=== PATIENT | female | born 1975 | race Caucasian/White ===

== ENCOUNTER 2018-03-24 11:03 | Inpatient (IN) | payer OTHER, MEDICAID, SELFPAY ==
[2018-03-24] VITALS (13 sets, daily range): BP systolic 124–158; BP diastolic 73–108; PULSE 60–120; RESP 12–20; TEMP 36.6–37; O2SAT 90–98; BMI 39.6
[2018-03-24] MEDS: ONDANSETRON 4 MG/2 ML INJ IV ×2 (11:46→15:00)
[2018-03-24 11:53] LABS: Add Manual Diff / Slide Review NO; Basophils Absolute Auto 100 /uL (0-100); Basophils Percent Auto 0.8 % (0-2); Eosinophils Absolute Auto 100 /uL (0-450); Eosinophils Percent Auto 0.5 % (2-4); Hematocrit 38.3 % (36-46); Hemoglobin 12.2 g/dL (12.0-16.0); Lymphocytes Absolute Auto 1300 /uL (1100-4500); Lymphocytes Percent Auto 12.1 % (25-40); Mean Corpuscular HGB Conc 31.8 % (30-36); Mean Corpuscular Hemoglobin 23.2 PG (26-34); Mean Corpuscular Volume 72.9 fL (80-100); Monocytes Absolute Auto 300 /uL (0-900); Monocytes Percent Auto 2.9 % (3-14); Neutrophils Absolute Auto 9300 /uL (1500-7000); Neutrophils Percent Auto 83.7 % (50-75); Platelet Count 306 X10^3/uL (150-400); Red Blood Cell Count 5.26 X10^6/uL (4.0-5.2); Red Cell Distribution Width 16.7 % (11.6-14.8); White Blood Cell Count 11.1 X10^3/uL (4.5-11.0)
[2018-03-24] MEDS: SODIUM CHLORIDE 0.9% 1,000 ML 1000 ML IV ×2 (12:06→14:35)
--- NOTE | 2018-03-24 12:06 | ED.ABDPAIN ---
HPI - Abdominal Pain <Denisha Ram PA-C - Last Filed: 03/24/18 20:04> General Chief Complaint: Abdominal Pain Stated Complaint: States pain in both kidneys, abd pain, vomiting Time Seen by Provider: 03/24/18 12:04 Source: patient Mode of arrival: ambulatory Limitations: no limitations History of Present Illness HPI narrative: This 43-year-old female comes to ED secondary to worsening epigastric area pain. She states that she has had left-sided flank pain for 9 or 10 days now and was actually seen at the walk-in clinic 03/14 for this. Presumed to be kidney stone. The day prior to onset of flank pain, she had some generalized abdominal pain and body aches all over.She states that she has had persistent flank pain this whole time, not resolved, but has not kept her from work. She states that she started to have right-sided flank pain as well which is less severe. She states that initially that pain felt similar to her previous kidney stone and they presumed that is what it was. She was treated with pain medicine and tamsulosin. He she states that yesterday morning, she started to have severe pain in the epigastric area. She states that her abdomen feels swollen and she feels puffy all over. She states that the pain pattern is a crescendo decrescendo pattern. It will gradually worsen over a period of 2 or 3 hr, then she will vomit, and the pain improves a little bit, then gradually starts to worsen until she vomits again. Somewhat better after vomiting. She has not been able to keep down food or fluids due to nausea associated with this. She states pain is quite severe and always persistent at some level in the epigastrium. She denies any urinary symptoms or hematuria. She denies any possibility of . She states that a couple of weeks ago her bowel movements were runny and now somewhat more constipated, had a bowel movement last night. She states that she had panendoscopy last year which was normal (she states that she has dumping syndrome). She denies any other exacerbating or alleviating features for pain aside from time and vomiting. She denies any chest pain, or dyspnea. She has not had any fever. Related Data Home Medications Medication Instructions Recorded Confirmed ipratropium bromide 17 1 puff INHALATION Q6H PRN 03/14/18 03/24/18 mcg/actuation HFA aerosol inhaler Previous Rx's Medication Instructions Recorded tamsulosin 0.4 mg capsule 0.4 mg PO DAILY #30 cap 03/14/18 tramadol 50 mg tablet 50 mg PO Q4-6H PRN #20 tab 03/14/18 Allergies Allergy/AdvReac Type Severity Reaction Status Date / Time morphine Allergy Severe Vomiting Verified 03/24/18 11:21 Review of Systems <Denisha Ram PA-C - Last Filed: 03/24/18 20:04> Review of Systems ROS Unobtainable: All systems reviewed & are unremarkable except as noted in HPI and below PFSH <Denisha Ram PA-C - Last Filed: 03/24/18 20:04> Comment: no EtOH, +THC Exam <Denisha Ram PA-C - Last Filed: 03/24/18 20:04> Narrative Exam Narrative: GENERAL APPEARANCE: Patient somewhat uncomfortable but in NAD HEENT: PERRL, EOMI, conjunctivae pink, no scleral icterus NECK: Supple LUNGS: Clear to auscultation bilaterally. HEART: Rate and rhythm regular, normal S1 and S2, no S3 or S4. ABDOMEN: Soft, obese, nondistended, bowel sounds present x 4 quadrants, no masses palpable, no palpable hepatosplenomegaly. tender through the epigastrium and left midline most just superior to the umbilicus, less tender on the right. No lower abdominal tenderness, guarding, or rebound. Exquisite left CVAT, none on the right EXTREMITIES: No edema, no cyanosis DERMATOLOGIC: No jaundice or exanthem NEUROLOGIC: Alert and oriented with normal speech and coordination Initial Vital Signs Initial Vital Signs: Vital Signs Temperature 98.6 F 03/24/18 11:17 Pulse Rate 120 H 03/24/18 11:17 Respiratory Rate 03/24/18 11:17 Blood Pressure 158/108 H 03/24/18 11:17 Pulse Oximetry 97 03/24/18 11:17 <Shay Vargas DO - Last Filed: 03/25/18 07:12> Initial Vital Signs Initial Vital Signs: Vital Signs Temperature 98.6 F 03/24/18 11:17 Pulse Rate 120 H 03/24/18 11:17 Respiratory Rate 03/24/18 11:17 Blood Pressure 158/108 H 03/24/18 11:17 Pulse Oximetry 97 03/24/18 11:17 Course <Denisha Ram PA-C - Last Filed: 03/24/18 20:04> Additional Information: Patient is not able to tolerate p.o fluids or food despite pain medications and [address] Coon who will admit patient. Orders Ordered: ED Orders 03/25/18 GI Panel (Film Array) Routine Procalcitonin Routine 03/25/18 05:53 Lipase Routine 03/25/18 17:15 Complete Blood Count AUTO DIFF DAILY Comprehensive Metabolic Panel DAILY 03/26/18 17:15 Complete Blood Count AUTO DIFF DAILY Comprehensive Metabolic Panel DAILY Enoxaparin Sodium (Lovenox) 40 mg SUBCUT DAILY [facility] Hydromorphone HCl (Dilaudid) 1 mg IV Q3HR PRN PRN Reason: Pain, Severe (7-10) Last Admin: 03/25/18 01:31 Dose: 1 mg Admin: 03/24/18 20:54 Dose: 1 mg Sodium Chloride (Normal Saline 0.9%) 1,000 mls @ 150 mls/hr IV CONT [facility] Last Admin: 03/25/18 00:31 Dose: 150 mls/hr Infusion: 03/25/18 00:31 Dose: 150 mls/hr Admin: 03/24/18 18:11 Dose: 150 mls/hr Ketorolac Tromethamine (Toradol) 30 mg IV Q6HR [facility] Stop: 03/26/18 17:04 Last Admin: 03/25/18 06:04 Dose: 30 mg Admin: 03/25/18 00:29 Dose: 30 mg Admin: 03/24/18 18:16 Dose: 30 mg Ondansetron HCl (Zofran) 4 mg IV Q8HR PRN PRN Reason: Nausea And Vomiting Last Admin: 03/25/18 01:30 Dose: 4 mg Pantoprazole Sodium (Protonix) 40 mg IV DAILY [facility] Last Admin: 03/25/18 03:27 Dose: 40 mg Discontinued Medications Dexamethasone (Decadron) 10 mg IV NOW ONE Stop: 03/24/18 13:11 Last Admin: 03/24/18 13:19 Dose: 10 mg Hydromorphone HCl (Dilaudid) 0.5 mg IV NOW ONE Stop: 03/24/18 12:22 Last Admin: 03/24/18 12:58 Dose: 0.5 mg Hydromorphone HCl (Dilaudid) 0.5 mg IV NOW ONE Stop: 03/24/18 14:31 Last Admin: 03/24/18 14:35 Dose: 0.5 mg Hydromorphone HCl (Dilaudid) 0.5 mg IV NOW ONE Stop: 03/24/18 14:33 Last Admin: 03/24/18 14:47 Dose: Not Given Hydromorphone HCl (Dilaudid) 1 mg IV NOW ONE Stop: 03/24/18 16:18 Last Admin: 03/24/18 16:31 Dose: 1 mg Sodium Chloride (Normal Saline 0.9%) 1,000 mls @ 1,000 mls/hr IV BOLUS ONE Stop: 03/24/18 13:04 Last Infusion: 03/24/18 14:46 Dose: 0 mls/hr Admin: 03/24/18 12:06 Dose: 1,000 mls/hr Sodium Chloride (Normal Saline 0.9%) 1,000 mls @ 1,000 mls/hr IV BOLUS ONE Stop: 03/24/18 15:29 Last Infusion: 03/24/18 15:55 Dose: 0 mls/hr Admin: 03/24/18 14:35 Dose: 1,000 mls/hr Sodium Chloride (Normal Saline 0.9%) 1,000 mls @ 1,000 mls/hr IV BOLUS ONE Stop: 03/24/18 15:31 Last Admin: 03/24/18 14:46 Dose: Not Given Ketorolac Tromethamine (Toradol) 30 mg IV NOW ONE Stop: 03/24/18 12:22 Last Admin: 03/24/18 12:56 Dose: 30 mg Ondansetron HCl (Zofran) 4 mg IV NOW ONE Stop: 03/24/18 11:34 Last Admin: 03/24/18 11:46 Dose: 4 mg Ondansetron HCl (Zofran) 4 mg IV NOW ONE Stop: 03/24/18 14:58 Last Admin: 03/24/18 15:00 Dose: 4 mg Pantoprazole Sodium (Protonix) 40 mg IV NOW ONE Stop: 03/24/18 12:22 Last Admin: 03/24/18 12:57 Dose: 40 mg Prochlorperazine (Compazine) 5 mg IV NOW ONE Stop: 03/24/18 16:18 Last Admin: 03/24/18 16:35 Dose: 5 mg Vital Signs - 8 hr 03/24/18 23:30 03/25/18 03:10 Temperature 97.9 F 97.6 F Pulse Rate 61 54 L Respiratory Rate 16 16 Blood Pressure 142/80 H 139/77 Pulse Oximetry 96 97 <Shay Vargas DO - Last Filed: 03/25/18 07:12> Orders Ordered: ED Orders 03/25/18 GI Panel (Film Array) Routine Procalcitonin Routine 03/25/18 05:53 Lipase Routine 03/25/18 17:15 Complete Blood Count AUTO DIFF DAILY Comprehensive Metabolic Panel DAILY 03/26/18 17:15 Complete Blood Count AUTO DIFF DAILY Comprehensive Metabolic Panel DAILY Enoxaparin Sodium (Lovenox) 40 mg SUBCUT DAILY [facility] Hydromorphone HCl (Dilaudid) 1 mg IV Q3HR PRN PRN Reason: Pain, Severe (7-10) Last Admin: 03/25/18 01:31 Dose: 1 mg Admin: 03/24/18 20:54 Dose: 1 mg Sodium Chloride (Normal Saline 0.9%) 1,000 mls @ 150 mls/hr IV CONT [facility] Last Admin: 03/25/18 00:31 Dose: 150 mls/hr Infusion: 03/25/18 00:31 Dose: 150 mls/hr Admin: 03/24/18 18:11 Dose: 150 mls/hr Ketorolac Tromethamine (Toradol) 30 mg IV Q6HR [facility] Stop: 03/26/18 17:04 Last Admin: 03/25/18 06:04 Dose: 30 mg Admin: 03/25/18 00:29 Dose: 30 mg Admin: 03/24/18 18:16 Dose: 30 mg Ondansetron HCl (Zofran) 4 mg IV Q8HR PRN PRN Reason: Nausea And Vomiting Last Admin: 03/25/18 01:30 Dose: 4 mg Pantoprazole Sodium (Protonix) 40 mg IV DAILY [facility] Last Admin: 03/25/18 03:27 Dose: 40 mg Discontinued Medications Dexamethasone (Decadron) 10 mg IV NOW ONE Stop: 03/24/18 13:11 Last Admin: 03/24/18 13:19 Dose: 10 mg Hydromorphone HCl (Dilaudid) 0.5 mg IV NOW ONE Stop: 03/24/18 12:22 Last Admin: 03/24/18 12:58 Dose: 0.5 mg Hydromorphone HCl (Dilaudid) 0.5 mg IV NOW ONE Stop: 03/24/18 14:31 Last Admin: 03/24/18 14:35 Dose: 0.5 mg Hydromorphone HCl (Dilaudid) 0.5 mg IV NOW ONE Stop: 03/24/18 14:33 Last Admin: 03/24/18 14:47 Dose: Not Given Hydromorphone HCl (Dilaudid) 1 mg IV NOW ONE Stop: 03/24/18 16:18 Last Admin: 03/24/18 16:31 Dose: 1 mg Sodium Chloride (Normal Saline 0.9%) 1,000 mls @ 1,000 mls/hr IV BOLUS ONE Stop: 03/24/18 13:04 Last Infusion: 03/24/18 14:46 Dose: 0 mls/hr Admin: 03/24/18 12:06 Dose: 1,000 mls/hr Sodium Chloride (Normal Saline 0.9%) 1,000 mls @ 1,000 mls/hr IV BOLUS ONE Stop: 03/24/18 15:29 Last Infusion: 03/24/18 15:55 Dose: 0 mls/hr Admin: 03/24/18 14:35 Dose: 1,000 mls/hr Sodium Chloride (Normal Saline 0.9%) 1,000 mls @ 1,000 mls/hr IV BOLUS ONE Stop: 03/24/18 15:31 Last Admin: 03/24/18 14:46 Dose: Not Given Ketorolac Tromethamine (Toradol) 30 mg IV NOW ONE Stop: 03/24/18 12:22 Last Admin: 03/24/18 12:56 Dose: 30 mg Ondansetron HCl (Zofran) 4 mg IV NOW ONE Stop: 03/24/18 11:34 Last Admin: 03/24/18 11:46 Dose: 4 mg Ondansetron HCl (Zofran) 4 mg IV NOW ONE Stop: 03/24/18 14:58 Last Admin: 03/24/18 15:00 Dose: 4 mg Pantoprazole Sodium (Protonix) 40 mg IV NOW ONE Stop: 03/24/18 12:22 Last Admin: 03/24/18 12:57 Dose: 40 mg Prochlorperazine (Compazine) 5 mg IV NOW ONE Stop: 03/24/18 16:18 Last Admin: 03/24/18 16:35 Dose: 5 mg Vital Signs - 8 hr 03/24/18 23:30 03/25/18 03:10 Temperature 97.9 F 97.6 F Pulse Rate 61 54 L Respiratory Rate 16 16 Blood Pressure 142/80 H 139/77 Pulse Oximetry 96 97 MDM - Abdominal Pain <Denisha Ram PA-C - Last Filed: 03/24/18 20:04> Lab Data Attestation: I reviewed the patient's lab results. Result diagrams: 03/24/18 11:42 03/24/18 11:42 Lab Results 03/24/18 03/24/18 03/24/18 Range/Units 11:42 11:42 11:42 WBC 11.1 H (4.5-11.0) X10^3/uL RBC 5.26 H (4.0-5.2) X10^6/uL Hgb 12.2 (12.0-16.0) g/dL Hct 38.3 (36-46) % MCV 72.9 L (80-100) fL MCH 23.2 L (26-34) PG MCHC 31.8 (30-36) % RDW 16.7 H (11.6-14.8) % Plt Count 306 (150-400) X10^3/uL Neut % (Auto) 83.7 H (50-75) % Lymph % (Auto) 12.1 L (25-40) % [place] % (Auto) 2.9 L (3-14) % Eos % (Auto) 0.5 L (2-4) % Baso % (Auto) 0.8 (0-2) % Neut # (Auto) 9300 H (8610-4756) /uL Lymph # (Auto) 1300 (0789-0951) /uL [place] # (Auto) 300 (0-900) /uL Eos # (Auto) 100 (0-450) /uL Baso # (Auto) 100 (0-100) /uL PT 11.8 (10.1-12.7) SECONDS INR 1.0 (0.9-1.3) APTT 28 (26.4-36.2) SECONDS Sodium 139 (137-145) mmol/L Potassium 4.1 (3.4-5.1) mmol/L Chloride 106 (98-107) mmol/L Carbon Dioxide 24 (22-32) mmol/L BUN 6 L (7-17) mg/dL Creatinine 0.70 (0.52-1.04) mg/dL Estimated GFR > 60.0 (>60) mL/min BUN/Creatinine Ratio 8.6 (6-22) Glucose 108 H (70-100) mg/dL Calcium 9.0 (8.4-10.2) mg/dL Total Bilirubin 0.4 (0.2-1.3) mg/dL AST 18 (14-36) IU/L ALT 28 (9-52) IU/L Alkaline Phosphatase 72 (38-126) U/L Total Protein 7.8 (6.3-8.2) g/dL Albumin 4.2 (3.5-5.0) g/dL Globulin 3.6 (1.7-4.1) g/dL Albumin/Globulin Ratio 1.2 (1.0-2.8) Lipase 70 (23-300) U/L Influenza A & B (PCR) (Negative) 03/24/18 03/25/18 Range/Units 12:00 05:53 WBC (4.5-11.0) X10^3/uL RBC (4.0-5.2) X10^6/uL Hgb (12.0-16.0) g/dL Hct (36-46) % MCV (80-100) fL MCH (26-34) PG MCHC (30-36) % RDW (11.6-14.8) % Plt Count (150-400) X10^3/uL Neut % (Auto) (50-75) % Lymph % (Auto) (25-40) % [place] % (Auto) (3-14) % Eos % (Auto) (2-4) % Baso % (Auto) (0-2) % Neut # (Auto) (1648-7733) /uL Lymph # (Auto) (3467-5307) /uL [place] # (Auto) (0-900) /uL Eos # (Auto) (0-450) /uL Baso # (Auto) (0-100) /uL PT (10.1-12.7) SECONDS INR (0.9-1.3) APTT (26.4-36.2) SECONDS Sodium (137-145) mmol/L Potassium (3.4-5.1) mmol/L Chloride (98-107) mmol/L Carbon Dioxide (22-32) mmol/L BUN (7-17) mg/dL Creatinine (0.52-1.04) mg/dL Estimated GFR (>60) mL/min BUN/Creatinine Ratio (6-22) Glucose (70-100) mg/dL Calcium (8.4-10.2) mg/dL Total Bilirubin (0.2-1.3) mg/dL AST (14-36) IU/L ALT (9-52) IU/L Alkaline Phosphatase (38-126) U/L Total Protein (6.3-8.2) g/dL Albumin (3.5-5.0) g/dL Globulin (1.7-4.1) g/dL Albumin/Globulin Ratio (1.0-2.8) Lipase 52 (23-300) U/L Influenza A & B (PCR) Negative (Negative) Point of care testing: Point of Care Testing Test Results Negative Urine Dip Bedside Urine Glucose Negative Bedside Urine Bilirubin - Negative Bedside Urine Ketone - Negative Urine Specific [place] 1.010 Bedside Urine Occult Blood - Negative Bedside Urine pH 6.0 Bedside Urine Protein - Negative Bedside Urine Urobilinogen - Negative Bedside Urine Nitrite - Negative Bedside Urine Leukocytes - Negative Esterase Imaging Data CT scan - abdomen: Radiologist's impression: [address] [address] [address] Scan Report Signed Patient: Tammi Rodriguez [facility]#: [id number] : 1975Acct:[id number] Age/Sex: 43 / FDate of Service: 03/24/18 Loc: ED Accession Number: [id number] Procedure: CT abdomen pelvis w con Ordering Provider: Denisha Ram P.A-C PROCEDURE: CT ABDOMEN PELVIS W CON INDICATIONS: epigastric and bilateral flank pain, vomiting TECHNIQUE: After the administration of intravenous contrast, 5 mm thick sections acquired from the diaphragm to the symphysis. 5 mm coronal and sagittal reformats were acquired. For radiation dose reduction, the following was used: automated exposure control, adjustment of mA and/or kV according to patient size. COMPARISON: None. FINDINGS: Image quality: Excellent. ABDOMEN: Lung bases: Lung bases are clear. Heart size is normal. Solid organs: Liver is normal in size and enhancement. Gallbladder is within normal limits. Biliary system is non dilated. Pancreas enhances normally. Spleen is normal in size and enhancement. No adrenal nodules. Kidneys demonstrate normal size and enhancement, without hydronephrosis. Peritoneum and bowel: A small hiatal hernia is present. The stomach is within normal limits. The proximal and mid small bowel is within normal limits. There is moderate distention and equalization of the terminal ileum. There is mild fat stranding surrounding the terminal ileum. Appendix is normal. The colon is nondistended and demonstrates no evidence of thickening. No free fluid or air. Nodes and vessels: No retroperitoneal or mesenteric adenopathy by size criteria. Mildly prominent mesenteric lymph nodes are present measuring less than 10 mm short axis. Aorta and inferior vena cava are normal in size. Miscellaneous: No ventral hernias. PELVIS: Genitourinary: Bladder wall thickness is normal. Miscellaneous: No inguinal hernias or adenopathy. Bones: No suspicious bony lesions. No vertebral body compression fractures. IMPRESSION: 1. Terminal ileitis. Differential considerations include infection, as well as inflammatory bowel disease. 2. Mildly prominent mesenteric lymph nodes, compatible with mesenteric adenitis/gastroenteritis. 3. Small hiatal hernia. Dictated by: Jasper Lomeli M.D. on 03/24/2018 at 12:48 Approved by: Jasper Lomeli M.D. on 03/24/2018 at 12:51 <Shay Vargas DO - Last Filed: 03/25/18 07:12> Lab Data Lab Results 03/24/18 03/24/18 03/24/18 Range/Units 11:42 11:42 11:42 WBC 11.1 H (4.5-11.0) X10^3/uL RBC 5.26 H (4.0-5.2) X10^6/uL Hgb 12.2 (12.0-16.0) g/dL Hct 38.3 (36-46) % MCV 72.9 L (80-100) fL MCH 23.2 L (26-34) PG MCHC 31.8 (30-36) % RDW 16.7 H (11.6-14.8) % Plt Count 306 (150-400) X10^3/uL Neut % (Auto) 83.7 H (50-75) % Lymph % (Auto) 12.1 L (25-40) % [place] % (Auto) 2.9 L (3-14) % Eos % (Auto) 0.5 L (2-4) % Baso % (Auto) 0.8 (0-2) % Neut # (Auto) 9300 H (8246-8862) /uL Lymph # (Auto) 1300 (8401-1905) /uL [place] # (Auto) 300 (0-900) /uL Eos # (Auto) 100 (0-450) /uL Baso # (Auto) 100 (0-100) /uL PT 11.8 (10.1-12.7) SECONDS INR 1.0 (0.9-1.3) APTT 28 (26.4-36.2) SECONDS Sodium 139 (137-145) mmol/L Potassium 4.1 (3.4-5.1) mmol/L Chloride 106 (98-107) mmol/L Carbon Dioxide 24 (22-32) mmol/L BUN 6 L (7-17) mg/dL Creatinine 0.70 (0.52-1.04) mg/dL Estimated GFR > 60.0 (>60) mL/min BUN/Creatinine Ratio 8.6 (6-22) Glucose 108 H (70-100) mg/dL Calcium 9.0 (8.4-10.2) mg/dL Total Bilirubin 0.4 (0.2-1.3) mg/dL AST 18 (14-36) IU/L ALT 28 (9-52) IU/L Alkaline Phosphatase 72 (38-126) U/L Total Protein 7.8 (6.3-8.2) g/dL Albumin 4.2 (3.5-5.0) g/dL Globulin 3.6 (1.7-4.1) g/dL Albumin/Globulin Ratio 1.2 (1.0-2.8) Lipase 70 (23-300) U/L Influenza A & B (PCR) (Negative) 03/24/18 03/25/18 Range/Units 12:00 05:53 WBC (4.5-11.0) X10^3/uL RBC (4.0-5.2) X10^6/uL Hgb (12.0-16.0) g/dL Hct (36-46) % MCV (80-100) fL MCH (26-34) PG MCHC (30-36) % RDW (11.6-14.8) % Plt Count (150-400) X10^3/uL Neut % (Auto) (50-75) % Lymph % (Auto) (25-40) % [place] % (Auto) (3-14) % Eos % (Auto) (2-4) % Baso % (Auto) (0-2) % Neut # (Auto) (1017-4942) /uL Lymph # (Auto) (9858-3164) /uL [place] # (Auto) (0-900) /uL Eos # (Auto) (0-450) /uL Baso # (Auto) (0-100) /uL PT (10.1-12.7) SECONDS INR (0.9-1.3) APTT (26.4-36.2) SECONDS Sodium (137-145) mmol/L Potassium (3.4-5.1) mmol/L Chloride (98-107) mmol/L Carbon Dioxide (22-32) mmol/L BUN (7-17) mg/dL Creatinine (0.52-1.04) mg/dL Estimated GFR (>60) mL/min BUN/Creatinine Ratio (6-22) Glucose (70-100) mg/dL Calcium (8.4-10.2) mg/dL Total Bilirubin (0.2-1.3) mg/dL AST (14-36) IU/L ALT (9-52) IU/L Alkaline Phosphatase (38-126) U/L Total Protein (6.3-8.2) g/dL Albumin (3.5-5.0) g/dL Globulin (1.7-4.1) g/dL Albumin/Globulin Ratio (1.0-2.8) Lipase 52 (23-300) U/L Influenza A & B (PCR) Negative (Negative) Point of care testing: Point of Care Testing Test Results Negative Urine Dip Bedside Urine Glucose Negative Bedside Urine Bilirubin - Negative Bedside Urine Ketone - Negative Urine Specific [place] 1.010 Bedside Urine Occult Blood - Negative Bedside Urine pH 6.0 Bedside Urine Protein - Negative Bedside Urine Urobilinogen - Negative Bedside Urine Nitrite - Negative Bedside Urine Leukocytes - Negative Esterase Discharge Plan Departure Patient Disposition: Admitted As Inpatient Clinical Impression: Terminal ileitis, Acute mesenteric adenitis Discharge Date/Time: 03/24/18 17:47 Interventions: ED Discharge Assessment Last Done: 03/24/18 17:43 Admit Date/Time: 03/24/18 16:36 Admit Provider: Jenelle Coon <Shay Vargas DO - Last Filed: 03/25/18 07:12> Cosign ED Attending Jessica Attestation: I was available for consultation during this patient's emergency department encounter
[2018-03-24 12:13] LABS: Prothrombin Time 11.8 SECONDS (10.1-12.7)
[2018-03-24 12:16] LABS: PTT Partial Thromboplastin Tim 28 SECONDS (26.4-36.2)
[2018-03-24 12:17] LABS: Alanine Aminotransferase 28 IU/L (9-52); Albumin 4.2 g/dL (3.5-5.0); Albumin Globulin Ratio 1.2 (1.0-2.8); Alkaline Phosphatase 72 U/L (38-126); Aspartate Aminotransferase 18 IU/L (14-36); BUN Creatinine Ratio 8.6 (6-22); Bilirubin Total 0.4 mg/dL (0.2-1.3); Blood Urea Nitrogen 6 mg/dL (7-17); Carbon Dioxide 24 mmol/L (22-32); Chloride 106 mmol/L (98-107); Estimated Glomerular Filt Rate > 60.0 mL/min (>60); Globulin 3.6 g/dL (1.7-4.1); Glucose 108 mg/dL (70-100); HEMOLYSIS < 15 (0-50); Lipase 70 U/L (23-300); Potassium 4.1 mmol/L (3.4-5.1); Sodium 139 mmol/L (137-145); Total Protein 7.8 g/dL (6.3-8.2)
--- NOTE | 2018-03-24 12:21 | DI.CT.S_ITS ---
PROCEDURE: CT ABDOMEN PELVIS W CON INDICATIONS: epigastric and bilateral flank pain, vomiting TECHNIQUE: After the administration of intravenous contrast, 5 mm thick sections acquired from the diaphragm to the symphysis. 5 mm coronal and sagittal reformats were acquired. For radiation dose reduction, the following was used: automated exposure control, adjustment of mA and/or kV according to patient size. COMPARISON: None. FINDINGS: Image quality: Excellent. ABDOMEN: Lung bases: Lung bases are clear. Heart size is normal. Solid organs: Liver is normal in size and enhancement. Gallbladder is within normal limits. Biliary system is non dilated. Pancreas enhances normally. Spleen is normal in size and enhancement. No adrenal nodules. Kidneys demonstrate normal size and enhancement, without hydronephrosis. Peritoneum and bowel: A small hiatal hernia is present. The stomach is within normal limits. The proximal and mid small bowel is within normal limits. There is moderate distention and equalization of the terminal ileum. There is mild fat stranding surrounding the terminal ileum. Appendix is normal. The colon is nondistended and demonstrates no evidence of thickening. No free fluid or air. Nodes and vessels: No retroperitoneal or mesenteric adenopathy by size criteria. Mildly prominent mesenteric lymph nodes are present measuring less than 10 mm short axis. Aorta and inferior vena cava are normal in size. Miscellaneous: No ventral hernias. PELVIS: Genitourinary: Bladder wall thickness is normal. Miscellaneous: No inguinal hernias or adenopathy. Bones: No suspicious bony lesions. No vertebral body compression fractures. IMPRESSION: 1. Terminal ileitis. Differential considerations include infection, as well as inflammatory bowel disease. 2. Mildly prominent mesenteric lymph nodes, compatible with mesenteric adenitis/gastroenteritis. 3. Small hiatal hernia. Dictated by: Jasper Lomeli M.D. on 03/24/2018 at 12:48 Approved by: Jasper Lomeli M.D. on 03/24/2018 at 12:51
--- NOTE | 2018-03-24 12:38 | ED_ITS ---
HPI - Abdominal Pain <Denisha Ram PA-C - Last Filed: 03/24/18 20:04> General Chief Complaint: Abdominal Pain Stated Complaint: States pain in both kidneys, abd pain, vomiting Time Seen by Provider: 03/24/18 12:04 Source: patient Mode of arrival: ambulatory Limitations: no limitations History of Present Illness HPI narrative: This 43-year-old female comes to ED secondary to worsening epigastric area pain. She states that she has had left-sided flank pain for 9 or 10 days now and was actually seen at the walk-in clinic 03/14 for this. Presumed to be kidney stone. The day prior to onset of flank pain, she had some generalized abdominal pain and body aches all over.She states that she has had persistent flank pain this whole time, not resolved, but has not kept her from work. She states that she started to have right-sided flank pain as well which is less severe. She states that initially that pain felt similar to her previous kidney stone and they presumed that is what it was. She was treated with pain medicine and tamsulosin. He she states that yesterday morning, she started to have severe pain in the epigastric area. She states that her abdomen feels swollen and she feels puffy all over. She states that the pain pattern is a crescendo decrescendo pattern. It will gradually worsen over a period of 2 or 3 hr, then she will vomit, and the pain improves a little bit, then gradually starts to worsen until she vomits again. Somewhat better after vomiting. She has not been able to keep down food or fluids due to nausea associated with this. She states pain is quite severe and always persistent at some level in the epigastrium. She denies any urinary symptoms or hematuria. She denies any possibility of . She states that a couple of weeks ago her bowel movements were runny and now somewhat more constipated, had a bowel movement last night. She states that she had panendoscopy last year which was normal (she states that she has dumping syndrome). She denies any other exacerbating or alleviating features for pain aside from time and vomiting. She denies any chest pain, or dyspnea. She has not had any fever. Related Data Home Medications Medication Instructions Recorded Confirmed ipratropium bromide 17 1 puff INHALATION Q6H PRN 03/14/18 03/24/18 mcg/actuation HFA aerosol inhaler Previous Rx's Medication Instructions Recorded tamsulosin 0.4 mg capsule 0.4 mg PO DAILY #30 cap 03/14/18 tramadol 50 mg tablet 50 mg PO Q4-6H PRN #20 tab 03/14/18 Allergies Allergy/AdvReac Type Severity Reaction Status Date / Time morphine Allergy Severe Vomiting Verified 03/24/18 11:21 Review of Systems <Denisha Ram PA-C - Last Filed: 03/24/18 20:04> Review of Systems ROS Unobtainable: All systems reviewed & are unremarkable except as noted in HPI and below PFSH <Denisha Ram PA-C - Last Filed: 03/24/18 20:04> Comment: no EtOH, +THC Exam <Denisha Ram PA-C - Last Filed: 03/24/18 20:04> Narrative Exam Narrative: GENERAL APPEARANCE: Patient somewhat uncomfortable but in NAD HEENT: PERRL, EOMI, conjunctivae pink, no scleral icterus NECK: Supple LUNGS: Clear to auscultation bilaterally. HEART: Rate and rhythm regular, normal S1 and S2, no S3 or S4. ABDOMEN: Soft, obese, nondistended, bowel sounds present x 4 quadrants, no masses palpable, no palpable hepatosplenomegaly. tender through the epigastrium and left midline most just superior to the umbilicus, less tender on the right. No lower abdominal tenderness, guarding, or rebound. Exquisite left CVAT, none on the right EXTREMITIES: No edema, no cyanosis DERMATOLOGIC: No jaundice or exanthem NEUROLOGIC: Alert and oriented with normal speech and coordination Initial Vital Signs Initial Vital Signs: Vital Signs Temperature 98.6 F 03/24/18 11:17 Pulse Rate 120 H 03/24/18 11:17 Respiratory Rate 03/24/18 11:17 Blood Pressure 158/108 H 03/24/18 11:17 Pulse Oximetry 97 03/24/18 11:17 <Shay Vargas DO - Last Filed: 03/25/18 07:12> Initial Vital Signs Initial Vital Signs: Vital Signs Temperature 98.6 F 03/24/18 11:17 Pulse Rate 120 H 03/24/18 11:17 Respiratory Rate 03/24/18 11:17 Blood Pressure 158/108 H 03/24/18 11:17 Pulse Oximetry 97 03/24/18 11:17 Course <Denisha Ram PA-C - Last Filed: 03/24/18 20:04> Additional Information: Patient is not able to tolerate p.o fluids or food despite pain medications and [address] Coon who will admit patient. Orders Ordered: ED Orders 03/25/18 GI Panel (Film Array) Routine Procalcitonin Routine 03/25/18 05:53 Lipase Routine 03/25/18 17:15 Complete Blood Count AUTO DIFF DAILY Comprehensive Metabolic Panel DAILY 03/26/18 17:15 Complete Blood Count AUTO DIFF DAILY Comprehensive Metabolic Panel DAILY Enoxaparin Sodium (Lovenox) 40 mg SUBCUT DAILY [facility] Hydromorphone HCl (Dilaudid) 1 mg IV Q3HR PRN PRN Reason: Pain, Severe (7-10) Last Admin: 03/25/18 01:31 Dose: 1 mg Admin: 03/24/18 20:54 Dose: 1 mg Sodium Chloride (Normal Saline 0.9%) 1,000 mls @ 150 mls/hr IV CONT [facility] Last Admin: 03/25/18 00:31 Dose: 150 mls/hr Infusion: 03/25/18 00:31 Dose: 150 mls/hr Admin: 03/24/18 18:11 Dose: 150 mls/hr Ketorolac Tromethamine (Toradol) 30 mg IV Q6HR [facility] Stop: 03/26/18 17:04 Last Admin: 03/25/18 06:04 Dose: 30 mg Admin: 03/25/18 00:29 Dose: 30 mg Admin: 03/24/18 18:16 Dose: 30 mg Ondansetron HCl (Zofran) 4 mg IV Q8HR PRN PRN Reason: Nausea And Vomiting Last Admin: 03/25/18 01:30 Dose: 4 mg Pantoprazole Sodium (Protonix) 40 mg IV DAILY [facility] Last Admin: 03/25/18 03:27 Dose: 40 mg Discontinued Medications Dexamethasone (Decadron) 10 mg IV NOW ONE Stop: 03/24/18 13:11 Last Admin: 03/24/18 13:19 Dose: 10 mg Hydromorphone HCl (Dilaudid) 0.5 mg IV NOW ONE Stop: 03/24/18 12:22 Last Admin: 03/24/18 12:58 Dose: 0.5 mg Hydromorphone HCl (Dilaudid) 0.5 mg IV NOW ONE Stop: 03/24/18 14:31 Last Admin: 03/24/18 14:35 Dose: 0.5 mg Hydromorphone HCl (Dilaudid) 0.5 mg IV NOW ONE Stop: 03/24/18 14:33 Last Admin: 03/24/18 14:47 Dose: Not Given Hydromorphone HCl (Dilaudid) 1 mg IV NOW ONE Stop: 03/24/18 16:18 Last Admin: 03/24/18 16:31 Dose: 1 mg Sodium Chloride (Normal Saline 0.9%) 1,000 mls @ 1,000 mls/hr IV BOLUS ONE Stop: 03/24/18 13:04 Last Infusion: 03/24/18 14:46 Dose: 0 mls/hr Admin: 03/24/18 12:06 Dose: 1,000 mls/hr Sodium Chloride (Normal Saline 0.9%) 1,000 mls @ 1,000 mls/hr IV BOLUS ONE Stop: 03/24/18 15:29 Last Infusion: 03/24/18 15:55 Dose: 0 mls/hr Admin: 03/24/18 14:35 Dose: 1,000 mls/hr Sodium Chloride (Normal Saline 0.9%) 1,000 mls @ 1,000 mls/hr IV BOLUS ONE Stop: 03/24/18 15:31 Last Admin: 03/24/18 14:46 Dose: Not Given Ketorolac Tromethamine (Toradol) 30 mg IV NOW ONE Stop: 03/24/18 12:22 Last Admin: 03/24/18 12:56 Dose: 30 mg Ondansetron HCl (Zofran) 4 mg IV NOW ONE Stop: 03/24/18 11:34 Last Admin: 03/24/18 11:46 Dose: 4 mg Ondansetron HCl (Zofran) 4 mg IV NOW ONE Stop: 03/24/18 14:58 Last Admin: 03/24/18 15:00 Dose: 4 mg Pantoprazole Sodium (Protonix) 40 mg IV NOW ONE Stop: 03/24/18 12:22 Last Admin: 03/24/18 12:57 Dose: 40 mg Prochlorperazine (Compazine) 5 mg IV NOW ONE Stop: 03/24/18 16:18 Last Admin: 03/24/18 16:35 Dose: 5 mg Vital Signs - 8 hr 03/24/18 23:30 03/25/18 03:10 Temperature 97.9 F 97.6 F Pulse Rate 61 54 L Respiratory Rate 16 16 Blood Pressure 142/80 H 139/77 Pulse Oximetry 96 97 <Shay Vargas DO - Last Filed: 03/25/18 07:12> Orders Ordered: ED Orders 03/25/18 GI Panel (Film Array) Routine Procalcitonin Routine 03/25/18 05:53 Lipase Routine 03/25/18 17:15 Complete Blood Count AUTO DIFF DAILY Comprehensive Metabolic Panel DAILY 03/26/18 17:15 Complete Blood Count AUTO DIFF DAILY Comprehensive Metabolic Panel DAILY Enoxaparin Sodium (Lovenox) 40 mg SUBCUT DAILY [facility] Hydromorphone HCl (Dilaudid) 1 mg IV Q3HR PRN PRN Reason: Pain, Severe (7-10) Last Admin: 03/25/18 01:31 Dose: 1 mg Admin: 03/24/18 20:54 Dose: 1 mg Sodium Chloride (Normal Saline 0.9%) 1,000 mls @ 150 mls/hr IV CONT [facility] Last Admin: 03/25/18 00:31 Dose: 150 mls/hr Infusion: 03/25/18 00:31 Dose: 150 mls/hr Admin: 03/24/18 18:11 Dose: 150 mls/hr Ketorolac Tromethamine (Toradol) 30 mg IV Q6HR [facility] Stop: 03/26/18 17:04 Last Admin: 03/25/18 06:04 Dose: 30 mg Admin: 03/25/18 00:29 Dose: 30 mg Admin: 03/24/18 18:16 Dose: 30 mg Ondansetron HCl (Zofran) 4 mg IV Q8HR PRN PRN Reason: Nausea And Vomiting Last Admin: 03/25/18 01:30 Dose: 4 mg Pantoprazole Sodium (Protonix) 40 mg IV DAILY [facility] Last Admin: 03/25/18 03:27 Dose: 40 mg Discontinued Medications Dexamethasone (Decadron) 10 mg IV NOW ONE Stop: 03/24/18 13:11 Last Admin: 03/24/18 13:19 Dose: 10 mg Hydromorphone HCl (Dilaudid) 0.5 mg IV NOW ONE Stop: 03/24/18 12:22 Last Admin: 03/24/18 12:58 Dose: 0.5 mg Hydromorphone HCl (Dilaudid) 0.5 mg IV NOW ONE Stop: 03/24/18 14:31 Last Admin: 03/24/18 14:35 Dose: 0.5 mg Hydromorphone HCl (Dilaudid) 0.5 mg IV NOW ONE Stop: 03/24/18 14:33 Last Admin: 03/24/18 14:47 Dose: Not Given Hydromorphone HCl (Dilaudid) 1 mg IV NOW ONE Stop: 03/24/18 16:18 Last Admin: 03/24/18 16:31 Dose: 1 mg Sodium Chloride (Normal Saline 0.9%) 1,000 mls @ 1,000 mls/hr IV BOLUS ONE Stop: 03/24/18 13:04 Last Infusion: 03/24/18 14:46 Dose: 0 mls/hr Admin: 03/24/18 12:06 Dose: 1,000 mls/hr Sodium Chloride (Normal Saline 0.9%) 1,000 mls @ 1,000 mls/hr IV BOLUS ONE Stop: 03/24/18 15:29 Last Infusion: 03/24/18 15:55 Dose: 0 mls/hr Admin: 03/24/18 14:35 Dose: 1,000 mls/hr Sodium Chloride (Normal Saline 0.9%) 1,000 mls @ 1,000 mls/hr IV BOLUS ONE Stop: 03/24/18 15:31 Last Admin: 03/24/18 14:46 Dose: Not Given Ketorolac Tromethamine (Toradol) 30 mg IV NOW ONE Stop: 03/24/18 12:22 Last Admin: 03/24/18 12:56 Dose: 30 mg Ondansetron HCl (Zofran) 4 mg IV NOW ONE Stop: 03/24/18 11:34 Last Admin: 03/24/18 11:46 Dose: 4 mg Ondansetron HCl (Zofran) 4 mg IV NOW ONE Stop: 03/24/18 14:58 Last Admin: 03/24/18 15:00 Dose: 4 mg Pantoprazole Sodium (Protonix) 40 mg IV NOW ONE Stop: 03/24/18 12:22 Last Admin: 03/24/18 12:57 Dose: 40 mg Prochlorperazine (Compazine) 5 mg IV NOW ONE Stop: 03/24/18 16:18 Last Admin: 03/24/18 16:35 Dose: 5 mg Vital Signs - 8 hr 03/24/18 23:30 03/25/18 03:10 Temperature 97.9 F 97.6 F Pulse Rate 61 54 L Respiratory Rate 16 16 Blood Pressure 142/80 H 139/77 Pulse Oximetry 96 97 MDM - Abdominal Pain <Denisha Ram PA-C - Last Filed: 03/24/18 20:04> Lab Data Attestation: I reviewed the patient's lab results. Result diagrams: 03/24/18 11:42 03/24/18 11:42 Lab Results 03/24/18 03/24/18 03/24/18 Range/Units 11:42 11:42 11:42 WBC 11.1 H (4.5-11.0) X10^3/uL RBC 5.26 H (4.0-5.2) X10^6/uL Hgb 12.2 (12.0-16.0) g/dL Hct 38.3 (36-46) % MCV 72.9 L (80-100) fL MCH 23.2 L (26-34) PG MCHC 31.8 (30-36) % RDW 16.7 H (11.6-14.8) % Plt Count 306 (150-400) X10^3/uL Neut % (Auto) 83.7 H (50-75) % Lymph % (Auto) 12.1 L (25-40) % [place] % (Auto) 2.9 L (3-14) % Eos % (Auto) 0.5 L (2-4) % Baso % (Auto) 0.8 (0-2) % Neut # (Auto) 9300 H (4998-2942) /uL Lymph # (Auto) 1300 (7839-9365) /uL [place] # (Auto) 300 (0-900) /uL Eos # (Auto) 100 (0-450) /uL Baso # (Auto) 100 (0-100) /uL PT 11.8 (10.1-12.7) SECONDS INR 1.0 (0.9-1.3) APTT 28 (26.4-36.2) SECONDS Sodium 139 (137-145) mmol/L Potassium 4.1 (3.4-5.1) mmol/L Chloride 106 (98-107) mmol/L Carbon Dioxide 24 (22-32) mmol/L BUN 6 L (7-17) mg/dL Creatinine 0.70 (0.52-1.04) mg/dL Estimated GFR > 60.0 (>60) mL/min BUN/Creatinine Ratio 8.6 (6-22) Glucose 108 H (70-100) mg/dL Calcium 9.0 (8.4-10.2) mg/dL Total Bilirubin 0.4 (0.2-1.3) mg/dL AST 18 (14-36) IU/L ALT 28 (9-52) IU/L Alkaline Phosphatase 72 (38-126) U/L Total Protein 7.8 (6.3-8.2) g/dL Albumin 4.2 (3.5-5.0) g/dL Globulin 3.6 (1.7-4.1) g/dL Albumin/Globulin Ratio 1.2 (1.0-2.8) Lipase 70 (23-300) U/L Influenza A & B (PCR) (Negative) 03/24/18 03/25/18 Range/Units 12:00 05:53 WBC (4.5-11.0) X10^3/uL RBC (4.0-5.2) X10^6/uL Hgb (12.0-16.0) g/dL Hct (36-46) % MCV (80-100) fL MCH (26-34) PG MCHC (30-36) % RDW (11.6-14.8) % Plt Count (150-400) X10^3/uL Neut % (Auto) (50-75) % Lymph % (Auto) (25-40) % [place] % (Auto) (3-14) % Eos % (Auto) (2-4) % Baso % (Auto) (0-2) % Neut # (Auto) (9827-1661) /uL Lymph # (Auto) (2922-7761) /uL [place] # (Auto) (0-900) /uL Eos # (Auto) (0-450) /uL Baso # (Auto) (0-100) /uL PT (10.1-12.7) SECONDS INR (0.9-1.3) APTT (26.4-36.2) SECONDS Sodium (137-145) mmol/L Potassium (3.4-5.1) mmol/L Chloride (98-107) mmol/L Carbon Dioxide (22-32) mmol/L BUN (7-17) mg/dL Creatinine (0.52-1.04) mg/dL Estimated GFR (>60) mL/min BUN/Creatinine Ratio (6-22) Glucose (70-100) mg/dL Calcium (8.4-10.2) mg/dL Total Bilirubin (0.2-1.3) mg/dL AST (14-36) IU/L ALT (9-52) IU/L Alkaline Phosphatase (38-126) U/L Total Protein (6.3-8.2) g/dL Albumin (3.5-5.0) g/dL Globulin (1.7-4.1) g/dL Albumin/Globulin Ratio (1.0-2.8) Lipase 52 (23-300) U/L Influenza A & B (PCR) Negative (Negative) Point of care testing: Point of Care Testing Test Results Negative Urine Dip Bedside Urine Glucose Negative Bedside Urine Bilirubin - Negative Bedside Urine Ketone - Negative Urine Specific [place] 1.010 Bedside Urine Occult Blood - Negative Bedside Urine pH 6.0 Bedside Urine Protein - Negative Bedside Urine Urobilinogen - Negative Bedside Urine Nitrite - Negative Bedside Urine Leukocytes - Negative Esterase Imaging Data CT scan - abdomen: Radiologist's impression: [address] [id number] [address] Scan Report Signed Patient: Tammi Rodriguez [facility]#: [id number] : 1975Acct:[id number] Age/Sex: 43 / FDate of Service: 03/24/18 Loc: ED Accession Number: [id number] Procedure: CT abdomen pelvis w con Ordering Provider: Denisha Ram P.A-C PROCEDURE: CT ABDOMEN PELVIS W CON INDICATIONS: epigastric and bilateral flank pain, vomiting TECHNIQUE: After the administration of intravenous contrast, 5 mm thick sections acquired from the diaphragm to the symphysis. 5 mm coronal and sagittal reformats were acquired. For radiation dose reduction, the following was used: automated exposure control, adjustment of mA and/or kV according to patient size. COMPARISON: None. FINDINGS: Image quality: Excellent. ABDOMEN: Lung bases: Lung bases are clear. Heart size is normal. Solid organs: Liver is normal in size and enhancement. Gallbladder is within normal limits. Biliary system is non dilated. Pancreas enhances normally. Spleen is normal in size and enhancement. No adrenal nodules. Kidneys demonstrate normal size and enhancement, without hydronephrosis. Peritoneum and bowel: A small hiatal hernia is present. The stomach is within normal limits. The proximal and mid small bowel is within normal limits. There is moderate distention and equalization of the terminal ileum. There is mild fat stranding surrounding the terminal ileum. Appendix is normal. The colon is nondistended and demonstrates no evidence of thickening. No free fluid or air. Nodes and vessels: No retroperitoneal or mesenteric adenopathy by size criteria. Mildly prominent mesenteric lymph nodes are present measuring less than 10 mm short axis. Aorta and inferior vena cava are normal in size. Miscellaneous: No ventral hernias. PELVIS: Genitourinary: Bladder wall thickness is normal. Miscellaneous: No inguinal hernias or adenopathy. Bones: No suspicious bony lesions. No vertebral body compression fractures. IMPRESSION: 1. Terminal ileitis. Differential considerations include infection, as well as inflammatory bowel disease. 2. Mildly prominent mesenteric lymph nodes, compatible with mesenteric adenitis/gastroenteritis. 3. Small hiatal hernia. Dictated by: Jasper Lomeli M.D. on 03/24/2018 at 12:48 Approved by: Jasper Lomeli M.D. on 03/24/2018 at 12:51 <Shay Vargas DO - Last Filed: 03/25/18 07:12> Lab Data Lab Results 03/24/18 03/24/18 03/24/18 Range/Units 11:42 11:42 11:42 WBC 11.1 H (4.5-11.0) X10^3/uL RBC 5.26 H (4.0-5.2) X10^6/uL Hgb 12.2 (12.0-16.0) g/dL Hct 38.3 (36-46) % MCV 72.9 L (80-100) fL MCH 23.2 L (26-34) PG MCHC 31.8 (30-36) % RDW 16.7 H (11.6-14.8) % Plt Count 306 (150-400) X10^3/uL Neut % (Auto) 83.7 H (50-75) % Lymph % (Auto) 12.1 L (25-40) % [place] % (Auto) 2.9 L (3-14) % Eos % (Auto) 0.5 L (2-4) % Baso % (Auto) 0.8 (0-2) % Neut # (Auto) 9300 H (2619-7373) /uL Lymph # (Auto) 1300 (3933-1111) /uL [place] # (Auto) 300 (0-900) /uL Eos # (Auto) 100 (0-450) /uL Baso # (Auto) 100 (0-100) /uL PT 11.8 (10.1-12.7) SECONDS INR 1.0 (0.9-1.3) APTT 28 (26.4-36.2) SECONDS Sodium 139 (137-145) mmol/L Potassium 4.1 (3.4-5.1) mmol/L Chloride 106 (98-107) mmol/L Carbon Dioxide 24 (22-32) mmol/L BUN 6 L (7-17) mg/dL Creatinine 0.70 (0.52-1.04) mg/dL Estimated GFR > 60.0 (>60) mL/min BUN/Creatinine Ratio 8.6 (6-22) Glucose 108 H (70-100) mg/dL Calcium 9.0 (8.4-10.2) mg/dL Total Bilirubin 0.4 (0.2-1.3) mg/dL AST 18 (14-36) IU/L ALT 28 (9-52) IU/L Alkaline Phosphatase 72 (38-126) U/L Total Protein 7.8 (6.3-8.2) g/dL Albumin 4.2 (3.5-5.0) g/dL Globulin 3.6 (1.7-4.1) g/dL Albumin/Globulin Ratio 1.2 (1.0-2.8) Lipase 70 (23-300) U/L Influenza A & B (PCR) (Negative) 03/24/18 03/25/18 Range/Units 12:00 05:53 WBC (4.5-11.0) X10^3/uL RBC (4.0-5.2) X10^6/uL Hgb (12.0-16.0) g/dL Hct (36-46) % MCV (80-100) fL MCH (26-34) PG MCHC (30-36) % RDW (11.6-14.8) % Plt Count (150-400) X10^3/uL Neut % (Auto) (50-75) % Lymph % (Auto) (25-40) % [place] % (Auto) (3-14) % Eos % (Auto) (2-4) % Baso % (Auto) (0-2) % Neut # (Auto) (7919-0469) /uL Lymph # (Auto) (2988-6944) /uL [place] # (Auto) (0-900) /uL Eos # (Auto) (0-450) /uL Baso # (Auto) (0-100) /uL PT (10.1-12.7) SECONDS INR (0.9-1.3) APTT (26.4-36.2) SECONDS Sodium (137-145) mmol/L Potassium (3.4-5.1) mmol/L Chloride (98-107) mmol/L Carbon Dioxide (22-32) mmol/L BUN (7-17) mg/dL Creatinine (0.52-1.04) mg/dL Estimated GFR (>60) mL/min BUN/Creatinine Ratio (6-22) Glucose (70-100) mg/dL Calcium (8.4-10.2) mg/dL Total Bilirubin (0.2-1.3) mg/dL AST (14-36) IU/L ALT (9-52) IU/L Alkaline Phosphatase (38-126) U/L Total Protein (6.3-8.2) g/dL Albumin (3.5-5.0) g/dL Globulin (1.7-4.1) g/dL Albumin/Globulin Ratio (1.0-2.8) Lipase 52 (23-300) U/L Influenza A & B (PCR) Negative (Negative) Point of care testing: Point of Care Testing Test Results Negative Urine Dip Bedside Urine Glucose Negative Bedside Urine Bilirubin - Negative Bedside Urine Ketone - Negative Urine Specific [place] 1.010 Bedside Urine Occult Blood - Negative Bedside Urine pH 6.0 Bedside Urine Protein - Negative Bedside Urine Urobilinogen - Negative Bedside Urine Nitrite - Negative Bedside Urine Leukocytes - Negative Esterase Discharge Plan Departure Patient Disposition: Admitted As Inpatient Clinical Impression: Terminal ileitis, Acute mesenteric adenitis Discharge Date/Time: 03/24/18 17:47 Interventions: ED Discharge Assessment Last Done: 03/24/18 17:43 Admit Date/Time: 03/24/18 16:36 Admit Provider: Jenelle Coon <Shay Vargas DO - Last Filed: 03/25/18 07:12> Cosign ED Attending Jessica Attestation: I was available for consultation during this patient's emergency department encounter
[2018-03-24 12:41] LABS: Influenza A and B by PCR Rapid Negative (Negative)
[2018-03-24] MEDS: KETOROLAC 60 MG/2 ML VIAL 30 MG IV (12:56)
[2018-03-24] MEDS: PANTOPRAZOLE 40 MG VIAL IV (12:57)
[2018-03-24] MEDS: HYDROMORPHONE 1 MG INJ 0.5 MG IV ×2 (12:58→14:35)
[2018-03-24] MEDS: DEXAMETHASONE 10 MG/ML VIAL IV (13:19)
[2018-03-24] MEDS: HYDROMORPHONE 1 MG INJ IV ×2 (16:31→20:54)
[2018-03-24] MEDS: PROCHLORPERAZINE 10 MG/2 ML VIAL 5 MG IV (16:35)
--- NOTE | 2018-03-24 17:07 | P.HP_ITS ---
History of Present Illness Date Patient Seen: 03/24/18 Chief complaint: States pain in both kidneys, abd pain, vomiting Narrative: This is a 43-year-old generally healthy female who presents with mesenteric adenitis and distal ileitis. She has had left flank pain for about 10 days, evaluated at a local urgent care and thought to be a kidney stone. She had not had imaging until today. For the last day she has had nausea vomiting chills. There has been no dysuria, hematuria or fevers. Over night she became quite tender and painful in the epigastric area. Eight months ago she had weiss endoscopy done for chronic dumping syndrome and was told that her distal ileum was too small to intubate but that a biopsy was done of that area and was negative. This was done in [place] as she recently moved from [place]. Back in April she had another left-sided kidney stone that she actually saw pass a few days after onset of the pain. She has had uterine surgery with a ruptured uterus at age 12 and then an emergency in her 20s. The CT scan shows diffuse mesenteric adenitis, no kidney stone, and a section of the distal ileum apparently inflamed and swollen. General surgery has been consulted and they will see her in the morning. She will be kept NPO and Dilaudid will be used for pain control. Patient History Medical History History of asthma (Chronic) History of kidney stones (Chronic) Nonsurgical dumping syndrome (Chronic) History of gastric ulcer (Resolved) Surgical History History of tonsillectomy and adenoidectomy (Resolved) History of uterine scar from previous surgery (Resolved) Status post (Resolved) Family History Mother Hypertension COPD (chronic obstructive pulmonary disease) Neuropathy Grandmother Cancer Grandfather Cancer Other Family history non-contributory Social History household members: none Smoking Status: Former smoker Family & Social History Family History Mother Hypertension COPD (chronic obstructive pulmonary disease) Neuropathy Grandmother Cancer Grandfather Cancer Other Family history non-contributory Safety & Behavioral: Feels Safe in Current Yes Environment Been Physically Hurt or No Threatened By a Person Tobacco & Substance use: Smoking Status Never smoker alcohol intake frequency 0-2 drinks per day Substance Use Type marijuana Meds Home Medications Medication Instructions Recorded Confirmed Type ipratropium bromide 17 1 puff INHALATION Q6H PRN 03/14/18 03/24/18 History mcg/actuation HFA aerosol inhaler tamsulosin 0.4 mg capsule 0.4 mg PO DAILY #30 cap 03/14/18 03/24/18 Rx tramadol 50 mg tablet 50 mg PO Q4-6H PRN #20 tab 03/14/18 03/24/18 Rx Allergies Allergy/AdvReac Type Severity Reaction Status Date / Time morphine Allergy Severe Vomiting Verified 03/24/18 11:21 Review of Systems Review of Systems Positive for abdominal pain, chills, nausea, vomiting. Negative for chest pain , shortness of breath, coughing, fever, dysuria, hematuria, diarrhea, bleeding, rash, seizures, headaches, new allergies, difficulty talking, difficulty walking. Exam Vital Signs (past 8 hours): - 03/24/18 11:17 03/24/18 12:14 03/24/18 13:00 Temperature 98.6 F Pulse Rate 120 H 88 75 Respiratory Rate 20 12 18 Blood Pressure 158/108 H Blood Pressure [Left Arm] 150/74 H 152/76 H Pulse Oximetry 97 98 94 03/24/18 13:30 03/24/18 14:00 03/24/18 14:30 Temperature Pulse Rate 62 63 70 Respiratory Rate 18 17 Blood Pressure Blood Pressure [Left Arm] 156/90 H 145/77 H 124/74 Pulse Oximetry 96 97 91 03/24/18 16:28 Temperature Pulse Rate 81 Respiratory Rate 18 Blood Pressure Blood Pressure [Left Arm] 133/82 Pulse Oximetry 97 Oxygen Delivery Method Room Air Narrative Exam Narrative: Alert and oriented x3 she is in moderate distress from abdominal pain. Pupils are equally round and reactive to light and accommodation. Extraocular muscles are intact. Sclerae are pink and nonicteric. Throat looks normal. No lymph nodes are felt head, neck, supraclavicular area. There is no thyromegaly. JVD is less 6 cm. No carotid bruits are heard. Heart is regular rate and rhythm without murmur. Lungs clear to auscultation bilaterally. Abdomen is tender in the left upper quadrant and epigastric area. Nontender elsewhere. Bowel sounds are positive, abdomen is soft. Extremities no ankle edema. Neuro exam. Cranial nerves 2-12 test intact. Motor function 5/5 throughout. Deep tendon reflexes are normal. Gait and balance are normal. Skin no rash or jaundice. Objective Labs Result Diagrams: 03/24/18 11:42 03/24/18 11:42 Labs: Laboratory Results - last 24 hr 03/24/18 03/24/18 03/24/18 11:42 11:42 11:42 WBC 11.1 H RBC 5.26 H Hgb 12.2 Hct 38.3 MCV 72.9 L MCH 23.2 L MCHC 31.8 RDW 16.7 H Plt Count 306 Neut % (Auto) 83.7 H Lymph % (Auto) 12.1 L [place] % (Auto) 2.9 L Eos % (Auto) 0.5 L Baso % (Auto) 0.8 Neut # (Auto) 9300 H Lymph # (Auto) 1300 [place] # (Auto) 300 Eos # (Auto) 100 Baso # (Auto) 100 PT 11.8 INR 1.0 APTT 28 Sodium 139 Potassium 4.1 Chloride 106 Carbon Dioxide 24 BUN 6 L Creatinine 0.70 Estimated GFR > 60.0 BUN/Creatinine Ratio 8.6 Glucose 108 H Calcium 9.0 Total Bilirubin 0.4 AST 18 ALT 28 Alkaline Phosphatase 72 Total Protein 7.8 Albumin 4.2 Globulin 3.6 Albumin/Globulin Ratio 1.2 Lipase 70 Influenza A & B (PCR) 03/24/18 12:00 WBC RBC Hgb Hct MCV MCH MCHC RDW Plt Count Neut % (Auto) Lymph % (Auto) [place] % (Auto) Eos % (Auto) Baso % (Auto) Neut # (Auto) Lymph # (Auto) [place] # (Auto) Eos # (Auto) Baso # (Auto) PT INR APTT Sodium Potassium Chloride Carbon Dioxide BUN Creatinine Estimated GFR BUN/Creatinine Ratio Glucose Calcium Total Bilirubin AST ALT Alkaline Phosphatase Total Protein Albumin Globulin Albumin/Globulin Ratio Lipase Influenza A & B (PCR) Negative Assessment & Plan (1) Terminal ileitis: Problem details: Bowel rest. General surgery consultation. Dr. Horan has been consulted. Dilaudid IV for pain. Qualifiers: Digestive disease complication type: unspecified complication Qualified Code(s): K50.019 - Crohn's disease of small intestine with unspecified complications Current visit: Yes Status: Acute (2) Acute mesenteric adenitis: Problem details: Bowel rest and IV fluid support along with pain control. Current visit: Yes Status: Acute (3) History of kidney stones: Current visit: Yes Status: Acute
[2018-03-24] MEDS: SODIUM CHLORIDE 0.9% 1,000 ML 150 ML IV (18:11)
[2018-03-24] MEDS: KETOROLAC 30 MG/ML VIAL IV (18:16)
--- NOTE | 2018-03-24 19:32 | PC.NURSE ---
Admit note: Tammi admitted to rm 205, goes by Contreras. Reports good pain relief from med given previously, did say it's starting to come back a little. Instructed her to call nurse if pain increases & needs medication. Denies any nausea. VS stable, visiting with family at bedside.
[2018-03-25] VITALS (8 sets, daily range): BP systolic 128–145; BP diastolic 74–90; PULSE 53–74; RESP 15–18; TEMP 36.4–36.9; O2SAT 96–100
[2018-03-25] MEDS: KETOROLAC 30 MG/ML VIAL IV ×4 (00:29→18:51)
[2018-03-25] MEDS: SODIUM CHLORIDE 0.9% 1,000 ML 150 ML IV ×4 (00:31→20:06)
[2018-03-25] MEDS: ONDANSETRON 4 MG/2 ML INJ IV ×4 (01:30→21:28)
[2018-03-25] MEDS: HYDROMORPHONE 1 MG INJ IV ×5 (01:31→20:06)
[2018-03-25] MEDS: PANTOPRAZOLE 40 MG VIAL IV (03:27)
--- NOTE | 2018-03-25 05:41 | PC.NURSE ---
educational therapist- Pt c/o nausea and 7/10 pain in head and abdomen. Pt given zofran and dilaudid with good relief. Pt awoke 2 hours later dry heaving and complaining of nause. BOBBI Dawson notified and new orders were made. Administered IV protonix with good relief. Will continue to monitor for needs and safety.
[2018-03-25 06:30] LABS: Lipase 52 U/L (23-300)
--- NOTE | 2018-03-25 06:38 | P.PN_ITS ---
Subjective Date Patient Seen: 03/25/18 Interval history: Tammi Rodriguez is a 43-year-old female with a past medical history significant for asthma, peptic ulcer disease, and nephrolithiasis who presented for abdominal pain and left flank pain for 10 days. The patient is resting in bed comfortably. She reports intermittent nausea relieved with Zofran. 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 She has also had an extensive workup for inflammatory bowel disease which has been inconclusive in [place], [place]. She endorses intermittent hematochezia. She has been dealing with these GI issues the entirety of her adult life for which she is quite emotional due to frustration. She denies headache, sore throat, cough, shortness of breath, chest pain, fever, chills, dysuria, or constipation. She has had mild diarrhea the last several days prior to admission. She is voiding without difficulty. She is up ambulating without assistance. Exam Vital Signs (past 8 hours): - 03/24/18 22:52 03/24/18 23:00 03/24/18 23:30 Temperature 98.0 F 97.9 F Pulse Rate 77 61 Respiratory Rate 19 16 Blood Pressure 125/79 142/80 H Pulse Oximetry 95 95 96 03/25/18 03:10 Temperature 97.6 F Pulse Rate 54 L Respiratory Rate 16 Blood Pressure 139/77 Pulse Oximetry 97 Oxygen Delivery Method Room Air Narrative Exam Narrative: General: Middle-aged female sitting in bed and in no acute distress, well- developed, well-nourished, appropriately interactive HEENT: Normocephalic, atraumatic. External ears without defect. Pupils equal, round, and reactive to light and accommodation. Anicteric sclerae, moist conjunctivae, and no lid lag. Oropharynx free of erythema and cobble stoning with moist mucosa. Neck: Supple with full range of motion. No lymphadenopathy or thyromegaly. Cardiovascular: Regular rate and rhythm without murmurs, rubs, or gallops appreciated. Pulmonary: Clear to auscultation bilaterally without crackles, wheezes, or rhonchi. Normal respiratory effort with no use of accessory muscles. Abdomen: Soft, bowel sounds present, nondistended, moderate tenderness to palpation in mid abdomen and right lower quadrant. No rebound. No hepatosplenomegaly or masses appreciated. Extremities: No clubbing, cyanosis, or edema.Skin: Normal temperature, turgor, and texture; no rash, ulcers, or subcutaneous nodules appreciated. Neurological: Cranial nerves grossly intact. Normal muscle strength, tone, and bulk. Reflexes, coordination, and sensory function within normal limits. No known gait impairment. Psychiatric: Normal mood and affect. Alert and oriented to person, place, and time. Objective Labs Result Diagrams: 03/24/18 11:42 03/24/18 11:42 Labs: Laboratory Results - last 24 hr 03/24/18 03/24/18 03/24/18 11:42 11:42 11:42 WBC 11.1 H RBC 5.26 H Hgb 12.2 Hct 38.3 MCV 72.9 L MCH 23.2 L MCHC 31.8 RDW 16.7 H Plt Count 306 Neut % (Auto) 83.7 H Lymph % (Auto) 12.1 L [place] % (Auto) 2.9 L Eos % (Auto) 0.5 L Baso % (Auto) 0.8 Neut # (Auto) 9300 H Lymph # (Auto) 1300 [place] # (Auto) 300 Eos # (Auto) 100 Baso # (Auto) 100 PT 11.8 INR 1.0 APTT 28 Sodium 139 Potassium 4.1 Chloride 106 Carbon Dioxide 24 BUN 6 L Creatinine 0.70 Estimated GFR > 60.0 BUN/Creatinine Ratio 8.6 Glucose 108 H Calcium 9.0 Total Bilirubin 0.4 AST 18 ALT 28 Alkaline Phosphatase 72 Total Protein 7.8 Albumin 4.2 Globulin 3.6 Albumin/Globulin Ratio 1.2 Lipase 70 Influenza A & B (PCR) 03/24/18 03/25/18 12:00 05:53 WBC RBC Hgb Hct MCV MCH MCHC RDW Plt Count Neut % (Auto) Lymph % (Auto) [place] % (Auto) Eos % (Auto) Baso % (Auto) Neut # (Auto) Lymph # (Auto) [place] # (Auto) Eos # (Auto) Baso # (Auto) PT INR APTT Sodium Potassium Chloride Carbon Dioxide BUN Creatinine Estimated GFR BUN/Creatinine Ratio Glucose Calcium Total Bilirubin AST ALT Alkaline Phosphatase Total Protein Albumin Globulin Albumin/Globulin Ratio Lipase 52 Influenza A & B (PCR) Negative Assessment & Plan Plan: Assessment/Plan Narrative: Tammi Rodriguez is a 43-year-old female with a past medical history significant for asthma, peptic ulcer disease, and nephrolithiasis who presented for abdominal pain and left flank pain for 10 days. 1. Acute terminal ileitis with mesenteric adenitis, present on admission. Active. -Patient presented with abdominal pain and left flank pain with associated vomiting x 10 days. History of rectal fistula, gastroparesis or ?slow emptying? , gastric and colonic ulcers, and intermittent hematochezia. Of note, the patient does not have dumping syndrome and more likely has gastroparesis as she explained her stomach is slow to empty and she often vomits food from the day before. -Differential diagnosis includes probable inflammatory bowel disease i.e. Crohn' s disease versus less likely infectious in etiology. -CT abdomen and pelvis with contrast demonstrated terminal ileitis with mild prominent mesenteric lymph nodes. -Ordered GI panel, pending. -Patient is NPO for bowel rest. -Continue IV fluids with NS at 150 mL/hr. -Ordered Dilaudid 1 mg every 3 hr as needed for pain and Zofran 4 mg every 6 hr as needed for nausea. -Continue Protonix 40 mg daily. -Will likely start glucocorticoids for probable Crohn's disease once infectious etiology has been ruled out. -General surgery has been consulted. We appreciate their time and recommendations. 2. Asthma, present on admission. Stable. -Will continue home inhaler as needed. 3. History of nephrolithiasis. -No recurrent kidney stones per CT. Disposition: Likely to discharge in 1-2 days depending upon improvement in abdominal pain and workup for Crohn's disease. Quality VTE Deep Vein Thrombosis/Pulmonary Embolism Present on Admission: No
[2018-03-25 08:10] LABS: Procalcitonin < 0.05 ng/mL (<0.5)
--- NOTE | 2018-03-25 09:03 | CM.DANOTE ---
DCP: Case received, EMR reviewed and met with patient. Introduced self and role. DCP template completed with information currently available. Patient is a 43 year old female who admitted yesterday afternoon to the care of the hospitalist team. PCP: None as of yet. Has new insurance, and will be looking into providers. Payer: confirmed: [place]/Medicaid. Patient came to hospital via family vehicle due to flank and epigastric pain. Has history of kidney stones. Patient holds diagnosis of Terminal Ileitis, and history of Chrohns Disease. Will be having surgical consult today. Met briefly with patient in room. Pleasant, alert and oriented, spouse with her in room. She is independent, lives in [place] with spouse, and is employed at [employer]. When this pillowcase maker asked her about having a provider, she stated, she is in the process of finding one, since she has new insurance. She also stated, she has been busy at her job, she works about 10 hours P: DCP to continue to follow. To be determined if she will be having surgery, but should be able to return home when she is medically stable. Yessy Green RN/Worship Leader
[2018-03-25] MEDS: ENOXAPARIN 40 MG/0.4 ML SYRINGE SUBCUT (09:23)
--- NOTE | 2018-03-25 09:52 | PC.NURSE ---
Addendum entered by Sarath Beck R.N. 03/25/18 13:40: Pt restful. continues attentive at bedside. Breann Horan and Marylou spoke with Pt and about plan for today and tomorrow. Zofran changed per Dr Tom order. Diluadid Ketoralac and Zofran of good effect. Original Note: Alert and oriented offers no overt complaint at present though is concerned about pain and nausea meds. discussed both with Pt. Medicated as ordered. Pt resting on bed, attentive at bedside. Pain meds of help. Pt presently watching tv.
--- NOTE | 2018-03-25 11:18 | PM.HP.1 ---
History of Present Illness Date Patient Seen: 03/25/18 Time Patient Seen: 11:18 Chief complaint: States pain in both kidneys, abd pain, vomiting Narrative: Tammi is a very pleasant and understandably frustrated 43-year-old lady who presented to our emergency room with left-sided abdominal pain and flank pain. She reports that she was seen at an urgent care and was referred to the emergency room. It was felt at that time that she might be passing a kidney stone. She does have a history of kidney stones and has passed several in the past. He she reports that she has had a lifetime of abdominal pain. Her symptoms have been waxing and waning and she does not recall a time during her dull life that she was in dealing with it. 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 She says she had upper and lower studies and a biopsy of the ileum that was not revealing. She does state that the GI physician doing her endoscopy remarked that her ileum was too swollen to get a look at. She has been having nausea and dry heaving. She is complaining of fairly severe bilateral abdominal pain. CT scan done in our emergency room revealed distal ileitis and she has been admitted to the medicine service for treatment. I have been consulted regarding these findings on CT. In addition to distal ileitis she also has findings consistent with mesenteric adenitis. She does not recall ever having had an upper GI and small-bowel follow-through. She has never been treated with steroids or other immune modulating drugs. She reports that her doctor in [place] did remark that she may have inflammatory bowel disease but her studies to this point have been inconclusive. At this time and she reports that she has extremely uncomfortable. She has passed small amounts of flatus but nothing today. She is not hungry. She reports that everything she eats even on her best day generally makes her feel badly. Patient History Medical History History of asthma (Chronic) History of kidney stones (Chronic) Nonsurgical dumping syndrome (Chronic) History of gastric ulcer (Resolved) Surgical History History of tonsillectomy and adenoidectomy (Resolved) History of uterine scar from previous surgery (Resolved) Status post (Resolved) Family History Mother Hypertension COPD (chronic obstructive pulmonary disease) Neuropathy Grandmother Cancer Grandfather Cancer Other Family history non-contributory Social History household members: spouse and none Smoking Status: Former smoker Family & Social History Family History Mother Hypertension COPD (chronic obstructive pulmonary disease) Neuropathy Grandmother Cancer Grandfather Cancer Other Family history non-contributory Social History: household members spouse,none Prior Living Arrangements House Safety & Behavioral: Feels Safe in Current Yes Environment Been Physically Hurt or No Threatened By a Person Suicidal Ideation Description None Suicide Plan Description No Plan Tobacco & Substance use: Smoking Status Former smoker alcohol intake frequency 0-2 drinks per day Substance Use Type marijuana Meds Home Medications Medication Instructions Recorded Confirmed Type ipratropium bromide 17 1 puff INHALATION Q6H PRN 03/14/18 03/24/18 History mcg/actuation HFA aerosol inhaler tamsulosin 0.4 mg capsule 0.4 mg PO DAILY #30 cap 03/14/18 03/24/18 Rx tramadol 50 mg tablet 50 mg PO Q4-6H PRN #20 tab 03/14/18 03/24/18 Rx Allergies Allergy/AdvReac Type Severity Reaction Status Date / Time morphine Allergy Severe Vomiting Verified 03/24/18 11:21 Review of Systems Review of Systems Tammi denies any fever. She denies any sick contacts. She does remark that she frequently has blood in her stool and has many many years. 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 She does report some pain from her known anal fistula but says it is not severe. Exam Vital Signs (past 8 hours): - 03/25/18 08:11 03/25/18 10:34 Temperature 98.3 F Pulse Rate 59 L Respiratory Rate 16 Blood Pressure 128/76 Pulse Oximetry 96 96 Oxygen Delivery Method Room Air Oxygen Flow Rate 0 Narrative Exam Narrative: Very pleasant lady who is in some obvious dimensional distress. She is accompanied by a very supportive HEENT: Normocephalic and atraumatic, pupils are equal round reactive to light accommodation. Her sclera are notably anicteric Lungs: Clear bilaterally Heart: Regular rate and rhythm Abdomen: Soft, she is quite tender to palpation in the epigastrium right lower quadrant and left lower quadrant. She has active bowel sounds. No true rebound but definitely voluntary guarding. No abdominal masses appreciated. Extremities: Warm and well perfused. Objective Labs Result Diagrams: 03/26/18 06:38 03/26/18 06:38 Labs: Laboratory Results - last 24 hr 03/24/18 03/24/18 03/24/18 11:42 11:42 11:42 WBC 11.1 H RBC 5.26 H Hgb 12.2 Hct 38.3 MCV 72.9 L MCH 23.2 L MCHC 31.8 RDW 16.7 H Plt Count 306 Neut % (Auto) 83.7 H Lymph % (Auto) 12.1 L [place] % (Auto) 2.9 L Eos % (Auto) 0.5 L Baso % (Auto) 0.8 Neut # (Auto) 9300 H Lymph # (Auto) 1300 [place] # (Auto) 300 Eos # (Auto) 100 Baso # (Auto) 100 PT 11.8 INR 1.0 APTT 28 Sodium 139 Potassium 4.1 Chloride 106 Carbon Dioxide 24 BUN 6 L Creatinine 0.70 Estimated GFR > 60.0 BUN/Creatinine Ratio 8.6 Glucose 108 H Calcium 9.0 Total Bilirubin 0.4 AST 18 ALT 28 Alkaline Phosphatase 72 Total Protein 7.8 Albumin 4.2 Globulin 3.6 Albumin/Globulin Ratio 1.2 Lipase 70 Procalcitonin Influenza A & B (PCR) 03/24/18 03/25/18 03/25/18 12:00 05:53 05:53 WBC RBC Hgb Hct MCV MCH MCHC RDW Plt Count Neut % (Auto) Lymph % (Auto) [place] % (Auto) Eos % (Auto) Baso % (Auto) Neut # (Auto) Lymph # (Auto) [place] # (Auto) Eos # (Auto) Baso # (Auto) PT INR APTT Sodium Potassium Chloride Carbon Dioxide BUN Creatinine Estimated GFR BUN/Creatinine Ratio Glucose Calcium Total Bilirubin AST ALT Alkaline Phosphatase Total Protein Albumin Globulin Albumin/Globulin Ratio Lipase 52 Procalcitonin < 0.05 Influenza A & B (PCR) Negative [address] [address] [address] Scan Report Signed Patient: Tammi Rodriguez MR#: [id number] : 1975 Acct:[id number] Age/Sex: 43 / F Date of Service: 03/24/18 Loc: ED Accession Number: [id number] Procedure: CT abdomen pelvis w con Ordering Provider: Denisha Ram P.A-C PROCEDURE: CT ABDOMEN PELVIS W CON INDICATIONS: epigastric and bilateral flank pain, vomiting TECHNIQUE: After the administration of intravenous contrast, 5 mm thick sections acquired from the diaphragm to the symphysis. 5 mm coronal and sagittal reformats were acquired. For radiation dose reduction, the following was used: automated exposure control, adjustment of mA and/or kV according to patient size. COMPARISON: None. FINDINGS: Image quality: Excellent. ABDOMEN: Lung bases: Lung bases are clear. Heart size is normal. Solid organs: Liver is normal in size and enhancement. Gallbladder is within normal limits. Biliary system is non dilated. Pancreas enhances normally. Spleen is normal in size and enhancement. No adrenal nodules. Kidneys demonstrate normal size and enhancement, without hydronephrosis. Peritoneum and bowel: A small hiatal hernia is present. The stomach is within normal limits. The proximal and mid small bowel is within normal limits. There is moderate distention and equalization of the terminal ileum. There is mild fat stranding surrounding the terminal ileum. Appendix is normal. The colon is nondistended and demonstrates no evidence of thickening. No free fluid or air. Nodes and vessels: No retroperitoneal or mesenteric adenopathy by size criteria. Mildly prominent mesenteric lymph nodes are present measuring less than 10 mm short axis. Aorta and inferior vena cava are normal in size. Miscellaneous: No ventral hernias. PELVIS: Genitourinary: Bladder wall thickness is normal. Miscellaneous: No inguinal hernias or adenopathy. Bones: No suspicious bony lesions. No vertebral body compression fractures. IMPRESSION: 1. Terminal ileitis. Differential considerations include infection, as well as inflammatory bowel disease. 2. Mildly prominent mesenteric lymph nodes, compatible with mesenteric adenitis/gastroenteritis. 3. Small hiatal hernia. Dictated by: Jasper Lomeli M.D. on 03/24/2018 at 12:48 Approved by: Jasper Lomeli M.D. on 03/24/2018 at 12:51 Assessment & Plan Plan: Assessment/Plan Narrative: Very pleasant 43-year-old lady with a lifetime of abdominal pain waxing and waning symptoms. Certainly her story in her symptoms are consistent with inflammatory bowel disease and more specifically Crohn's disease. Her objective findings on CT would also support this diagnosis. As she has just had panendoscopy less than a year ago, I do not think it has much to offer. She has been diagnosed with the nonsurgical dumping syndrome but she says that she was told that her stomach does not empty appropriately. This would be more consistent with gastroparesis. Either of these symptoms could be consistent with symptoms of Crohn's dysfunction. I have recommended an upper GI and small-bowel follow-through to evaluate the small bowel and specifically the terminal ileum. As long as her nausea is controlled, we will be able to get that study and hopefully we again to focus in on the diagnosis. Ultimately, she will need referral to a local GI for definitive management. We will continue bowel rest for now. If her nausea did not improve, we will not be able to get our upper GI study and may need to consider a short course of steroids. I have also recommended ordering Salome new clear anti neutrophil cytoplasmic antibody and anti 2nd my sees antibody to help us with the diagnosis. C reactive protein or sedimentation rate could also be helpful. Quality VTE Deep Vein Thrombosis/Pulmonary Embolism Present on Admission: No
[2018-03-26] VITALS (10 sets, daily range): BP systolic 118–153; BP diastolic 60–93; PULSE 52–78; RESP 16–18; TEMP 36.4–36.8; O2SAT 94–97
[2018-03-26] MEDS: KETOROLAC 30 MG/ML VIAL IV ×3 (00:20→12:44)
[2018-03-26] MEDS: ONDANSETRON 4 MG/2 ML INJ IV ×3 (01:20→11:03)
[2018-03-26] MEDS: SODIUM CHLORIDE 0.9% 1,000 ML 150 ML IV (03:43)
[2018-03-26] MEDS: HYDROMORPHONE 1 MG INJ IV ×6 (06:36→23:08)
--- NOTE | 2018-03-26 06:36 | P.PN_ITS ---
Subjective Date Patient Seen: 03/26/18 Interval history: Tammi Rodriguez is a 43-year-old female with a past medical history significant for asthma, peptic ulcer disease, and nephrolithiasis who presented for abdominal pain and left flank pain for 10 days. The patient is resting in bed and appears mildly uncomfortable. She reports persistent nausea with increasing abdominal pain. She is tearful. She recently had some aphthous ulcers within her mouth. She denies headache, sore throat, cough, shortness of breath, chest pain, fever, chills, dysuria, or constipation. She is voiding without difficulty. She has not had a bowel movement since admission. She is up ambulating without assistance. Exam Vital Signs (past 8 hours): - 03/25/18 23:00 03/26/18 00:25 03/26/18 03:59 Temperature 98.0 F 98.0 F Pulse Rate 76 52 L Respiratory Rate 16 16 Blood Pressure 142/68 H 118/60 Pulse Oximetry 96 96 96 Oxygen Delivery Method Room Air Oxygen Flow Rate 0 Narrative Exam Narrative: General: Middle-aged female sitting in bed and in no acute distress, well- developed, well-nourished, appropriately interactive HEENT: Normocephalic, atraumatic. External ears without defect. Pupils equal, round, and reactive to light and accommodation. Anicteric sclerae, moist conjunctivae, and no lid lag. Oropharynx free of erythema and cobble stoning with moist mucosa. Neck: Supple with full range of motion. No lymphadenopathy or thyromegaly. Cardiovascular: Regular rate and rhythm without murmurs, rubs, or gallops appreciated. Pulmonary: Clear to auscultation bilaterally without crackles, wheezes, or rhonchi. Normal respiratory effort with no use of accessory muscles. Abdomen: Soft, bowel sounds present, nondistended, moderate tenderness to palpation in mid abdomen and right lower quadrant. No rebound. No hepatosplenomegaly or masses appreciated. Extremities: No clubbing, cyanosis, or edema.Skin: Normal temperature, turgor, and texture; no rash, ulcers, or subcutaneous nodules appreciated. Neurological: Cranial nerves grossly intact. Psychiatric: Normal mood and affect. Alert and oriented to person, place, and time. Objective Labs Result Diagrams: 03/26/18 06:38 03/26/18 06:38 Labs: Laboratory Results - last 24 hr 03/25/18 03/25/18 05:53 05:53 Lipase 52 Procalcitonin < 0.05 Assessment & Plan Plan: Assessment/Plan Narrative: Tammi Rodriguez is a 43-year-old female with a past medical history significant for asthma, peptic ulcer disease, and nephrolithiasis who presented for abdominal pain and left flank pain for 10 days. 1. Acute terminal ileitis with mesenteric adenitis, present on admission. Active. -Patient presented with abdominal pain and left flank pain with associated vomiting x 10 days. History of rectal fistula, gastroparesis or ?slow emptying? , gastric and colonic ulcers, and intermittent hematochezia. Of note, the patient does not have dumping syndrome and more likely has gastroparesis as she explained her stomach is slow to empty and she often vomits food from the day before. -Differential diagnosis includes probable inflammatory bowel disease i.e. Crohn' s disease versus less likely infectious in etiology. -CT abdomen and pelvis with contrast demonstrated terminal ileitis with mild prominent mesenteric lymph nodes. -Ordered GI panel, pending. -Patient is NPO for bowel rest. -Continue Protonix 40 mg daily. -Continue IV fluids with NS at 100 mL/hr. -Increased frequency of Dilaudid to 1 mg every 1 hr as needed for pain and Zofran 4 mg every 6 hr as needed for nausea. Added Ativan 0.5 mg IV t.i.d. as needed for nausea/vomiting. -General surgery has been consulted. We appreciate their time and recommendations. General surgery planning for small-bowel follow-through today , as well as, additional lab work to workup probable Crohn's disease including anti-saccharomyces antibody. In addition, ordered CRP for inflammatory marker and to have baseline to compare to in order to monitor therapeutic treatment. -Ordered Solu-Medrol 125 mg IV x1 for loading dose. Plan to start budesonide 9 mg every morning for 8 weeks with close GI follow-up once abdominal pain and inflammation are improving and she able to go home. 2. Asthma, present on admission. Stable. -Will continue home inhaler as needed. 3. History of nephrolithiasis. -No recurrent kidney stones per CT. Disposition: Likely to discharge in 1-2 days depending upon improvement in nausea/abdominal pain and workup and treatement for Crohn's disease. Quality VTE Deep Vein Thrombosis/Pulmonary Embolism Present on Admission: No
[2018-03-26 06:59] LABS: Add Manual Diff / Slide Review NO; Basophils Absolute Auto 100 /uL (0-100); Basophils Percent Auto 0.8 % (0-2); Eosinophils Absolute Auto 100 /uL (0-450); Eosinophils Percent Auto 1.5 % (2-4); Hematocrit 31.4 % (36-46); Hemoglobin 10.2 g/dL (12.0-16.0); Lymphocytes Absolute Auto 2300 /uL (1100-4500); Lymphocytes Percent Auto 33.9 % (25-40); Mean Corpuscular HGB Conc 32.4 % (30-36); Mean Corpuscular Hemoglobin 23.6 PG (26-34); Mean Corpuscular Volume 72.8 fL (80-100); Monocytes Absolute Auto 400 /uL (0-900); Neutrophils Absolute Auto 4000 /uL (1500-7000); Neutrophils Percent Auto 57.8 % (50-75); Platelet Count 222 X10^3/uL (150-400); Red Blood Cell Count 4.31 X10^6/uL (4.0-5.2); Red Cell Distribution Width 16.6 % (11.6-14.8); White Blood Cell Count 6.9 X10^3/uL (4.5-11.0)
--- NOTE | 2018-03-26 07:05 | PC.NURSE ---
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 Pt was having nausea throughout the night zofran x2 thsi shift with good relief, no emesis. Pt controlled with IV dilaudid. at bedside, participating in care.
[2018-03-26 07:08] LABS: Alanine Aminotransferase 26 IU/L (9-52); Albumin 3.2 g/dL (3.5-5.0); Albumin Globulin Ratio 1.1 (1.0-2.8); Alkaline Phosphatase 50 U/L (38-126); Aspartate Aminotransferase 12 IU/L (14-36); BUN Creatinine Ratio 11.4 (6-22); Bilirubin Total 0.3 mg/dL (0.2-1.3); Blood Urea Nitrogen 8 mg/dL (7-17); Calcium 7.8 mg/dL (8.4-10.2); Carbon Dioxide 23 mmol/L (22-32); Chloride 107 mmol/L (98-107); Estimated Glomerular Filt Rate > 60.0 mL/min (>60); Globulin 2.8 g/dL (1.7-4.1); Glucose 77 mg/dL (70-100); HEMOLYSIS < 15 (0-50); Magnesium 1.6 mg/dL (1.6-2.3); Potassium 3.6 mmol/L (3.4-5.1); Sodium 136 mmol/L (137-145)
[2018-03-26 07:09] LABS: C-Reactive Protein Quant < 0.5 mg/dL (<1.0)
[2018-03-26 07:54] LABS: Procalcitonin < 0.05 ng/mL (<0.5)
[2018-03-26] MEDS: PANTOPRAZOLE 40 MG VIAL IV (09:19)
[2018-03-26] MEDS: ENOXAPARIN 40 MG/0.4 ML SYRINGE SUBCUT (09:19)
[2018-03-26] MEDS: SODIUM CHLORIDE 0.9% 1,000 ML 100 ML IV (12:44)
[2018-03-26] MEDS: HYDROMORPHONE 2 MG INJ 1 MG IV (14:16)
[2018-03-26] MEDS: methylPREDNISolone 125 MG/2 ML VIAL IV (16:01)
[2018-03-26] MEDS: LORazepam 2 MG/ML SYRINGE 0.5 MG IV ×2 (16:41→23:05)
--- NOTE | 2018-03-26 20:09 | P.PN_ITS ---
Subjective Date Patient Seen: 03/26/18 Time Patient Seen: 16:06 Interval history: Andressa has been struggling a bit today. She reports that she has been nauseated and she thinks her pain is even worse than it was yesterday. She denies any vomiting but she definitely had dry heaves. Upper GI has not been completed but consideration has been given to placing an NG tube which mau would very much like to avoid. Exam Vital Signs (past 8 hours): - 03/26/18 14:42 03/26/18 17:26 03/26/18 17:30 Temperature 97.9 F Pulse Rate 60 72 Respiratory Rate 18 18 Blood Pressure 153/87 H 143/91 H Pulse Oximetry 95 94 94 03/26/18 19:27 Temperature 98.3 F Pulse Rate 68 Respiratory Rate 16 Blood Pressure 143/74 H Pulse Oximetry 97 Oxygen Delivery Method Room Air Oxygen Flow Rate 0 Narrative Exam Narrative: Abdomen: Soft but globally tender to palpation. Most tender in the right side of the abdomen today. Voluntary guarding. No true rebound. Hypoactive bowel tones. Objective Labs Result Diagrams: 03/26/18 06:38 03/26/18 06:38 Labs: Laboratory Results - last 24 hr 03/26/18 03/26/18 03/26/18 06:38 06:38 06:38 WBC 6.9 RBC 4.31 Hgb 10.2 L Hct 31.4 L MCV 72.8 L MCH 23.6 L MCHC 32.4 RDW 16.6 H Plt Count 222 Neut % (Auto) 57.8 D Lymph % (Auto) 33.9 D [place] % (Auto) 6.0 Eos % (Auto) 1.5 L Baso % (Auto) 0.8 Neut # (Auto) 4000 Lymph # (Auto) 2300 [place] # (Auto) 400 Eos # (Auto) 100 Baso # (Auto) 100 Sodium 136 L Potassium 3.6 Chloride 107 Carbon Dioxide 23 BUN 8 Creatinine 0.70 Estimated GFR > 60.0 BUN/Creatinine Ratio 11.4 Glucose 77 Calcium 7.8 L Magnesium 1.6 Total Bilirubin 0.3 AST 12 L ALT 26 Alkaline Phosphatase 50 C-Reactive Protein < 0.5 Total Protein 6.0 L Albumin 3.2 L Globulin 2.8 Albumin/Globulin Ratio 1.1 Procalcitonin < 0.05 Assessment & Plan Plan: Assessment/Plan Narrative: Labs are very reassuring regarding the possibility of acute infection or intra- abdominal catastrophe. Again, her pain and symptoms are most consistent with inflammatory bowel disease. Her nausea is prohibitive for getting an upper GI study and even for an upper endoscopy. I agree with Dr. coffman planned for steroids. She has written for 125 mg of Solu-Medrol and I would recommend 60 mg daily to follow that followed by a prednisone taper hopefully when symptoms resolved. As soon as the acute nausea and evidence of partial bowel obstruction resolves, we will get the upper GI study. For now, it is on hold. If the nausea does not resolve with steroids, we will have to place an NG tube and try to get the study. Quality VTE Deep Vein Thrombosis/Pulmonary Embolism Present on Admission: No
[2018-03-26 20:52] LABS: C-Reactive Protein Quant < 0.5 mg/dL (<1.0)
[2018-03-26 20:56] LABS: Erythrocyte Sedimentation Rate 14 MM/HR (0-20)
[2018-03-27] VITALS (7 sets, daily range): BP systolic 131–152; BP diastolic 68–92; PULSE 52–81; RESP 15–20; TEMP 36.6–36.8; O2SAT 92–100
--- NOTE | 2018-03-27 02:55 | PC.NURSE ---
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 Ativan was given during evening shift for nausea with good effect. in room, participating with care. Will continue to monitor for needs and safety.
[2018-03-27] MEDS: HYDROMORPHONE 1 MG INJ IV ×7 (04:19→23:20)
[2018-03-27] MEDS: SODIUM CHLORIDE 0.9% 1,000 ML 100 ML IV ×3 (04:19→18:44)
--- NOTE | 2018-03-27 06:19 | P.PN_ITS ---
Subjective Date Patient Seen: 03/27/18 Interval history: Tammi Rodriguez is a 43-year-old female with a past medical history significant for asthma, peptic ulcer disease, and nephrolithiasis who presented for abdominal pain and left flank pain for 10 days. The patient is resting in bed comfortably. She reports nausea and abdominal pain improving with ativan and dilaudid. She denies headache, sore throat, cough, shortness of breath, chest pain, fever, chills, dysuria, or constipation. She is voiding without difficulty. She has not had a bowel movement since admission. She is up ambulating without assistance. Plan to continue start budesonide, continue antinausea and pain medications as needed, and obtain small bowel follow-through when nausea is well controlled. Exam Vital Signs (past 8 hours): - 03/26/18 23:00 03/26/18 23:35 03/27/18 04:17 Temperature 98.1 F 98.2 F Pulse Rate 78 52 L Respiratory Rate 16 16 Blood Pressure 138/86 131/68 Pulse Oximetry 96 96 96 Oxygen Delivery Method Room Air Oxygen Flow Rate 0 Narrative Exam Narrative: General: Middle-aged female sitting in bed and in no acute distress, well- developed, well-nourished, appropriately interactive HEENT: Normocephalic, atraumatic. External ears without defect. Pupils equal, round, and reactive to light and accommodation. Anicteric sclerae, moist conjunctivae, and no lid lag. Oropharynx free of erythema and cobble stoning with moist mucosa. Neck: Supple with full range of motion. No lymphadenopathy or thyromegaly. Cardiovascular: Regular rate and rhythm without murmurs, rubs, or gallops appreciated. Pulmonary: Clear to auscultation bilaterally without crackles, wheezes, or rhonchi. Normal respiratory effort with no use of accessory muscles. Abdomen: Soft, bowel sounds present, nondistended, moderate tenderness to palpation in mid abdomen and right lower quadrant. No rebound. No hepatosplenomegaly or masses appreciated. Extremities: No clubbing, cyanosis, or edema.Skin: Normal temperature, turgor, and texture; no rash, ulcers, or subcutaneous nodules appreciated. Neurological: Cranial nerves grossly intact. Psychiatric: Normal mood and affect. Alert and oriented to person, place, and time. Objective Labs Result Diagrams: 03/27/18 06:21 03/27/18 06:21 Labs: Laboratory Results - last 24 hr 03/26/18 03/26/18 03/26/18 06:38 06:38 06:38 WBC 6.9 RBC 4.31 Hgb 10.2 L Hct 31.4 L MCV 72.8 L MCH 23.6 L MCHC 32.4 RDW 16.6 H Plt Count 222 Neut % (Auto) 57.8 D Lymph % (Auto) 33.9 D [place] % (Auto) 6.0 Eos % (Auto) 1.5 L Baso % (Auto) 0.8 Neut # (Auto) 4000 Lymph # (Auto) 2300 [place] # (Auto) 400 Eos # (Auto) 100 Baso # (Auto) 100 ESR Sodium 136 L Potassium 3.6 Chloride 107 Carbon Dioxide 23 BUN 8 Creatinine 0.70 Estimated GFR > 60.0 BUN/Creatinine Ratio 11.4 Glucose 77 Calcium 7.8 L Magnesium 1.6 Total Bilirubin 0.3 AST 12 L ALT 26 Alkaline Phosphatase 50 C-Reactive Protein < 0.5 Total Protein 6.0 L Albumin 3.2 L Globulin 2.8 Albumin/Globulin Ratio 1.1 Procalcitonin < 0.05 03/26/18 03/26/18 20:30 20:30 WBC RBC Hgb Hct MCV MCH MCHC RDW Plt Count Neut % (Auto) Lymph % (Auto) [place] % (Auto) Eos % (Auto) Baso % (Auto) Neut # (Auto) Lymph # (Auto) [place] # (Auto) Eos # (Auto) Baso # (Auto) ESR 14 Sodium Potassium Chloride Carbon Dioxide BUN Creatinine Estimated GFR BUN/Creatinine Ratio Glucose Calcium Magnesium Total Bilirubin AST ALT Alkaline Phosphatase C-Reactive Protein < 0.5 Total Protein Albumin Globulin Albumin/Globulin Ratio Procalcitonin Assessment & Plan Plan: Assessment/Plan Narrative: Tammi Rodriguez is a 43-year-old female with a past medical history significant for asthma, peptic ulcer disease, and nephrolithiasis who presented for abdominal pain and left flank pain for 10 days. 1. Acute terminal ileitis with mesenteric adenitis, present on admission. Active. -Patient presented with abdominal pain and left flank pain with associated vomiting x 10 days. History of rectal fistula, gastroparesis or ?slow emptying? , gastric and colonic ulcers, and intermittent hematochezia. Of note, the patient does not have dumping syndrome and more likely has gastroparesis as she explained her stomach is slow to empty and she often vomits food from the day before. -Differential diagnosis includes probable inflammatory bowel disease i.e. Crohn' s disease versus less likely infectious in etiology. GI panel ordered but not collected as patient has not had BM. -CT abdomen and pelvis with contrast demonstrated terminal ileitis with mild prominent mesenteric lymph nodes. -Patient is NPO for bowel rest. -Continue Protonix 40 mg daily. -Continue IV fluids with NS at 100 mL/hr. -Increased frequency of Dilaudid to 1 mg every 1 hr as needed for pain and Zofran 4 mg every 6 hr as needed for nausea. Added Ativan 0.5 mg IV t.i.d. as needed for nausea/vomiting. -General surgery has been consulted. We appreciate their time and recommendations. General surgery plans for small-bowel follow-through once nausea has resolved and she can tolerate oral contrast. Additional lab work has been ordered to workup probable Crohn's disease including anti-saccharomyces antibody. CRP was ordered for inflammatory marker and to have baseline to compare to in order to monitor therapeutic treatment which was normal. -Received Solu-Medrol 125 mg IV x1 for loading dose. Plan to start budesonide 9 mg every morning for 8 weeks with close GI follow-up once abdominal pain, nausea and inflammation are improving and she able to go home. 2. Asthma, present on admission. Stable. -Will continue home inhaler as needed. 3. History of nephrolithiasis. -No recurrent kidney stones per CT. Disposition: Likely to discharge in 1-2 days depending upon improvement in nausea/abdominal pain and workup and treatement for Crohn's disease. Quality VTE Deep Vein Thrombosis/Pulmonary Embolism Present on Admission: No
[2018-03-27 06:36] LABS: Add Manual Diff / Slide Review NO; Basophils Absolute Auto 0 /uL (0-100); Basophils Percent Auto 0.2 % (0-2); Eosinophils Absolute Auto 0 /uL (0-450); Hematocrit 33.9 % (36-46); Lymphocytes Absolute Auto 700 /uL (1100-4500); Lymphocytes Percent Auto 9.2 % (25-40); Mean Corpuscular HGB Conc 32.3 % (30-36); Mean Corpuscular Hemoglobin 23.3 PG (26-34); Mean Corpuscular Volume 72.1 fL (80-100); Monocytes Absolute Auto 200 /uL (0-900); Monocytes Percent Auto 2.2 % (3-14); Neutrophils Absolute Auto 7100 /uL (1500-7000); Neutrophils Percent Auto 88.4 % (50-75); Platelet Count 254 X10^3/uL (150-400); Red Blood Cell Count 4.71 X10^6/uL (4.0-5.2); Red Cell Distribution Width 16.2 % (11.6-14.8); White Blood Cell Count 8.1 X10^3/uL (4.5-11.0)
[2018-03-27 06:42] LABS: BUN Creatinine Ratio 11.7 (6-22); Blood Urea Nitrogen 7 mg/dL (7-17); Calcium 8.6 mg/dL (8.4-10.2); Carbon Dioxide 24 mmol/L (22-32); Chloride 103 mmol/L (98-107); Estimated Glomerular Filt Rate > 60.0 mL/min (>60); Glucose 100 mg/dL (70-100); HEMOLYSIS < 15 (0-50); Potassium 4.2 mmol/L (3.4-5.1); Sodium 136 mmol/L (137-145)
[2018-03-27] MEDS: LORazepam 2 MG/ML SYRINGE 0.5 MG IV ×2 (07:24→12:50)
[2018-03-27] MEDS: PANTOPRAZOLE 40 MG VIAL IV (09:18)
[2018-03-27] MEDS: ENOXAPARIN 40 MG/0.4 ML SYRINGE SUBCUT (09:18)
[2018-03-27] MEDS: BUDESONIDE 3 MG CAP 9 MG PO (09:21)
--- NOTE | 2018-03-27 09:47 | PM.PN.1 ---
Subjective Date Patient Seen: 03/27/18 Time Patient Seen: 09:47 Interval history: Patient reports she woke up feeling better today and then ate some broth and starting with abdominal pain and cramping again. Even so, she is brighter today and feels more optimistic. Still not passing any flatus but the nausea has improved significantly. Exam Vital Signs (past 8 hours): - 03/27/18 04:17 03/27/18 07:20 03/27/18 07:25 Temperature 98.2 F 97.8 F Pulse Rate 52 L 63 Respiratory Rate 16 20 Blood Pressure 131/68 145/79 H Pulse Oximetry 96 99 99 Oxygen Delivery Method Room Air Oxygen Flow Rate 0 Narrative Exam Narrative: Abdomen is soft and much less tender to palpation than on prior exams. Active bowel sounds. 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 No peritoneal sounds. Objective Labs Result Diagrams: 03/27/18 06:21 03/27/18 06:21 Labs: Laboratory Results - last 24 hr 03/26/18 03/26/18 03/27/18 20:30 20:30 06:21 WBC 8.1 RBC 4.71 Hgb 11.0 L Hct 33.9 L MCV 72.1 L MCH 23.3 L MCHC 32.3 RDW 16.2 H Plt Count 254 Neut % (Auto) 88.4 H D Lymph % (Auto) 9.2 L D [place] % (Auto) 2.2 L Eos % (Auto) 0.0 L Baso % (Auto) 0.2 Neut # (Auto) 7100 H Lymph # (Auto) 700 L [place] # (Auto) 200 Eos # (Auto) 0 Baso # (Auto) 0 ESR 14 Sodium Potassium Chloride Carbon Dioxide BUN Creatinine Estimated GFR BUN/Creatinine Ratio Glucose Calcium C-Reactive Protein < 0.5 03/27/18 06:21 WBC RBC Hgb Hct MCV MCH MCHC RDW Plt Count Neut % (Auto) Lymph % (Auto) [place] % (Auto) Eos % (Auto) Baso % (Auto) Neut # (Auto) Lymph # (Auto) [place] # (Auto) Eos # (Auto) Baso # (Auto) ESR Sodium 136 L Potassium 4.2 Chloride 103 Carbon Dioxide 24 BUN 7 Creatinine 0.60 Estimated GFR > 60.0 BUN/Creatinine Ratio 11.7 Glucose 100 Calcium 8.6 C-Reactive Protein Assessment & Plan Plan: Assessment/Plan Narrative: 43-year-old lady with a long history of abdominal pain and symptoms. We will continue the steroids for now. As soon as we see some evidence of bowel function returned, we will obtain an upper GI and small-bowel follow-through and changed to oral steroids. Quality VTE Deep Vein Thrombosis/Pulmonary Embolism Present on Admission: No
--- NOTE | 2018-03-27 10:07 | PC.NURSE ---
Day Shift-Pt A&OX4, uses call light appropriately. Indep in room to BR. Voiding qs. IVF infusing well to left FA PIV. Mild to moderate nausea this AM, Ativan IV prn given with good effect, pt states works better than PRN IV zofran which only lasts 2-3 hours before feeling nauseated again. PRN IV Dilaudid given at 0725 and 1022 for 8/10 pain, to LUQ abd radiating to left flank and back. Upon reassessment, pain decreased to 4/10. Pt's diet increased from NPO tp clear liquids. Reminded to go slow, small intermittent sips. Pt given chicken broth, drank half went to the BR and vomited into garbage can. After pt given orange jello and gingerale. Pt stated that she would have sánchez abdiaziz every morning at home to help settle her stomach. Pt moderately nauseated, PRN IV zofran given at 1016. Will continue to monitor.
[2018-03-27] MEDS: ONDANSETRON 4 MG/2 ML INJ IV ×3 (10:16→22:38)
--- NOTE | 2018-03-27 15:40 | CM.DPNOTE ---
DCP: continued: Case discussed in Team Rounds. Dr. Horan is consulting. Pt continues to have problems with clear liquids are introduces. Dr. Horan saw pt this morning and states that when bowel function starts to return a small bowl follow through and upper GI will be done and then a change to oral steroids. RN notes show that pt is up and independent in her room P: DCP team to continue to follow.
[2018-03-28] VITALS (11 sets, daily range): BP systolic 129–173; BP diastolic 81–101; PULSE 59–74; RESP 16–19; TEMP 36.4–36.8; O2SAT 94–98
--- NOTE | 2018-03-28 | DI.RAD.S_ITS ---
PROCEDURE: [place] SMALL BOWEL FOLLOW THROUGH INDICATIONS: Terminal ileitis COMPARISON: [facility], CT, CT ABDOMEN PELVIS W CON, 03/24/2018, 12:21. FINDINGS: KUB: No acute disease. Small bowel: There is a relatively reduced transit time of barium through the small bowel. Small bowel loops are of normal caliber throughout until the terminal ileum is approached where mild mural thickening can be seen with both longitudinal and transverse mural thickening along the mucosal surfaces. Mucosal folds are smooth and of normal thickness more superiorly. No strictures, intraluminal masses, or extrinsic mass effects are noted. IMPRESSION: There is evidence of underlying inflammatory bowel disease involving the terminal ileum, most likely Crohn's disease, due to the presence of fibrofatty proliferation seen on CT and this small bowel follow-through examination, small bowel loops from the terminal ileum. Additionally there is abnormal mucosal fold thickening involving the terminal ileum and relative narrowing of the small bowel caliber in this area. Small bowel distention proximal to the area of abnormality is not found. No fistula formation is identified. The plain film findings correlate well with the CT finding from 03/24/18 of abnormal inflammation involving the terminal ileum. The patient reports anal fistula in addition to chronic bowel disease symptoms. Dictated by: Samir Walden M.D. on 03/28/2018 at 14:15 Approved by: Samir Walden M.D. on 03/28/2018 at 14:20
[2018-03-28] MEDS: LORazepam 2 MG/ML SYRINGE 0.5 MG IV ×3 (00:31→20:27)
[2018-03-28] MEDS: ONDANSETRON 4 MG/2 ML INJ IV (07:43)
--- NOTE | 2018-03-28 07:51 | P.PN_ITS ---
Subjective Date Patient Seen: 03/28/18 Interval history: Tammi Rodriguez is a 43-year-old female with a past medical history significant for asthma, peptic ulcer disease, and nephrolithiasis who presented for abdom inal pain and left flank pain for 10 days. The patient is resting in bed comfortably. She continues to have intermittent nausea and abdominal pain that is improving overall and controlled with with ativan and dilaudid, respectively. She endorses mild headache. She denies sore throat, cough, shortness of breath, chest pain, fever, chills, dysuria, or constipation. She is voiding without difficulty. She has not had a bowel movement since admission. She is passing flatus. She is up ambulating without assistance. Plan is to continue budesonide, continue antiemetics and pain medications as needed, and obtain small bowel follow-through likely today. Exam Vital Signs (past 8 hours): - 03/28/18 00:00 03/28/18 01:39 03/28/18 03:15 Temperature 98.1 F 97.8 F Pulse Rate 59 L 72 Respiratory Rate 18 19 Blood Pressure 164/93 H 152/88 H Pulse Oximetry 98 98 97 Oxygen Delivery Method Room Air Oxygen Flow Rate 0 Narrative Exam Narrative: General: Middle-aged female sitting in bed and in no acute distress, well- developed, well-nourished, appropriately interactive HEENT: Normocephalic, atraumatic. External ears without defect. Pupils equal, round, and reactive to light and accommodation. Anicteric sclerae, moist conjunctivae, and no lid lag. Neck: Supple with full range of motion. No lymphadenopathy or thyromegaly. Cardiovascular: Regular rate and rhythm without murmurs, rubs, or gallops appreciated. Pulmonary: Clear to auscultation bilaterally without crackles, wheezes, or rhonchi. Normal respiratory effort with no use of accessory muscles. Abdomen: Soft, bowel sounds present, non-distended, mild tenderness to palpation in mid abdomen and right lower quadrant that is improving. No rebound. No hepatosplenomegaly or masses appreciated. Extremities: No clubbing, cyanosis, or edema. Skin: Normal temperature, turgor, and texture; no rash, ulcers, or subcutaneous nodules appreciated. Neurological: Cranial nerves grossly intact. Psychiatric: Normal mood and affect. Alert and oriented to person, place, and time. Tammi Rodriguez is a 43-year-old female with a past medical history significant for asthma, peptic ulcer disease, and nephrolithiasis who presented for abdomin al pain and left flank pain for 10 days. 1. Acute terminal ileitis with mesenteric adenitis, secondary to Crohn's flare, present on admission. Active. -Patient presented with abdominal pain and left flank pain with associated vomiting x 10 days. History of rectal fistula, gastroparesis or ?slow emptying?, gastric and colonic ulcers, and intermittent hematochezia. Of note, the patient does not have dumping syndrome and more likely has gastroparesis as she explained her stomach is slow to empty and she often vomits food from the day before. -Differential diagnosis includes probable inflammatory bowel disease i.e. Crohn's disease versus less likely infectious in etiology. GI panel ordered but not collected as patient has not had BM. -CT abdomen and pelvis with contrast demonstrated terminal ileitis with mild prominent mesenteric lymph nodes. -Patient is on a clear liquid diet and will advance as tolerated. -Continue Protonix 40 mg daily. -Continue IV fluids with NS at 100 mL/hr. -Continue Dilaudid to 1 mg every 1 hr as needed for pain, Zofran 4 mg every 6 hr as needed for nausea, and Ativan 0.5 mg IV 3 times daily as needed for nausea/vomiting. -General surgery has been consulted. We appreciate their time and recommendations. General surgery plans for small-bowel follow-through possibly today as nausea has improved. Additional lab work has been ordered to workup probable Crohn's disease including anti-saccharomyces antibody. CRP was ordered for inflammatory marker and to have baseline to compare to in order to monitor therapeutic treatment which was normal. -Received Solu-Medrol 125 mg IV x1 for loading dose. Continue budesonide 9 mg every morning for 8 weeks with close GI follow-up once abdominal pain, nausea and inflammation are improving and she able to go home. 2. Asthma, present on admission. Stable. -Will continue home inhaler as needed. 3. History of nephrolithiasis. -No recurrent kidney stones per CT. Disposition: Likely to discharge in 1-2 days depending upon improvement in nausea/abdominal pain and workup and treatment for Crohn's disease. Objective Labs Result Diagrams: 03/28/18 09:41 03/28/18 09:41 Quality VTE Deep Vein Thrombosis/Pulmonary Embolism Present on Admission: No
[2018-03-28] MEDS: ENOXAPARIN 40 MG/0.4 ML SYRINGE SUBCUT (09:09)
[2018-03-28] MEDS: HYDROMORPHONE 1 MG INJ IV ×4 (09:09→20:34)
[2018-03-28] MEDS: PANTOPRAZOLE 40 MG VIAL IV (09:09)
[2018-03-28] MEDS: BUDESONIDE 3 MG CAP 9 MG PO (09:09)
[2018-03-28 10:25] LABS: Add Manual Diff / Slide Review NO; Basophils Absolute Auto 100 /uL (0-100); Basophils Percent Auto 0.7 % (0-2); Eosinophils Absolute Auto 100 /uL (0-450); Eosinophils Percent Auto 1.4 % (2-4); Hematocrit 34.9 % (36-46); Hemoglobin 11.1 g/dL (12.0-16.0); Lymphocytes Absolute Auto 2100 /uL (1100-4500); Lymphocytes Percent Auto 29.4 % (25-40); Mean Corpuscular HGB Conc 31.9 % (30-36); Mean Corpuscular Hemoglobin 23.2 PG (26-34); Mean Corpuscular Volume 72.8 fL (80-100); Monocytes Absolute Auto 500 /uL (0-900); Monocytes Percent Auto 6.8 % (3-14); Neutrophils Absolute Auto 4500 /uL (1500-7000); Neutrophils Percent Auto 61.7 % (50-75); Platelet Count 262 X10^3/uL (150-400); Red Blood Cell Count 4.79 X10^6/uL (4.0-5.2); Red Cell Distribution Width 16.6 % (11.6-14.8); White Blood Cell Count 7.3 X10^3/uL (4.5-11.0)
[2018-03-28 10:37] LABS: Blood Urea Nitrogen 7 mg/dL (7-17); Calcium 8.3 mg/dL (8.4-10.2); Carbon Dioxide 27 mmol/L (22-32); Chloride 103 mmol/L (98-107); Estimated Glomerular Filt Rate > 60.0 mL/min (>60); Glucose 84 mg/dL (70-100); HEMOLYSIS < 15 (0-50); Potassium 3.3 mmol/L (3.4-5.1); Sodium 137 mmol/L (137-145)
--- NOTE | 2018-03-28 10:50 | PC.NURSE ---
Addendum entered by Aleyda Greenberg R.N. 03/28/18 13:24: pt arrived back from small bowel follow through, c/o feeling nauseated, vomited 300ml white colored fluid. IV ativan given. IV fluiding infusing per order. Original Note: Day shift. Pt c/o feeling nauseated this morning, medicated with IV zofran, reports helpful. Abdomen is soft, non distended, with very hypoactive BT, PT passing flatus small amount, was able to have small soft/formed brown stool. C/o pain 7/10 to abdomen medicated with IV dilaudid. Spouse at bedside. IV fluids infusing per order.
--- NOTE | 2018-03-28 12:15 | CM.DPC ---
DCP Cont: Met briefly with patient, with her. Had attempted to look up which providers accept [employer], and was unable to get information. Looked up some clinics in the [place] area, retrieved their phone numbers and gave to patient. Let her know that there may be a clinic that accepts her insurance, for she will be needing to follow up with a provider after discharge. P: DCP to continue to follow. Patient should be able to go home when she is medically stable, but is imperative that she finds provider as well. Yessy Green RN/[facility]
[2018-03-28] MEDS: SODIUM CHLORIDE 0.9% 1,000 ML 100 ML IV (14:16)
--- NOTE | 2018-03-28 14:50 | PM.PN.1 ---
Subjective Date Patient Seen: 03/28/18 Time Patient Seen: 14:50 Interval history: Patient seen and evaluated and chart and studies reviewed. SBFT completed this AM. Patient vomited shortly after returning to the floor. She is feeling a little bit better after vomiting. She had 1 tiny bowel movement earlier today. Passing minimal flatus. Tolerating minimal p.o.. Exam Vital Signs (past 8 hours): - 03/28/18 07:50 03/28/18 10:42 03/28/18 13:17 Temperature 97.7 F 98.2 F Pulse Rate 70 62 Respiratory Rate 18 18 Blood Pressure 152/94 H 173/101 H Pulse Oximetry 98 96 98 Oxygen Delivery Method Room Air Oxygen Flow Rate 0 Narrative Exam Narrative: Lungs: Essentially clear bilaterally Heart: Regular rate and rhythm Abdomen: Soft, still significantly tender to palpation in the right lower quadrant with minimal voluntary guarding. No rebound. Extremities: Warm and well perfused Objective Labs Result Diagrams: 03/28/18 09:41 03/28/18 09:41 Labs: Laboratory Results - last 24 hr 03/28/18 03/28/18 09:41 09:41 WBC 7.3 RBC 4.79 Hgb 11.1 L Hct 34.9 L MCV 72.8 L MCH 23.2 L MCHC 31.9 RDW 16.6 H Plt Count 262 Neut % (Auto) 61.7 D Lymph % (Auto) 29.4 D [place] % (Auto) 6.8 Eos % (Auto) 1.4 L Baso % (Auto) 0.7 Neut # (Auto) 4500 Lymph # (Auto) 2100 [place] # (Auto) 500 Eos # (Auto) 100 Baso # (Auto) 100 Sodium 137 Potassium 3.3 L Chloride 103 Carbon Dioxide 27 BUN 7 Creatinine 0.70 Estimated GFR > 60.0 BUN/Creatinine Ratio 10.0 Glucose 84 Calcium 8.[address] [address] XRay Report Signed Patient: Tammi Rodriguez MR#: [id number] : 1975 Acct:[id number] Age/Sex: 43 / F Date of Service: 03/28/18 Loc: 205-1 Accession Number: [id number] Procedure: [place] small bowel follow through Ordering Provider: Almita Horan MD PROCEDURE: [place] SMALL BOWEL FOLLOW THROUGH INDICATIONS: Terminal ileitis COMPARISON: [facility], CT, CT ABDOMEN PELVIS W CON, 03/24/2018, 12:21. FINDINGS: KUB: No acute disease. Small bowel: There is a relatively reduced transit time of barium through the small bowel. Small bowel loops are of normal caliber throughout until the terminal ileum is approached where mild mural thickening can be seen with both longitudinal and transverse mural thickening along the mucosal surfaces. Mucosal folds are smooth and of normal thickness more superiorly. No strictures, intraluminal masses, or extrinsic mass effects are noted. IMPRESSION: There is evidence of underlying inflammatory bowel disease involving the terminal ileum, most likely Crohn's disease, due to the presence of fibrofatty proliferation seen on CT and this small bowel follow-through examination, small bowel loops from the terminal ileum. Additionally there is abnormal mucosal fold thickening involving the terminal ileum and relative narrowing of the small bowel caliber in this area. Small bowel distention proximal to the area of abnormality is not found. No fistula formation is identified. The plain film findings correlate well with the CT finding from 03/24/18 of abnormal inflammation involving the terminal ileum. The patient reports anal fistula in addition to chronic bowel disease symptoms. Dictated by: Samir Walden M.D. on 03/28/2018 at 14:15 Approved by: Samir Walden M.D. on 03/28/2018 at 14:20 Assessment & Plan Assessment Narrative: Improving slowly. Small-bowel follow-through is confirmative of our suspicions of Crohn's disease. I think budesonide is a great option for a little bit later down the line but I will hold that for now and change her to IV Solu-Medrol at 60 mg a day. The flow through her terminal ileum is so minimal that I doubt very much we are getting another drug delivered to the area to be of benefit. Plan: Additionally, staff reports were having trouble with IVs. I discussed the midline with the patient but she is reluctant to do that today. She would like to wait and see if she has a good response to steroids so that she could start eating better in the days to come. Quality VTE Deep Vein Thrombosis/Pulmonary Embolism Present on Admission: No
[2018-03-28] MEDS: methylPREDNISolone 125 MG/2 ML VIAL 60 MG IV (15:24)
[2018-03-28 21:03] LABS: Magnesium 1.6 mg/dL (1.6-2.3)
[2018-03-28] MEDS: POTASSIUM CHLORIDE 40 MEQ in SODIUM CHLORIDE 0.9% 500 ML 130 ML IV (21:45)
[2018-03-29] VITALS (7 sets, daily range): BP systolic 139–151; BP diastolic 67–100; PULSE 54–73; RESP 16–20; TEMP 36.4–36.8; O2SAT 88–98
[2018-03-29] MEDS: HYDROMORPHONE 1 MG INJ IV ×5 (01:22→11:48)
[2018-03-29] MEDS: LORazepam 2 MG/ML SYRINGE 0.5 MG IV (06:13)
[2018-03-29 06:45] LABS: BUN Creatinine Ratio 8.3 (6-22); Blood Urea Nitrogen 5 mg/dL (7-17); Calcium 8.9 mg/dL (8.4-10.2); Carbon Dioxide 25 mmol/L (22-32); Chloride 103 mmol/L (98-107); Estimated Glomerular Filt Rate > 60.0 mL/min (>60); Glucose 85 mg/dL (70-100); HEMOLYSIS < 15 (0-50); Magnesium 1.7 mg/dL (1.6-2.3); Potassium 3.7 mmol/L (3.4-5.1); Sodium 139 mmol/L (137-145)
[2018-03-29 06:47] LABS: Add Manual Diff / Slide Review NO; Basophils Absolute Auto 0 /uL (0-100); Basophils Percent Auto 0.4 % (0-2); Eosinophils Absolute Auto 0 /uL (0-450); Eosinophils Percent Auto 0.3 % (2-4); Hematocrit 36.9 % (36-46); Hemoglobin 11.9 g/dL (12.0-16.0); Lymphocytes Absolute Auto 1900 /uL (1100-4500); Lymphocytes Percent Auto 19.5 % (25-40); Mean Corpuscular HGB Conc 32.2 % (30-36); Mean Corpuscular Hemoglobin 23.5 PG (26-34); Mean Corpuscular Volume 72.8 fL (80-100); Monocytes Absolute Auto 500 /uL (0-900); Monocytes Percent Auto 5.4 % (3-14); Neutrophils Absolute Auto 7300 /uL (1500-7000); Neutrophils Percent Auto 74.4 % (50-75); Platelet Count 282 X10^3/uL (150-400); Red Blood Cell Count 5.07 X10^6/uL (4.0-5.2); Red Cell Distribution Width 17.2 % (11.6-14.8); White Blood Cell Count 9.8 X10^3/uL (4.5-11.0)
[2018-03-29] MEDS: SODIUM CHLORIDE 0.9% 1,000 ML 100 ML IV (07:35)
[2018-03-29] MEDS: PANTOPRAZOLE 40 MG VIAL IV (09:18)
[2018-03-29] MEDS: methylPREDNISolone 125 MG/2 ML VIAL 60 MG IV (09:18)
[2018-03-29] MEDS: ENOXAPARIN 40 MG/0.4 ML SYRINGE SUBCUT (09:26)
[2018-03-29] MEDS: ONDANSETRON 4 MG/2 ML INJ IV (11:56)
--- NOTE | 2018-03-29 12:45 | PC.NURSE ---
PT TEARFUL AT TIMES THIS SHIFT- VERY SENSITIVE TO VERBAL/NOISE STIMULI SECONDARY TO IV STEROIDS- THINKS PT. SHE CONTINUES TO HAVE ABD PAIN/CRAMPING AND CONCERNED ABOUT PROGNOSIS- IVF CONTINUES AND SHE IS RECEIVING BOTH IV DILAUDID AND LORAZEPAM WELL INTERMITTENT ZOFRAN FOR C/O NAUSEA
--- NOTE | 2018-03-29 13:14 | PM.PN.1 ---
Subjective Date Patient Seen: 03/29/18 Time Patient Seen: 13:14 Interval history: Tammi is a little tearful today. She realizes it is likely a reaction to medication. She is upset concerning a visit she had with the dietitian. Bowel function has returned today and she has passed a good deal of gastrograffin and experienced some cramping and occassional nausea. She has tolerated clear liquids without difficulty and would be willing to try something more solid. Overall, she admits to improving. Exam Vital Signs (past 8 hours): - 03/29/18 06:04 03/29/18 07:00 03/29/18 07:38 Temperature 98.3 F 97.6 F Pulse Rate 54 L 73 Respiratory Rate 16 16 Blood Pressure 143/78 H 144/86 H Pulse Oximetry 98 88 L 97 03/29/18 11:15 Temperature 98.0 F Pulse Rate 61 Respiratory Rate 18 Blood Pressure 148/100 H Pulse Oximetry 96 Oxygen Delivery Method Room Air Oxygen Flow Rate 0 Narrative Exam Narrative: Abdomen is quite soft but remains tender to palpation in the right lower quadrant. Improved over prior examinations. Active bowel sounds. No peritoneal signs. Objective Labs Result Diagrams: 03/29/18 05:00 03/29/18 05:00 Labs: Laboratory Results - last 24 hr 03/28/18 03/28/18 03/29/18 09:41 09:41 05:00 WBC 9.8 RBC 5.07 Hgb 11.9 L Hct 36.9 MCV 72.8 L MCH 23.5 L MCHC 32.2 RDW 17.2 H Plt Count 282 Neut % (Auto) 74.4 Lymph % (Auto) 19.5 L [place] % (Auto) 5.4 Eos % (Auto) 0.3 L Baso % (Auto) 0.4 Neut # (Auto) 7300 H Lymph # (Auto) 1900 [place] # (Auto) 500 Eos # (Auto) 0 Baso # (Auto) 0 Sodium 137 Potassium 3.3 L Chloride 103 Carbon Dioxide 27 BUN 7 Creatinine 0.70 Estimated GFR > 60.0 BUN/Creatinine Ratio 10.0 Glucose 84 Calcium 8.3 L Magnesium 1.6 03/29/18 05:00 WBC RBC Hgb Hct MCV MCH MCHC RDW Plt Count Neut % (Auto) Lymph % (Auto) [place] % (Auto) Eos % (Auto) Baso % (Auto) Neut # (Auto) Lymph # (Auto) [place] # (Auto) Eos # (Auto) Baso # (Auto) Sodium 139 Potassium 3.7 Chloride 103 Carbon Dioxide 25 BUN 5 L Creatinine 0.60 Estimated GFR > 60.0 BUN/Creatinine Ratio 8.3 Glucose 85 Calcium 8.9 Magnesium 1.7 Assessment & Plan Plan: Will restart po budesinide tonight and decrease IV dose to 40 mg of solumedrol. Advance diet. Encouraged patient to ambulate and begin to prepare her mind and body for discharge to her home. Change to PO ativan. Quality VTE Deep Vein Thrombosis/Pulmonary Embolism Present on Admission: No
[2018-03-29] MEDS: BUDESONIDE 3 MG CAP 9 MG PO (15:43)
--- NOTE | 2018-03-29 18:38 | P.PN_ITS ---
Subjective Date Patient Seen: 03/29/18 Interval history: Tammi Rodriguez is a 43-year-old female with a past medical history significant for asthma, peptic ulcer disease, and nephrolithiasis who presented for exacerbation of abdominal pain and left flank pain for [address] scan and small-bowel follow-through showing terminal ileitis and mesenteric adenitis consistent Crohn's disease which is new diagnosis for her. Patient tolerated mashed potatoes this evening with mild nausea, no vomiting. She did finally passed through Gastrografin contrast. Exam Vital Signs (past 8 hours): - 03/29/18 11:15 03/29/18 16:00 03/29/18 16:12 Temperature 98.0 F 98.3 F Pulse Rate 61 73 Respiratory Rate 18 20 Blood Pressure 148/100 H 151/98 H Pulse Oximetry 96 98 98 Oxygen Delivery Method Room Air Oxygen Flow Rate 0 Narrative Exam Narrative: General: Alert, pleasant and cooperative, NAD Abdominal: Bowel sounds present, nondistended, soft with mild left upper quadrant tenderness Extremities: No edema Objective Labs Result Diagrams: 03/29/18 05:00 03/29/18 05:00 Labs: Laboratory Results - last 24 hr 03/28/18 03/28/18 03/29/18 09:41 09:41 05:00 WBC 9.8 RBC 5.07 Hgb 11.9 L Hct 36.9 MCV 72.8 L MCH 23.5 L MCHC 32.2 RDW 17.2 H Plt Count 282 Neut % (Auto) 74.4 Lymph % (Auto) 19.5 L [place] % (Auto) 5.4 Eos % (Auto) 0.3 L Baso % (Auto) 0.4 Neut # (Auto) 7300 H Lymph # (Auto) 1900 [place] # (Auto) 500 Eos # (Auto) 0 Baso # (Auto) 0 Sodium 137 Potassium 3.3 L Chloride 103 Carbon Dioxide 27 BUN 7 Creatinine 0.70 Estimated GFR > 60.0 BUN/Creatinine Ratio 10.0 Glucose 84 Calcium 8.3 L Magnesium 1.6 03/29/18 05:00 WBC RBC Hgb Hct MCV MCH MCHC RDW Plt Count Neut % (Auto) Lymph % (Auto) [place] % (Auto) Eos % (Auto) Baso % (Auto) Neut # (Auto) Lymph # (Auto) [place] # (Auto) Eos # (Auto) Baso # (Auto) Sodium 139 Potassium 3.7 Chloride 103 Carbon Dioxide 25 BUN 5 L Creatinine 0.60 Estimated GFR > 60.0 BUN/Creatinine Ratio 8.3 Glucose 85 Calcium 8.9 Magnesium 1.7 Assessment & Plan Plan: 1. Acute terminal ileitis with mesenteric adenitis, secondary to Crohn's flare, present on admission. Active. -Patient presented with abdominal pain and left flank pain with associated vomiting x 10 days. History of rectal fistula, gastroparesis or ?slow emptying?, gastric and colonic ulcers, and intermittent hematochezia. Of note, the patient does not have dumping syndrome and more likely has gastroparesis as she explained her stomach is slow to empty and she often vomits food from the day before. -Differential diagnosis includes probable inflammatory bowel disease i.e. Crohn's disease versus less likely infectious in etiology. -CT abdomen and pelvis with contrast demonstrated terminal ileitis with mild prominent mesenteric lymph nodes. -advance diet -Continue Protonix 40 mg daily. -oxycodone 5 mg q.4 hours as needed for pain, Zofran 4 mg every 6 hr as needed for nausea, and Ativan 0.5 mg po q.6 hours as needed for nausea/vomiting. DC IV Dilaudid. -General surgery assisting with patient management. We appreciate their time and recommendations. CRP less than 0.5. 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 -Received Solu-Medrol 125 mg IV x1 for loading dose then Solu-Medrol 40 mg IV daily in-hospital. -Continue budesonide 9 mg every morning for 8 weeks. Confirmed budesonide is covered on patient's [employer] health plan -patient will need to establish with PCP and get referred to GI. She may need to see Dr Horan for hospital follow-up in interim. 2. Asthma, present on admission. Stable. -Will continue home inhaler as needed. 3. History of nephrolithiasis. -No recurrent kidney stones per CT. Disposition: Patient with improving course and likely can discharge home tomorrow, Monday. Quality VTE Deep Vein Thrombosis/Pulmonary Embolism Present on Admission: No
--- NOTE | 2018-03-29 19:31 | PM.DS.1 ---
History of Present Illness Chief complaint: States pain in both kidneys, abd pain, vomiting Narrative: Tammi is a very pleasant and understandably frustrated 43-year-old lady who presented to our emergency room with left-sided abdominal pain and flank pain. She reports that she was seen at an urgent care and was referred to the emergency room. It was felt at that time that she might be passing a kidney stone. She does have a history of kidney stones and has passed several in the past. He she reports that she has had a lifetime of abdominal pain. Her symptoms have been waxing and waning and she does not recall a time during her dull life that she was in dealing with it. She has recently moved to our area from [place] where she underwent weiss endoscopy and evaluation for a nonhealing rectal fistula. She says she had upper and lower studies and a biopsy of the ileum that was not revealing. She does state that the GI physician doing her endoscopy remarked that her ileum was too swollen to get a look at. She has been having nausea and dry heaving. She is complaining of fairly severe bilateral abdominal pain. CT scan done in our emergency room revealed distal ileitis and she has been admitted to the medicine service for treatment. I have been consulted regarding these findings on CT. In addition to distal ileitis she also has findings consistent with mesenteric adenitis. She does not recall ever having had an upper GI and small-bowel follow-through. She has never been treated with steroids or other immune modulating drugs. She reports that her doctor in [place] did remark that she may have inflammatory bowel disease but her studies to this point have been inconclusive. At this time and she reports that she has extremely uncomfortable. She has passed small amounts of flatus but nothing today. She is not hungry. She reports that everything she eats even on her best day generally makes her feel badly. Discharge Providers Date of admission: 03/24/18 16:36 Discharge provider: Nathanael Dobbs MD Discharge Date: 03/29/18 Summary Discharge Diagnosis: 1. Acute terminal ileitis with mesenteric adenitis, presumed Crohn's disease versus infectious/other 2. Crohn's disease, new diagnosis (probable) Hospital Course: 1. Acute terminal ileitis with mesenteric adenitis, secondary to Crohn's flare, present on admission. Active. -Patient presented with abdominal pain and left flank pain with associated vomiting x 10 days. History of rectal fistula, gastroparesis or ?slow emptying?, gastric and colonic ulcers, and intermittent hematochezia. Of note, the patient does not have dumping syndrome and more likely has gastroparesis as she explained her stomach is slow to empty and she often vomits food from the day before. -Differential diagnosis includes probable inflammatory bowel disease i.e. Crohn's disease versus less likely infectious in etiology. -CT abdomen and pelvis with contrast demonstrated terminal ileitis with mild prominent mesenteric lymph nodes. -CRP less than 0.5. Pending lab: anti-saccharomyces antibody -tolerated advance diet --Continue budesonide 9 mg every morning for 8 weeks then taper as directed. Confirmed budesonide is covered on patient's [employer] plan -oxycodone 5 mg q.4 hours as needed for acute pain, for short-term use only, Zofran 4 mg every 6 hr as needed for nausea, and Ativan 0.5 mg po q.6 hours as needed for nausea/vomiting. -General surgery, Dr. Horan, assisting with patient management. We appreciate their time and recommendations. -patient will need to establish with PCP and get referred to GI. She may need to see Dr Horan for hospital follow-up in interim. 2. Asthma, present on admission. Stable. -Will continue home inhaler as needed. 3. History of nephrolithiasis. -No recurrent kidney stones per CT. Status at Discharge Functional status at discharge: independent ambulation Time Spent with Patient Greater than 30 minutes Exam Vital Signs (past 8 hours): - 03/29/18 16:00 03/29/18 16:12 Temperature 98.3 F Pulse Rate 73 Respiratory Rate 20 Blood Pressure 151/98 H Pulse Oximetry 98 98 Oxygen Delivery Method Room Air Oxygen Flow Rate 0 Objective Labs Result Diagrams: 03/29/18 05:00 03/29/18 05:00 Labs: Laboratory Results - last 24 hr 03/28/18 03/28/18 03/29/18 09:41 09:41 05:00 WBC 9.8 RBC 5.07 Hgb 11.9 L Hct 36.9 MCV 72.8 L MCH 23.5 L MCHC 32.2 RDW 17.2 H Plt Count 282 Neut % (Auto) 74.4 Lymph % (Auto) 19.5 L [place] % (Auto) 5.4 Eos % (Auto) 0.3 L Baso % (Auto) 0.4 Neut # (Auto) 7300 H Lymph # (Auto) 1900 [place] # (Auto) 500 Eos # (Auto) 0 Baso # (Auto) 0 Sodium 137 Potassium 3.3 L Chloride 103 Carbon Dioxide 27 BUN 7 Creatinine 0.70 Estimated GFR > 60.0 BUN/Creatinine Ratio 10.0 Glucose 84 Calcium 8.3 L Magnesium 1.6 03/29/18 05:00 WBC RBC Hgb Hct MCV MCH MCHC RDW Plt Count Neut % (Auto) Lymph % (Auto) [place] % (Auto) Eos % (Auto) Baso % (Auto) Neut # (Auto) Lymph # (Auto) [place] # (Auto) Eos # (Auto) Baso # (Auto) Sodium 139 Potassium 3.7 Chloride 103 Carbon Dioxide 25 BUN 5 L Creatinine 0.60 Estimated GFR > 60.0 BUN/Creatinine Ratio 8.3 Glucose 85 Calcium 8.9 Magnesium 1.7 Discharge Plan Discharge Plan Patient Disposition: Home Discharge Med Rec/Prescriptions Prescriptions: New lorazepam 1 mg Tablet 1 mg PO Q6HR PRN (Reason: Anxiety) Qty: 30 RF: 0 oxycodone 5 mg Tablet 5 mg PO Q4HR PRN (Reason: Pain, Moderate (4-6)) Qty: 30 RF: 0 ondansetron HCl [Zofran] 4 mg tablet 4 mg PO Q6H PRN (Reason: nausea and vomiting) Qty: 30 RF: 0 budesonide 3 mg capsule,delayed,extend.release 9 mg PO DAILY Qty: 90 RF: 0 Continued ipratropium bromide [Atrovent HFA] 17 mcg/actuation HFA aerosol inhaler 1 puff INHALATION Q6H PRN (Reason: Wheezing) RF: 0 Discontinued tramadol 50 mg tablet 50 mg PO Q4-6H PRN (Reason: pain) Qty: 20 RF: 0 tamsulosin 0.4 mg capsule 0.4 mg PO DAILY Qty: 30 RF: 0 Follow up/Referrals: Almita Horan MD [Physician] - 1 Week Provider Discharge Instructions Diet: Diet as Tolerated Discharge Data Attending Provider: Jenelle Coon Admit Date/Time: 03/24/18 16:36 Quality VTE Deep Vein Thrombosis/Pulmonary Embolism Present on Admission: No
--- NOTE | 2018-03-29 19:48 | PC.NURSE ---
Keely shift note: Patient discharged per MD order, home with via private vehicle. Patient tolerated regular diet, no nausea. Pain controlled. VSS and afebrile. Patient verbalized understanding of discharge instructions, follow up appointment, and dietary changes. IV removed.
== END 2018-03-29 19:57 | disposition home or self-care (01) | DRG 245 ==
LOC: ED 16:32 → AC 16:37
PROVIDERS: Emergency Medicine; Internal Medicine; Nurse Practitioner Gerontology; Surgery; Admitting Provider Family Medicine; Emergency Provider Internal Medicine; Visit Provider Family Medicine
DX: K50.00 Crohn's disease of small intestine without complications (principal); I88.0 Nonspecific mesenteric lymphadenitis; J45.909 Unspecified asthma, uncomplicated; K31.84 Gastroparesis; D62 Acute posthemorrhagic anemia; Z87.891 Personal history of nicotine dependence
CPT/HCPCS: 36415; 36591; 74177; 74250; 80048; 80053; 81003; 81025; 83690; 83735; 84145; 85025; 85610; 85651; 85730; 86140; 87400; 96361; 96374; 96375; 96376; 99284; 99285; C9113; J0780; J1100; J1170; J1650; J1885; J2060; J2405; J2930; J3480

== ENCOUNTER 2018-05-23 20:52 | Emergency (ER) | payer OTHER, SELFPAY ==
[2018-03-24 17:26] VITALS: BMI 39.6
--- NOTE | 2018-05-23 21:00 | DI.RAD.S_ITS ---
PROCEDURE: XR ACUTE ABDOMEN SERIES INDICATIONS: Abdominal pain TECHNIQUE: One view chest and two views of the abdomen were acquired. COMPARISON: [facility], [place], [place] SMALL BOWEL FOLLOW THROUGH, 03/28/2018, 12:06. [facility], CT, CT ABDOMEN PELVIS W CON, 03/24/2018, 12:21. FINDINGS: Surgical changes and devices: None. Chest: Lungs are clear. Heart size is normal. No pleural effusions. No pneumoperitoneum. Abdomen: Bowel gas pattern is nonspecific with a few air-fluid levels demonstrated in non-distended small bowel loops in the right abdomen. There is a paucity of gas elsewhere in the small bowel. Intraluminal gas is demonstrated within the descending and transverse colon with a paucity of gas distally. No suspicious calcifications. Bones: No suspicious bony lesions. IMPRESSION: 1. Nonspecific bowel gas pattern with a few air-fluid levels in nondistended small bowel loops in the right abdomen. The findings may reflect a mild partial obstruction or ileus secondary to terminal ileitis as seen on the prior studies. Recommend attention on short term followup or a repeat CT if clinically indicated. Dictated by: Raffi Torres M.D. on 05/23/2018 at 21:42 Approved by: Raffi Torres M.D. on 05/23/2018 at 21:46
[2018-05-23 21:13] LABS: Bacteria Urine None Seen; RBC Urine None Seen (0-5/HPF)
[2018-05-23 21:14] VITALS: BP 139/82; PULSE 70; RESP 18; TEMP 36.6; O2SAT 95; BMI 38.3
--- NOTE | 2018-05-23 21:21 | ED.ABDPAIN ---
HPI - Abdominal Pain General Chief Complaint: Abdominal Pain Stated Complaint: THINKS SHE HAS A BOWEL OBSTRUCTION Time Seen by Provider: 05/23/18 20:55 Source: patient and family Mode of arrival: ambulatory Limitations: no limitations History of Present Illness HPI narrative: 43-year-old female nonsmoker with history of a bowel obstruction presents to the emergency department with her daughter and a chief complaint abdominal pain with nausea and vomiting since . She states the symptoms remind her of an episode of small-bowel obstruction in March in which she was hospitalized for a few days. She ended up with the CT scan showing some inflammation of her terminal ileum and was diagnosed with small bowel obstruction secondary to Crohn's. She was started on a prednisone taper which she is still supposed to be taking but had to stop because her insurance lapsed. She renew her insurance yesterday and called her doctor for a renewal of her prescription and upon discussing her symptoms she was encouraged to present to the emergency department. She had done a bit better over the past day or 2 with a very limited diet but tried eating again this afternoon and developed significant pain and vomiting began. MD complaint: abdominal pain Onset (ago): day(s) Pain Consistency: constant Location: diffuse Severity: moderate Quality: cramping Radiation: none Migration to: no migration Relieving factors: nothing Exacerbating factors: eating Associated symptoms: nausea and vomiting Related Data Previous Rx's Medication Instructions Recorded ondansetron HCl [Zofran] 4 mg PO Q6H PRN #30 tab 03/29/18 ipratropium bromide 17 1 puff INHALATION Q6H PRN #12.9 04/17/18 mcg/actuation HFA aerosol inhaler gram budesonide DR - ER 3 mg 9 mg PO DAILY #90 each 05/08/18 capsule,delayed,extended release lorazepam 1 mg tablet 0.5 mg PO Q6HR PRN #40 tab 05/08/18 Allergies Allergy/AdvReac Type Severity Reaction Status Date / Time morphine Allergy Severe Vomiting Verified 05/23/18 21:14 Review of Systems Constitutional Denies chills, Denies fever(s), Denies lethargy and Denies weakness Eyes Denies change in vision, Denies eye discharge, Denies irritation and Denies loss of vision ENT Ears, Nose, Mouth, and Throat: Denies change in voice, Denies neck pain and Denies sore throat Cardiovascular Denies chest pain, Denies irregular heart rhythm, Denies lightheadedness, Denies palpitations, Denies dyspnea on exertion and Denies orthopnea Respiratory Denies cough, Denies dyspnea on exertion and Denies wheezing Gastrointestinal Gastrointestinal: Reports abdominal pain, Reports change in bowel habits, Denies diarrhea, Reports nausea and Reports vomiting Genitourinary Denies hematuria, Denies flank pain, Denies urinary incontinence and Denies urinary urgency Musculoskeletal Denies neck pain Integumentary/Breasts Denies pruritus, Denies erythema, Denies rash and Denies wounds Neurologic Denies confusion, Denies loss of vision and Denies weakness Psychiatric Denies anxiety, Denies confusion, Denies depression, Denies homicidal ideation and Denies suicidal ideation Endocrine Denies palpitations Hematologic/Lymphatic Denies easy bruising Allergic/Immunologic Denies wheezing [facility] Medical History History of asthma (Chronic) History of kidney stones (Chronic) Nonsurgical dumping syndrome (Chronic) History of gastric ulcer (Resolved) Surgical History History of tonsillectomy and adenoidectomy (Resolved) History of uterine scar from previous surgery (Resolved) Status post (Resolved) Family History Mother Hypertension COPD (chronic obstructive pulmonary disease) Neuropathy Grandmother Cancer Grandfather Cancer Other Family history non-contributory Social History household members: spouse and none Smoking Status: Former smoker Tobacco: How many years used: 5 second hand exposure: No alcohol intake: current (wine, socailly ) substance use type: marijuana Family History Mother Hypertension COPD (chronic obstructive pulmonary disease) Neuropathy Grandmother Cancer Grandfather Cancer Other Family history non-contributory Social History household members: spouse and none Smoking Status: Former smoker Tobacco: How many years used: 5 second hand exposure: No alcohol intake: current (wine, socailly ) substance use type: marijuana Exam Narrative Exam Narrative: GENERAL: 43-year-old female appears younger than stated age, obviously uncomfortable, holding an emesis bag HEAD: Atraumatic. Normocephalic. No temporal or scalp tenderness. EYES: Pupils equal round and reactive. Extraocular motions intact. No scleral icterus. No injection or drainage. ENT: Nose without bleeding, purulent drainage or septal hematoma. Throat without erythema, tonsillar hypertrophy or exudate. Uvula midline. Airway patent. NECK: Trachea midline. No JVD or lymphadenopathy. Supple, nontender, no meningeal signs. CARDIOVASCULAR: Regular rate and rhythm without murmurs, gallops, or rubs. RESPIRATORY: Clear to auscultation. Breath sounds equal bilaterally. No wheezes, rales, or rhonchi. GASTROINTESTINAL: Abdomen soft, generalized tenderness, nondistended. No hepato-splenomegaly, or palpable masses. No guarding. EXTREMITIES: No clubbing, cyanosis, or edema. No joint tenderness, effusion, or edema noted. BACK: Nontender without deformity or crepitance. No flank tenderness. NEURO: AOx3. SKIN: No rash or erythema. Initial Vital Signs Initial Vital Signs: Vital Signs Temperature 97.8 F 05/23/18 21:14 Pulse Rate 70 05/23/18 21:14 Respiratory Rate 18 05/23/18 21:14 Blood Pressure 139/82 05/23/18 21:14 Pulse Oximetry 95 05/23/18 21:14 Course Orders Ordered: ED Orders 05/23/18 21:00 XR acute abdomen series Stat 05/23/18 21:03 Urine Microscopic Stat 05/23/18 21:35 Comprehensive Metabolic Panel Stat Lipase Stat 05/23/18 21:39 Complete Blood Count AUTO DIFF Stat 05/23/18 22:13 CT abdomen pelvis w con Stat Hydromorphone HCl (Dilaudid) 1 mg IV Q15M PRN PRN Reason: Pain, Severe (7-10) Last Admin: 05/23/18 22:23 Dose: 1 mg Discontinued Medications Hydromorphone HCl (Dilaudid) 0.5 mg IV NOW ONE Stop: 05/24/18 01:47 Last Admin: 05/24/18 01:51 Dose: 0.5 mg Sodium Chloride (Normal Saline 0.9%) 500 mls @ 1,000 mls/hr IV BOLUS ONE Stop: 05/23/18 21:29 Last Infusion: 05/23/18 23:43 Dose: 0 mls/hr Admin: 05/23/18 21:37 Dose: 1,000 mls/hr Lorazepam (Ativan) 0.5 mg IV NOW ONE Stop: 05/23/18 23:07 Last Admin: 05/23/18 23:19 Dose: 0.5 mg Methylprednisolone (Solu-Medrol 125 Mg Vial) 125 mg IV NOW ONE Stop: 05/23/18 22:34 Last Admin: 05/23/18 22:51 Dose: 125 mg Ondansetron HCl (Zofran) 4 mg IV NOW ONE Stop: 05/23/18 21:01 Last Admin: 05/23/18 21:35 Dose: 4 mg Consultations Consultation #1: 5 - call to Dr. Lam (general surgeon) - patient needs facility with GI given Crohn's 2209 - [facility] no [facility] facilities have appropriate beds, they give us permission to attempt to find placement for patient 2229 - call to [facility] GI; happy to play a role in evaluation of patient, but requests admission to hospitalist 2229 - call to [facility] hospitalist 44 - call back from [facility]. Assumed the call was in error as they have no beds and are boarding in the ED 49 - call to [facility], happy to accept patient provided I can speak with GI and Gen Surgery 54 - [place] supervisor knitting informs me that they cannot accept out of [facility] surgical patients as the OR is down 0120 - call to [facility]. No beds 0127 - call to . Dr. Chandler is happy to accept. Ambulance contacted and will arrive at 0400. She will need ALS given need for pain meds Vital Signs - 8 hr 05/23/18 21:14 05/23/18 22:01 Temperature 97.8 F Pulse Rate 70 72 Respiratory Rate 18 15 Blood Pressure 139/82 Blood Pressure [Left Arm] 123/104 H Pulse Oximetry 95 100 MDM - Abdominal Pain Medical Records Attestation: I reviewed the patient's medical records. Lab Data Attestation: I reviewed the patient's lab results. Result diagrams: 05/23/18 21:39 05/23/18 21:35 Lab Results 05/23/18 05/23/18 05/23/18 Range/Units 21:03 21:35 21:39 WBC 10.4 (4.5-11.0) X10^3/uL RBC 5.21 H (4.0-5.2) X10^6/uL Hgb 12.0 (12.0-16.0) g/dL Hct 37.7 (36-46) % MCV 72.4 L (80-100) fL MCH 23.0 L (26-34) PG MCHC 31.8 (30-36) % RDW 17.7 H (11.6-14.8) % Plt Count 290 (150-400) X10^3/uL Neut % (Auto) 62.8 (50-75) % Lymph % (Auto) 26.5 (25-40) % [place] % (Auto) 6.3 (3-14) % Eos % (Auto) 3.6 (2-4) % Baso % (Auto) 0.8 (0-2) % Neut # (Auto) 6500 (0764-7482) /uL Lymph # (Auto) 2700 (9558-2625) /uL [place] # (Auto) 700 (0-900) /uL Eos # (Auto) 400 (0-450) /uL Baso # (Auto) 100 (0-100) /uL Sodium 139 (137-145) mmol/L Potassium 4.0 (3.4-5.1) mmol/L Chloride 105 (98-107) mmol/L Carbon Dioxide 25 (22-32) mmol/L BUN 9 (7-17) mg/dL Creatinine 0.80 (0.52-1.04) mg/dL Estimated GFR > 60.0 (>60) mL/min BUN/Creatinine Ratio 11.3 (6-22) Glucose 77 (70-100) mg/dL Calcium 8.8 (8.4-10.2) mg/dL Total Bilirubin 0.3 (0.2-1.3) mg/dL AST 23 (14-36) IU/L ALT 25 (9-52) IU/L Alkaline Phosphatase 52 (38-126) U/L Total Protein 7.5 (6.3-8.2) g/dL Albumin 4.1 (3.5-5.0) g/dL Globulin 3.4 (1.7-4.1) g/dL Albumin/Globulin Ratio 1.2 (1.0-2.8) Lipase 89 (23-300) U/L Urine RBC None seen (0-5/HPF) Urine WBC 5-10/hpf H (0-5/HPF) Ur Squamous Epith Cells 5-10 /hpf H Urine Bacteria None seen (None) Ur Culture Indicated? Cult not indicated Point of care testing: Urine Dip Bedside Urine Glucose Negative Bedside Urine Bilirubin - Negative Bedside Urine Ketone - Negative Urine Specific [place] 1.015 Bedside Urine Occult Blood - Negative Bedside Urine pH 6.0 Bedside Urine Protein - Negative Bedside Urine Urobilinogen - Negative Bedside Urine Nitrite - Negative Bedside Urine Leukocytes + [address] scan - abdomen: Radiologist's impression: Circumferential edema with stenosis or stricture involving the terminal ileum at the ileocecal, mild small bowel obstruction Critical Care Time Critical Care Time: Yes Total Critical Care Time: 30 Attestation: The high probability of a clinically significant, sudden or life threatening deterioration of the [Gi/CV] system(s) required my full and direct attention, intervention and personal management. The aggregate critical care time was [30] minutes. This time is in addition to time spent performing reported procedures but includes the following: [x] Data Review and interpretation [x] Patient assessment and monitoring of vital signs [x] Documentation [x] Medication orders and management Discharge Plan Departure Prescriptions: No Action Atrovent HFA 17 mcg/actuation HFA aerosol inhaler 1 puff INHALATION Q6H PRN (Reason: Wheezing) Qty: 12.9 RF: 3 budesonide 3 mg capsule,delayed,extend.release 9 mg PO DAILY Qty: 90 RF: 2 lorazepam 1 mg tablet 0.5 mg PO Q6HR PRN (Reason: nausea and vomiting) Qty: 40 RF: 0 ondansetron HCl [Zofran] 4 mg tablet 4 mg PO Q6H PRN (Reason: nausea and vomiting) Qty: 30 RF: 0
[2018-05-23 21:22] LABS: Culture Indicated Urine Cult Not Indicated; Squamous Epithelial Cell Urine 5-10 /HPF; WBC Urine 5-10/HPF (0-5/HPF)
[2018-05-23] MEDS: ONDANSETRON 4 MG/2 ML INJ IV (21:35)
[2018-05-23] MEDS: SODIUM CHLORIDE 0.9% 500 ML 1000 ML IV (21:37)
[2018-05-23 21:44] LABS: Add Manual Diff / Slide Review NO; Basophils Absolute Auto 100 /uL (0-100); Basophils Percent Auto 0.8 % (0-2); Eosinophils Absolute Auto 400 /uL (0-450); Eosinophils Percent Auto 3.6 % (2-4); Hematocrit 37.7 % (36-46); Lymphocytes Absolute Auto 2700 /uL (1100-4500); Lymphocytes Percent Auto 26.5 % (25-40); Mean Corpuscular HGB Conc 31.8 % (30-36); Mean Corpuscular Volume 72.4 fL (80-100); Monocytes Absolute Auto 700 /uL (0-900); Monocytes Percent Auto 6.3 % (3-14); Neutrophils Absolute Auto 6500 /uL (1500-7000); Neutrophils Percent Auto 62.8 % (50-75); Platelet Count 290 X10^3/uL (150-400); Red Blood Cell Count 5.21 X10^6/uL (4.0-5.2); Red Cell Distribution Width 17.7 % (11.6-14.8); White Blood Cell Count 10.4 X10^3/uL (4.5-11.0)
[2018-05-23 22:01] VITALS: BP 123/104; PULSE 72; RESP 15; O2SAT 100
[2018-05-23 22:03] LABS: Alanine Aminotransferase 25 IU/L (9-52); Albumin 4.1 g/dL (3.5-5.0); Albumin Globulin Ratio 1.2 (1.0-2.8); Alkaline Phosphatase 52 U/L (38-126); Aspartate Aminotransferase 23 IU/L (14-36); BUN Creatinine Ratio 11.3 (6-22); Bilirubin Total 0.3 mg/dL (0.2-1.3); Blood Urea Nitrogen 9 mg/dL (7-17); Calcium 8.8 mg/dL (8.4-10.2); Carbon Dioxide 25 mmol/L (22-32); Chloride 105 mmol/L (98-107); Estimated Glomerular Filt Rate > 60.0 mL/min (>60); Globulin 3.4 g/dL (1.7-4.1); Glucose 77 mg/dL (70-100); HEMOLYSIS 52 (0-50); Lipase 89 U/L (23-300); Sodium 139 mmol/L (137-145); Total Protein 7.5 g/dL (6.3-8.2)
--- NOTE | 2018-05-23 22:13 | DI.CT.S_ITS ---
PROCEDURE: CT ABDOMEN PELVIS W CON INDICATIONS: bowel obstruction, likely secondary to Crohn's TECHNIQUE: After the administration of intravenous contrast, 5 mm thick sections acquired from the diaphragm to the symphysis. 5 mm coronal and sagittal reformats were acquired. For radiation dose reduction, the following was used: automated exposure control, adjustment of mA and/or kV according to patient size. COMPARISON: [facility], CT, CT ABDOMEN PELVIS W CON, 03/24/2018, 12:21. FINDINGS: Image quality: Excellent. ABDOMEN: Lung bases: Lung bases are clear. Heart size is normal. Solid organs: There is hepatic steatosis. Liver is normal in size and enhancement. Gallbladder is normal. Biliary system is non dilated. Pancreas enhances normally. Spleen is normal in size and enhancement. No adrenal nodules. Kidneys demonstrate normal size and enhancement, without hydronephrosis. Peritoneum and bowel: Small bowel loops are filled with fluid measuring up to 3.6 cm proximal to the terminal ileum. Mild narrowing at the terminal ileum and ileocecal bowel. The appendix is normal. No free fluid or air. Nodes and vessels: No retroperitoneal or mesenteric adenopathy by size criteria. Aorta and inferior vena cava are normal in size. Miscellaneous: No ventral hernias. PELVIS: Genitourinary: Bladder wall thickness is normal. Uterus and ovaries are unremarkable. No pathologic free fluid. Miscellaneous: No inguinal hernias or adenopathy. Bones: No suspicious bony lesions. No vertebral body compression fractures. IMPRESSION: 1. Mild narrowing at the terminal ileum and ileocecal valve. Small bowel loops are filled with fluid measuring up to 3.6 cm proximal the terminal ileum and ileocecal valve, suggesting mild small bowel obstruction. 2. Normal appendix. 3. Hepatic steatosis. No significant discrepancy with the final touch up painter radiology preliminary report. Dictated by: Giselle Patricio M.D. on 05/24/2018 at 7:28 Approved by: Giselle Patricio M.D. on 05/24/2018 at 7:34
[2018-05-23] MEDS: HYDROMORPHONE 1 MG INJ IV (22:23)
[2018-05-23] MEDS: methylPREDNISolone 125 MG/2 ML VIAL IV (22:51)
[2018-05-23] MEDS: LORazepam 2 MG/ML SYRINGE 0.5 MG IV (23:19)
[2018-05-24] MEDS: HYDROMORPHONE 1 MG INJ 0.5 MG IV ×2 (01:51→04:20)
[2018-05-24 02:25] VITALS: BP 127/56; PULSE 77; RESP 14; O2SAT 97
[2018-05-24] MEDS: LORazepam 2 MG/ML SYRINGE 0.5 MG IV (03:42)
== END 2018-05-24 04:29 | disposition short-term general hospital (02) ==
PROVIDERS: Emergency Provider Emergency Medicine; Family Provider Nurse Practitioner Family; PCP Nurse Practitioner Family
DX: K56.609 Unspecified intestinal obstruction, unspecified as to partial versus complete obstruction (principal)
CPT/HCPCS: 36415; 36591; 74022; 74177; 80053; 81003; 81015; 83690; 85025; 96361; 96374; 96375; 96376; 99283; 99284; J1170; J2060; J2405; J2930; Q9967

== ENCOUNTER → 2018-06-19 12:07 | Outpatient (CLI) | payer OTHER, SELFPAY ==
[2018-03-24 17:26] VITALS: BMI 39.6
[2018-06-19 14:05] LABS: Estradiol, Total 75.7 pg/mL
[2018-06-21 13:59] LABS: RPR Screen Nonreactive (Nonreactive)
== END ==
PROVIDERS: Family Provider Nurse Practitioner Family; PCP Nurse Practitioner Family
DX: N95.1 Menopausal and female climacteric states (principal); Z71.1 Person with feared health complaint in whom no diagnosis is made
CPT/HCPCS: 36415; 82670; 83001; 86592

== ENCOUNTER → 2018-08-07 12:32 | Outpatient (CLI) | payer OTHER, SELFPAY ==
[2018-03-24 17:26] VITALS: BMI 39.6
[2018-08-07 14:42] LABS: HCG Quantitative /Beta subunit < 2.39 mIU/mL
== END ==
PROVIDERS: Family Provider Nurse Practitioner Family; PCP Nurse Practitioner Family; Visit Provider Nurse Practitioner Family
DX: O03.9 Complete or unspecified spontaneous abortion without complication (principal)
CPT/HCPCS: 36415; 84702

== ENCOUNTER → 2020-08-19 09:47 | Outpatient (CLI) | payer OTHER, SELFPAY ==
[2018-03-24 17:26] VITALS: BMI 39.6
[2020-08-19 10:40] LABS: Hematocrit 36.9 % (36-46); Hemoglobin 11.5 g/dL (12.0-16.0); Mean Corpuscular HGB Conc 31.3 % (30-36); Mean Corpuscular Hemoglobin 23.1 PG (26-34); Mean Corpuscular Volume 73.9 fL (80-100); Platelet Count 255 X10^3/uL (150-400); Red Cell Distribution Width 17.2 % (11.6-14.8); White Blood Cell Count 7.3 X10^3/uL (4.5-11.0)
[2020-08-19 11:41] LABS: Alanine Aminotransferase 17 IU/L (<35); Albumin Globulin Ratio 1.1 (1.0-2.8); Alkaline Phosphatase 66 U/L (38-126); Aspartate Aminotransferase 22 IU/L (14-36); BUN Creatinine Ratio 14.3 (6-22); Bilirubin Total 0.3 mg/dL (0.2-1.3); Blood Urea Nitrogen 9 mg/dL (7-17); Calcium 8.9 mg/dL (8.4-10.2); Carbon Dioxide 26 mmol/L (22-32); Chloride 107 mmol/L (98-107); Estimated Glomerular Filt Rate > 60.0 mL/min (>60); Globulin 3.6 g/dL (1.7-4.1); Glucose 100 mg/dL (70-100); HEMOLYSIS < 15 (0-50); Magnesium 1.9 mg/dL (1.6-2.3); Potassium 4.1 mmol/L (3.4-5.1); Sodium 138 mmol/L (137-145); Total Protein 7.6 g/dL (6.3-8.2)
[2020-08-19 12:09] LABS: TSH w/ Reflex to FT4 0.35 uIU/mL (0.47-4.68)
[2020-08-19 12:38] LABS: Free T4, Direct Thyroxine 1.51 ng/dL (0.78-2.19)
== END ==
PROVIDERS: Family Provider Nurse Practitioner Family; PCP Nurse Practitioner Family; Referring Provider Nurse Practitioner Family; Visit Provider Nurse Practitioner Family
DX: K50.018 Crohn's disease of small intestine with other complication (principal); F32.9 Major depressive disorder, single episode, unspecified; F41.9 Anxiety disorder, unspecified; R07.9 Chest pain, unspecified
CPT/HCPCS: 36415; 80053; 83735; 84439; 84443; 85027

== ENCOUNTER → 2020-09-07 10:01 | Outpatient (CLI) | payer OTHER, SELFPAY ==
[2018-03-24 17:26] VITALS: BMI 39.6
--- NOTE | 2020-10-05 08:33 | P.HOLT.S_ITS ---
Interventional Sale Consultant Report Referral & Results Date Patient Seen: 09/07/20 Requesting provider: Jimenez Dos Santos Indication: Palpitations Duration of monitoring (days): 7 Diary information: There were 75 patient triggered events and 0 patient diary entries Patient triggered events were associated with (within 45 seconds) sinus rhythm, PACs, PVCs, and SVT (rarely) Data: Minimum heart rate was 45 beats per minute at 04:40 on 09/08/2020 Maximum sinus heart rate was 171 beats per minute at 17:48 on 09/12/2020 Maximum overall heart rate was 200 beats per minute at 14:03 on 09/10/2020 during a 6 beat run of SVT Less than 1% of identified beats were ventricular or supraventricular ectopic in origin, which would classify them as rare. There were 3 runs of SVT the fastest being the 6 beat run noted above the longest lasting 10 beats at a rate of 101 beats per minute which suggest more atrial tachycardia than true SVT Impression: 7 day satellite project site monitor showing very rare very brief runs of SVT and otherwise rare PVCs and PACs Patient's symptoms difficult to pinpoint to someone specific dysrhythmia. There were 75 different patient events associated with a variety of dysrhythmias as above none of which were serious Overall clinical correlation suggested
== END ==
PROVIDERS: Family Provider Nurse Practitioner Family; PCP Nurse Practitioner Family; Referring Provider Nurse Practitioner Family; Visit Provider Nurse Practitioner Family
DX: R00.2 Palpitations (principal); R07.9 Chest pain, unspecified
CPT/HCPCS: 93242; 93244

== ENCOUNTER → 2020-09-21 09:51 | Outpatient (CLI) | payer OTHER, SELFPAY ==
[2018-03-24 17:26] VITALS: BMI 39.6
[2020-09-21 11:47] LABS: COVID19 -Nasal RAPID Negative (Negative)
== END ==
PROVIDERS: Family Provider Nurse Practitioner Family; PCP Nurse Practitioner Family; Visit Provider Physician Assistant
DX: Z01.812 Encounter for preprocedural laboratory examination (principal); Z20.822 Contact with and (suspected) exposure to COVID-19
CPT/HCPCS: 87635

== ENCOUNTER → 2020-09-21 11:06 | Outpatient (CLI) | payer OTHER, SELFPAY ==
[2018-03-24 17:26] VITALS: BMI 39.6
--- NOTE | 2020-09-21 11:08 | DI.ECHO.S_ITS ---
[facility]---------+ [facility] +---------+ : : [address] [place] : : : : [id number] : : : : Phone: [phone] Echocardiogram Report + + :Name: FANTA BAXTER ROCCO Adeel Study Date: 09/21/2020 Height: 69 in : :[facility] ReadingLocation: Weight: 283 lb : : Gender: Female BSA: 2.4 m2 : :: 1975 Age: 45 yrs BP: 131/83 mmHg: :Reason For Study: Chest pain : :Ordering Physician: SYLVIE, : :ROSSY Performed By: Nikhil Samuels : :Referring: ROSSY MERCER : + + Interpretation Summary Normal left ventricle size with ejection fraction 55-60%. Normal right ventricle and both atria. No valvular abnormality. Procedure: A two-dimensional transthoracic echocardiogram with color flow and Doppler was performed. The study quality was technically adequate. There is no prior echocardiogram noted for this patient. The patient was in a tachycardic rhythm during the exam. Left Ventricle: The left ventricle is normal in size and wall thickness. Left ventricular systolic function is normal. The ejection fraction is estimated to be 55-60%. There are no focal wall motion abnormalities. Diastolic function could not be accurately assessed due to tachycardia. Right Ventricle: The right ventricle is normal in size and function. Atria: Both atria are normal in size. There is no Doppler evidence for an interatrial shunt. Mitral Valve: The mitral valve is normal in structure and function. There is no mitral regurgitation noted. Aortic Valve: The aortic valve is normal in structure and function. No aortic regurgitation is present. Tricuspid Valve: The tricuspid valve is normal in structure and function. No tricuspid regurgitation. Pulmonary artery pressures cannot be estimated because of the lack of a measurable TR jet velocity but the IVC suggests a CVP of around 3 mmHg. Pulmonic Valve: The pulmonic valve is normal in structure and function. There is no pulmonic valvular regurgitation. Great Vessels: The aortic root is normal size. The dimensions of the ascending aorta are normal. The IVC is of normal diameter and collapses greater than 50% with a sniff. This suggests a low right atrial pressure of 3 mm Hg. Pericardium/ Pleura There is no pericardial effusion. There is no pleural effusion. MMode/2D Measurements & Calculations LVIDd: 5.3 cm LVOT diam: 1.9 cm LVIDs: 3.6 cm Ao root diam: 3.1 cm FS: 32.1 % asc Aorta Diam: 3.1 cm IVSd: 1.0 cm LVPWd: 0.90 cm LV thorne. diameter/BSA (cm/m^2): 2.2 LV sys. diameter/BSA (cm/m^2): 1.5 LA dimension: 3.7 cm RA long axis: 5.4 cm LA A2 area: 20.2 cm2 LA A4 area: 18.5 cm2 LA length (vol): 4.8 cm LA vol: 65.8 ml LA vol index: 27.5 ml/m2 TAPSE_phl: 2.8 cm Doppler Measurements & Calculations Ao V2 max: 162.0 cm/sec LVOT Max George: 121.0 cm/sec Ao V2 mean: 105.0 cm/sec LV V1 max P.9 mmHg Ao max P.0 mmHg LV V1 VTI: 19.5 cm Ao mean P.0 mmHg JOSE(I,D): 2.6 cm2 Ao V2 VTI: 21.6 cm JOSE(V,D): 2.1 cm2 sev ratio: 0.90 JOSE indexed to BSA (cm^2/m^2): 1.1 Lat Peak E' George: 12.1 cm/sec PA V2 max: 102.0 cm/sec PA V2 mean: 74.0 cm/sec PA mean P.0 mmHg PA pr(Accel): 49.3 mmHg SV(LVOT): 55.3 ml AV VR_phl: 0.75 JOSE(VTI)/BSA_phl: 1.1 Electronically signed by: Jared Johnson on Reading Physician:09/22/2020 02:20 PM
--- NOTE | 2020-09-21 11:08 | DI.US.S_ITS ---
PROCEDURE: US PELVIC COMPLETE INDICATIONS: ABNORMAL BLEEDING, FAMILY HX OVARIAN CANCER TECHNIQUE: Real-time scanning was performed of the pelvic organs, with image documentation. Additional endovaginal scanning was necessary due to incomplete visualization of the adnexal and endometrial structures by transabdominal scanning. COMPARISON: None. FINDINGS: Uterus: The uterine body measures 5.2 x 7.0 x 9.7 centimeters. There is an approximately 1.0 x 0.9 x 0.9 centimeter echogenic lesion in the posterior uterine wall near the mid uterine segment. This may represent a degenerating fibroid. There is also a hypoechoic intramural uterine fibroid in the posterior uterine segment measuring 1.7 x 2.0 x 2.1 centimeters which is consistent with a fibroid. Ovaries: Grossly normal size and appearance of both ovaries, neither well evaluated due to some obscuration by overlying bowel gas. Other: No pathologic free abdominal or pelvic fluid. IMPRESSION: Hypoechoic lesion in the posterior mid uterine segment is consistent with a fibroid. Another hyperechoic lesion is likely a degenerating fibroid also. Dictated by: Thomas Garcia M.D. on 09/21/2020 at 14:34 Approved by: Thomas Garcia M.D. on 09/21/2020 at 14:37
--- NOTE | 2020-09-21 14:20 | PM.TREADMILL ---
Cardiac Stress Test Report Referral & Results Date Patient Seen: 09/21/20 Requesting provider: Jimenez Dos Santos Indication: Chest pain Rest ECG: Nonspecific ST-T segment changes Procedure Note: Today following both written and verbal informed consent, the patient was exercised according to a standard [place] protocol. The patient exercised for a total of 6 minutes 8 seconds achieving a maximum heart rate of 172. Patient's maximum systolic blood pressure was 240. This was an estimated 7.0 MET's. There are no ST-T segment changes Tachycardic at rest and somewhat quickly tachycardic with activity although limited exercise capacity. Function aerobic impairment rates about 15% on the sedentary scale Also her peak blood pressure was excessive immediately post exercise although return to normal/baseline in average amount of time Rare PVCs Impression: Limited exercise capacity but no evidence of ischemia. Somewhat hypertensive in her response to exercise. Clinical correlation suggested Please note: Actual ECG tracings can be found in the PACS system.
== END ==
PROVIDERS: Family Provider Nurse Practitioner Family; PCP Nurse Practitioner Family; Referring Provider Nurse Practitioner Family; Visit Provider Nurse Practitioner Family
DX: Z01.812 Encounter for preprocedural laboratory examination (principal); R07.9 Chest pain, unspecified; N92.0 Excessive and frequent menstruation with regular cycle; N85.9 Noninflammatory disorder of uterus, unspecified; Z20.822 Contact with and (suspected) exposure to COVID-19; Z80.41 Family history of malignant neoplasm of ovary
CPT/HCPCS: 76830; 76856; 87635; 93016; 93017; 93018; 93306

== ENCOUNTER → 2020-10-08 09:41 | Outpatient (CLI) | payer OTHER, SELFPAY ==
[2018-03-24 17:26] VITALS: BMI 39.6
[2020-10-08 10:42] LABS: Add Manual Diff / Slide Review NO; Basophils Absolute Auto 100 /uL (0-100); Basophils Percent Auto 0.7 % (0-2); Eosinophils Absolute Auto 100 /uL (0-450); Eosinophils Percent Auto 0.6 % (2-4); Hematocrit 38.4 % (36-46); Lymphocytes Absolute Auto 1000 /uL (1100-4500); Lymphocytes Percent Auto 12.1 % (25-40); Mean Corpuscular HGB Conc 31.3 % (30-36); Mean Corpuscular Hemoglobin 22.9 PG (26-34); Mean Corpuscular Volume 73.1 fL (80-100); Monocytes Absolute Auto 200 /uL (0-900); Monocytes Percent Auto 2.8 % (3-14); Neutrophils Absolute Auto 7200 /uL (1500-7000); Neutrophils Percent Auto 83.8 % (50-75); Platelet Count 280 X10^3/uL (150-400); Red Blood Cell Count 5.25 X10^6/uL (4.0-5.2); Red Cell Distribution Width 17.7 % (11.6-14.8); White Blood Cell Count 8.6 X10^3/uL (4.5-11.0)
[2020-10-08 11:09] LABS: HEMOLYSIS < 15 (0-50); Iron 29 ug/dL (37-170)
[2020-10-08 11:19] LABS: Percent Iron Saturation 7 % (15-50); Total Iron Binding Capacity 395 ug/dL (265-497); Transferrin 346 mg/dL (206-381)
[2020-10-08 11:40] LABS: TSH w/ Reflex to FT4 0.59 uIU/mL (0.47-4.68)
[2020-10-08 11:43] LABS: Ferritin 7 ng/mL (6-137)
== END ==
PROVIDERS: Family Provider Nurse Practitioner Family; PCP Nurse Practitioner Family; Referring Provider Nurse Practitioner Family; Visit Provider Nurse Practitioner Family
DX: D50.9 Iron deficiency anemia, unspecified (principal); R79.89 Other specified abnormal findings of blood chemistry
CPT/HCPCS: 36415; 82728; 83540; 83550; 84443; 85025

== ENCOUNTER → 2020-10-22 16:00 | Outpatient (CLI) | payer OTHER, SELFPAY ==
[2018-03-24 17:26] VITALS: BMI 39.6
[2020-10-22 17:35] LABS: Add Manual Diff / Slide Review NO; Basophils Absolute Auto 100 /uL (0-100); Basophils Percent Auto 0.5 % (0-2); Eosinophils Absolute Auto 200 /uL (0-450); Eosinophils Percent Auto 1.2 % (2-4); Hematocrit 36.2 % (36-46); Hemoglobin 11.5 g/dL (12.0-16.0); Lymphocytes Absolute Auto 2900 /uL (1100-4500); Lymphocytes Percent Auto 17.6 % (25-40); Mean Corpuscular HGB Conc 31.7 % (30-36); Mean Corpuscular Hemoglobin 23.2 PG (26-34); Mean Corpuscular Volume 73.1 fL (80-100); Monocytes Absolute Auto 700 /uL (0-900); Monocytes Percent Auto 4.3 % (3-14); Neutrophils Absolute Auto 12500 /uL (1500-7000); Neutrophils Percent Auto 76.4 % (50-75); Platelet Count 269 X10^3/uL (150-400); Red Blood Cell Count 4.95 X10^6/uL (4.0-5.2); Red Cell Distribution Width 17.8 % (11.6-14.8); White Blood Cell Count 16.4 X10^3/uL (4.5-11.0)
[2020-10-22 17:39] LABS: Appearance Urine UA SL CLOUDY; Bilirubin Urine UA NEGATIVE (NEGATIVE); Color Urine UA YELLOW; Glucose Urine UA NEGATIVE (Negative); Ketones Urine UA TRACE (NEGATIVE); Leukocyte Esterase Urine UA NEGATIVE (NEGATIVE); Nitrite Urine UA NEGATIVE (Negative); Occult Blood Urine UA 1+ (Negative); Protein Urine UA NEGATIVE (Negative); Specific Gravity Urine UA 1.025 (1.000-1.035); Urobilinogen Urine UA 0.2 E.U./dL (0.2)
[2020-10-22 17:43] LABS: pH Urine UA 5.5 (4.5-8.0)
[2020-10-22 17:47] LABS: Alanine Aminotransferase 19 IU/L (<35); Albumin 3.7 g/dL (3.5-5.0); Albumin Globulin Ratio 1.2 (1.0-2.8); Alkaline Phosphatase 50 U/L (38-126); Aspartate Aminotransferase 17 IU/L (14-36); BUN Creatinine Ratio 14.5 (6-22); Bilirubin Total 0.2 mg/dL (0.2-1.3); Blood Urea Nitrogen 10 mg/dL (7-17); Calcium 8.5 mg/dL (8.4-10.2); Carbon Dioxide 22 mmol/L (22-32); Chloride 104 mmol/L (98-107); Estimated Glomerular Filt Rate > 60.0 mL/min (>60); Globulin 3.1 g/dL (1.7-4.1); Glucose 134 mg/dL (70-100); HEMOLYSIS < 15 (0-50); Magnesium 1.9 mg/dL (1.6-2.3); Potassium 3.5 mmol/L (3.4-5.1); Sodium 136 mmol/L (137-145); Total Protein 6.8 g/dL (6.3-8.2)
[2020-10-22 17:52] LABS: Bacteria Urine Few (2-10); Calcium Oxalate Crystals Urine Moderate; Mucus Urine 2+ (Negative); RBC Urine 0-1/HPF (0-5/HPF); Squamous Epithelial Cell Urine 10-30 /HPF (0-5/HPF); WBC Urine 1-5/HPF (0-5/HPF)
[2020-10-22 17:53] LABS: Culture Indicated Urine Cult Not Indicated; Pregnancy Test Urine Negative (Negative)
== END ==
PROVIDERS: Family Provider Nurse Practitioner Family; PCP Nurse Practitioner Family; Referring Provider Nurse Practitioner Family; Visit Provider Nurse Practitioner Family
DX: R56.9 Unspecified convulsions (principal); Z00.00 Encounter for general adult medical examination without abnormal findings; I10 Essential (primary) hypertension
CPT/HCPCS: 36415; 80053; 81001; 81025; 83735; 85025

== ENCOUNTER → 2020-11-06 16:44 | Outpatient (CLI) | payer OTHER, SELFPAY ==
[2018-03-24 17:26] VITALS: BMI 39.6
[2020-11-06 18:18] LABS: Add Manual Diff / Slide Review NO; Basophils Absolute Auto 0 /uL (0-100); Basophils Percent Auto 0.6 % (0-2); Eosinophils Absolute Auto 200 /uL (0-450); Eosinophils Percent Auto 2.5 % (2-4); Hematocrit 37.2 % (36-46); Hemoglobin 11.8 g/dL (12.0-16.0); Lymphocytes Absolute Auto 2600 /uL (1100-4500); Lymphocytes Percent Auto 30.1 % (25-40); Mean Corpuscular HGB Conc 31.8 % (30-36); Mean Corpuscular Hemoglobin 23.2 PG (26-34); Mean Corpuscular Volume 72.8 fL (80-100); Monocytes Absolute Auto 600 /uL (0-900); Monocytes Percent Auto 7.2 % (3-14); Neutrophils Absolute Auto 5200 /uL (1500-7000); Neutrophils Percent Auto 59.6 % (50-75); Platelet Count 298 X10^3/uL (150-400); Red Blood Cell Count 5.11 X10^6/uL (4.0-5.2); Red Cell Distribution Width 17.7 % (11.6-14.8); White Blood Cell Count 8.8 X10^3/uL (4.5-11.0)
[2020-11-06 18:41] LABS: Appearance Urine UA SL CLOUDY; Bilirubin Urine UA 1+ (NEGATIVE); Glucose Urine UA NEGATIVE (Negative); Ketones Urine UA TRACE (NEGATIVE); Leukocyte Esterase Urine UA TRACE (NEGATIVE); Nitrite Urine UA NEGATIVE (Negative); Occult Blood Urine UA 3+ (Negative); Protein Urine UA 3+ (Negative); Specific Gravity Urine UA >=1.030 (1.000-1.035); Urobilinogen Urine UA 0.2 E.U./dL (0.2)
[2020-11-06 18:42] LABS: Color Urine UA OTHER
[2020-11-06 18:55] LABS: Amorphous Sediment Urine 1+; Bacteria Urine Occasional (0-1); Culture Indicated Urine Specimen Cultured; Ictotest Urine Negative (Negative); Mucus Urine 1+ (Negative); RBC Urine >100/HPF (0-5/HPF); Squamous Epithelial Cell Urine 1-5 /HPF (0-5/HPF); WBC Urine 1-5/HPF (0-5/HPF)
== END ==
PROVIDERS: PCP Nurse Practitioner Family; Referring Provider Nurse Practitioner Family; Visit Provider Nurse Practitioner Family
DX: D50.9 Iron deficiency anemia, unspecified (principal); D72.819 Decreased white blood cell count, unspecified; R82.90 Unspecified abnormal findings in urine
CPT/HCPCS: 36415; 81001; 85025; 87077; 87086

== ENCOUNTER → 2020-11-18 16:11 | Outpatient (CLI) | payer OTHER, SELFPAY ==
[2018-03-24 17:26] VITALS: BMI 39.6
[2020-11-18 16:37] LABS: Add Manual Diff / Slide Review NO; Basophils Absolute Auto 100 /uL (0-100); Basophils Percent Auto 1.1 % (0-2); Eosinophils Absolute Auto 200 /uL (0-450); Eosinophils Percent Auto 1.9 % (2-4); Hematocrit 36.4 % (36-46); Hemoglobin 11.5 g/dL (12.0-16.0); Lymphocytes Absolute Auto 3000 /uL (1100-4500); Lymphocytes Percent Auto 28.2 % (25-40); Mean Corpuscular HGB Conc 31.7 % (30-36); Mean Corpuscular Hemoglobin 23.1 PG (26-34); Mean Corpuscular Volume 72.8 fL (80-100); Monocytes Absolute Auto 800 /uL (0-900); Monocytes Percent Auto 7.9 % (3-14); Neutrophils Absolute Auto 6500 /uL (1500-7000); Neutrophils Percent Auto 60.9 % (50-75); Platelet Count 293 X10^3/uL (150-400); Red Cell Distribution Width 17.5 % (11.6-14.8); White Blood Cell Count 10.7 X10^3/uL (4.5-11.0)
[2020-11-18 16:51] LABS: Alanine Aminotransferase 18 IU/L (<35); Albumin Globulin Ratio 1.3 (1.0-2.8); Alkaline Phosphatase 68 U/L (38-126); Aspartate Aminotransferase 23 IU/L (14-36); BUN Creatinine Ratio 11.7 (6-22); Bilirubin Total 0.2 mg/dL (0.2-1.3); Blood Urea Nitrogen 9 mg/dL (7-17); Calcium 9.2 mg/dL (8.4-10.2); Carbon Dioxide 27 mmol/L (22-32); Chloride 105 mmol/L (98-107); Estimated Glomerular Filt Rate > 60.0 mL/min (>60); Globulin 3.2 g/dL (1.7-4.1); Glucose 96 mg/dL (70-100); HEMOLYSIS < 15 (0-50); Lactate Dehydrogenase 419 U/L (313-618); Sodium 138 mmol/L (137-145); Total Protein 7.2 g/dL (6.3-8.2)
[2020-11-18 16:56] LABS: HEMOLYSIS < 15 (0-50); Iron 37 ug/dL (37-170)
[2020-11-18 17:01] LABS: Appearance Urine UA CLEAR; Bilirubin Urine UA NEGATIVE (NEGATIVE); Color Urine UA YELLOW; Glucose Urine UA NEGATIVE (Negative); Ketones Urine UA NEGATIVE (NEGATIVE); Leukocyte Esterase Urine UA NEGATIVE (NEGATIVE); Nitrite Urine UA NEGATIVE (Negative); Occult Blood Urine UA TRACE-LYSED (Negative); Protein Urine UA NEGATIVE (Negative); Specific Gravity Urine UA 1.025 (1.000-1.035); Urobilinogen Urine UA 0.2 E.U./dL (0.2)
[2020-11-18 17:04] LABS: pH Urine UA 5.5 (4.5-8.0)
[2020-11-18 17:06] LABS: Percent Iron Saturation 10 % (15-50); Total Iron Binding Capacity 385 ug/dL (265-497); Transferrin 314 mg/dL (206-381)
[2020-11-18 17:21] LABS: RBC Urine 0-1/HPF (0-5/HPF); Squamous Epithelial Cell Urine 10-30 /HPF (0-5/HPF); Transitional Epi Cells Urine 1-5/HPF (0-5/HPF); WBC Urine 0-1/HPF (0-5/HPF)
[2020-11-18 17:22] LABS: Bacteria Urine Occasional (0-1); Culture Indicated Urine Cult Not Indicated; Mucus Urine 2+ (Negative)
[2020-11-18 17:26] LABS: Ferritin 6 ng/mL (6-137)
[2020-11-18 17:58] LABS: Vitamin B12 289 pg/mL (239-931)
== END ==
PROVIDERS: Internal Medicine Medical Oncology; PCP Nurse Practitioner Family; Referring Provider Nurse Practitioner Family; Visit Provider Nurse Practitioner Family
DX: D50.9 Iron deficiency anemia, unspecified (principal); R82.71 Bacteriuria
CPT/HCPCS: 36415; 80053; 81001; 82607; 82728; 82746; 83540; 83550; 83615; 85025

== ENCOUNTER → 2020-11-30 14:52 | Outpatient (CLI) | payer OTHER, SELFPAY ==
[2018-03-24 17:26] VITALS: BMI 39.6
[2020-11-30 17:15] LABS: COVID19 -Nasal RAPID Negative (Negative)
== END ==
PROVIDERS: PCP Nurse Practitioner Family; Visit Provider Obstetrics & Gynecology
DX: Z20.822 Contact with and (suspected) exposure to COVID-19 (principal); Z01.812 Encounter for preprocedural laboratory examination
CPT/HCPCS: 87635

== ENCOUNTER 2020-12-01 12:18 | Day surgery (SDC) | payer OTHER, SELFPAY ==
[2018-03-24 17:26] VITALS: BMI 39.6
[2020-11-27 09:32] VITALS: BMI 40.1
[2020-12-01] VITALS (15 sets, daily range): BP systolic 111–202; BP diastolic 65–92; PULSE 80–97; RESP 12–24; TEMP 36.2–36.9; O2SAT 92–99; BMI 40.1
--- NOTE | 2020-12-01 | PATH_ITS ---
[facility] Accession Number: [id number] . 01 Material submitted: . uterus - UTERUS . 02 Diagnosis: Uterus, Total Vaginal Hysterectomy (Weight 200 grams): Cervix with no significant histomorphologic abnormality. Endocervix with a benign polyp (15 mm); negative for glandular dysplasia or malignancy. Secretory endometrium; negative for glandular hyperplasia, cytologic atypia or malignancy. Myometrium involved by multiple leiomyomas (4-25 mm); negative for atypia or malignancy. Uterine serosa with no significant histomorphologic abnormality. MRV 12/03/2020 1150 Local . 02 Electronically signed: . Grace De La Rosa MD, Pathologist NPI- [id number] . 01 Gross description: . The specimen is received in formalin, labeled uterus and consists of a fragmented uterus and cervix weighing 200 grams and measuring 13.0 x 9.0 x 5.0 cm in aggregate. The serosa is cuenca-pink and smooth. The cuenca wrinkled ectocervix measures 4.0 x 3.2 cm and there is a 1.0 x 0.3 cm os. Sectioning reveals a cuenca herringbone endocervical mucosa with a 1.5 x 0.5 x 0.4 cm possible polyp. The cuenca-pink endometrium measures 0.1 cm in thickness. The myometrium is cuenca-pink and trabeculated, measuring 2.8 cm in thickness. There are multiple cuenca-white whorled leiomyomata ranging from 0.4-2.5 cm with no areas of hemorrhage, necrosis or cystic degeneration. Billet Shearer sections are submitted. . A1-A2: Cervix, to include candidate polyp, entirely submitted. A3-A6: Billet Shearer uterus, to include leiomyomata. (EA:[id number]) /MRV 12/02/[address] [place] [address] . Pathologist provided ICD-10: D50.9, N92.1 . 02 CPT . 124091 Performed at: 01 [facility] [address] [id number] MD Raffi Valadez MD Phone: [phone] Performed at: [id number] [place], [place] [id number] MD Yolanda Wilson MD Phone: [phone]
[2020-12-01] MEDS: LACTATED RINGERS 1,000 ML 100 ML IV ×2 (13:16→17:26)
--- NOTE | 2020-12-01 13:31 | PM.PREOP ---
Pre-operative Note COVID-19 COVID-19 status: Negative Result date/Date tested (Pos, Neg/Pending): 11/30/20 Interval Note History & Physical reviewed/Exam performed by Physician: Yes Changes to H&P: No
[2020-12-01] MEDS: CEFAZOLIN 1 GM VIAL 2 GM IV (14:39)
--- NOTE | 2020-12-01 14:54 | SUR.OPER ---
Lithotomy on padded OR bed, head on pillow, arms secured on padded arm boards at <90 degrees abduction. Legs secured in padded yellow fins stirrups.
[2020-12-01] MEDS: BUPIVACAINE 0.25% (PF) VIAL 30 ML INJ (15:09)
[2020-12-01] MEDS: EPINEPHrine 1 MG/ML 0.15 MG INJ (15:10)
--- NOTE | 2020-12-01 16:00 | PM.OP.1 ---
Operative Date/Time/Diagnoses Date of procedure: 12/01/20 Time of procedure: 16:00 Pre-op diagnosis: menorrhagia and dysmenorrhea Post-op diagnosis: same Procedure & Clinicians Procedure: total vaginal hysterectomy Same procedure as scheduled: Yes Indications: menorrhagia and dysmenorrhea Surgeon: Fiona Christensen Master Automotive Technician: Ayaan Rolle Click Yes if Unassisted: No Anesthesia Type: General Operative Notes Findings: enlarged uterus, normal tubes and ovaries Closure Type: primary Specimen(s): other ( uterus) Estimated Blood Loss (mL): 25 Blood products transfused: none Procedure in detail: Patient was brought to the operating room where she was placed in yellowfin stirrups and prepped and draped in the usual sterile fashion. A 20 point check system was reviewed prior to the beginning of the case. Pulsatile stockings were in place and functional throughout the case. Warming was in place. 2 g of Ancef were in prior to beginning of the case. A Chatman catheter was placed. A single-tooth tenaculum was placed on the posterior lip of the cervix and a colpotomy incision was made. The peritoneum was sutured to the posterior vaginal wall. The uterosacral ligaments were clamped cut and ligated with 0 Vicryl suture which was used throughout the rest the case unless otherwise indicated. Bites were taken of the cardinal ligament. A scalpel was used to circumscribe the cervix and the bladder pushed superiorly. The bladder pillars were clamped cut and ligated. Keeping the bladder pushed superiorly sequential bites were taken of the cardinal and broad ligaments with the LigaSure. Anterior colpotomy incision was made and the bladder held away from the uterus. The rest of the attachments of the uterus including the broad ligament and the utero-ovarian ligaments were clamped and ligated. The uterus was removed intact. the perineum was closed with a pursestring suture of 2 0 Vicryl. The vaginal cuff was closed with figure of 8 0 Vicryl sutures. The Chatman catheter was removed and the patient went to recovery room in stable condition. Counts of instruments and sponges were correct. Complications: none Post-operative Condition: stable Disposition: Acute Care Plan for aftercare: home when awake and stable
[2020-12-01] MEDS: LORazepam 2 MG/ML INJ 0.25 MG IV ×2 (16:20→16:25)
[2020-12-01] MEDS: ONDANSETRON 4 MG/2 ML INJ IV (16:20)
[2020-12-01] MEDS: fentaNYL 100 MCG/2 ML INJ IV (16:25)
[2020-12-01] MEDS: KETOROLAC 30 MG/ML VIAL IV ×2 (17:26→23:10)
[2020-12-01] MEDS: OXYCODONE IR 5 MG TABLET PO (18:20)
[2020-12-01] MEDS: ACETAMINOPHEN 325 MG TABLET 650 MG PO (19:33)
[2020-12-01] MEDS: HYDROMORPHONE 2 MG TABLET PO (20:26)
[2020-12-01] MEDS: DOCUSATE 100 MG CAPSULE 200 MG PO (20:27)
[2020-12-02] VITALS: O2SAT 96
[2020-12-02] MEDS: HYDROMORPHONE 2 MG TABLET PO ×5 (00:01→11:07)
[2020-12-02] MEDS: LACTATED RINGERS 1,000 ML 100 ML IV (03:21)
[2020-12-02] MEDS: ACETAMINOPHEN 325 MG TABLET 650 MG PO ×2 (03:23→10:02)
[2020-12-02] MEDS: KETOROLAC 30 MG/ML VIAL IV ×2 (05:05→11:23)
[2020-12-02 05:15] VITALS: BP 148/76; PULSE 73; RESP 18; TEMP 36.6; O2SAT 98
[2020-12-02 05:51] LABS: Add Manual Diff / Slide Review NO; Basophils Absolute Auto 0 /uL (0-100); Basophils Percent Auto 0.1 % (0-2); Eosinophils Absolute Auto 0 /uL (0-450); Hematocrit 31.8 % (36-46); Hemoglobin 9.8 g/dL (12.0-16.0); Lymphocytes Absolute Auto 900 /uL (1100-4500); Lymphocytes Percent Auto 7.4 % (25-40); Mean Corpuscular HGB Conc 30.9 % (30-36); Mean Corpuscular Hemoglobin 22.3 PG (26-34); Mean Corpuscular Volume 72.1 fL (80-100); Monocytes Absolute Auto 400 /uL (0-900); Monocytes Percent Auto 3.5 % (3-14); Neutrophils Absolute Auto 10500 /uL (1500-7000); Platelet Count 246 X10^3/uL (150-400); Red Cell Distribution Width 17.3 % (11.6-14.8); White Blood Cell Count 11.8 X10^3/uL (4.5-11.0)
[2020-12-02 07:00] VITALS: O2SAT 98
[2020-12-02 08:36] VITALS: BP 136/78; PULSE 78; RESP 17; TEMP 36.7; O2SAT 97
--- NOTE | 2020-12-02 08:43 | PM.DS.1 ---
History of Present Illness History of Present Illness Date Patient Seen: 12/02/20 Time Patient Seen: 08:43 Chief complaint: TOTAL VAGINAL HYSTERECTOMY *OPB* Narrative: Patient underwent a total vaginal hysterectomy on 12/01/2020. Discharge Providers Provider Discharge Date: 12/02/20 Primary care physician: BOBBI Merlos Discharge provider: Fiona Christensen MD Summary Hospital Course Discharge Diagnosis: Menorrhagia and dysmenorrhea status post vaginal hysterectomy Hospital Course: Patient underwent a total vaginal hysterectomy on 12/01/2020. Patient initially was hoping she could go home however her pain control kept her in the hospital overnight. She denies nausea. She is urinating. She is ambulatory. She is passing gas. She does have pain but feels she will be able to tolerate it when she is discharged home. Status at Discharge Cognitive/behavioral status at discharge: oriented Functional status at discharge: independent ambulation Overall status at discharge: patient is progressing back to baseline Time Spent with Patient Time spent: Less than 30 minutes Exam Vital Signs (past 8 hours): - 12/02/20 05:15 Temperature 97.8 F Pulse Rate 73 Respiratory Rate 18 Blood Pressure 148/76 H Pulse Oximetry 98 Oxygen Delivery Method Room Air Oxygen Flow Rate 0 Narrative Exam Narrative: Patient's abdomen is soft, nontender. Minimal vaginal bleeding. Extremities without edema and nontender. Objective Labs Result Diagrams: 12/02/20 05:00 Labs: Laboratory Results - last 24 hr 12/02/20 05:00 WBC 11.8 H RBC 4.40 Hgb 9.8 L Hct 31.8 L MCV 72.1 L MCH 22.3 L MCHC 30.9 RDW 17.3 H Plt Count 246 Neut % (Auto) 89.0 H Lymph % (Auto) 7.4 L [place] % (Auto) 3.5 Eos % (Auto) 0.0 L Baso % (Auto) 0.1 Neut # (Auto) 49866 H Lymph # (Auto) 900 L [place] # (Auto) 400 Eos # (Auto) 0 Baso # (Auto) 0 PFSH Medical History (Updated 11/27/20 @ 09:54 by Lorene Moore RN) Anxiety (02/2020) Asthma Chest pain (02/2020) Chicken pox (~1979) Depression (02/2020) Essential hypertension (06/2020) Heavy menstrual period Hemorrhoid History of asthma (~1984) History of Crohn's disease History of gastric ulcer History of kidney stones (~2016) Iron deficiency anemia Irritable bowel syndrome Measles Mumps Nonsurgical dumping syndrome PAC (premature atrial contraction) Painful menstrual periods Palpitations (02/2020) PVCs (premature ventricular contractions) Rheumatic fever Rubella Seizure (09/2020) SVT (supraventricular tachycardia) Tinnitus (~2013) Surgical History (Updated 12/01/20 @ 15:56 by Fiona Christensen MD) Anesthesia History of tonsillectomy and adenoidectomy (~1979) History of uterine scar from previous surgery Status post (~09/08/02) Family History Mother Hypertension COPD (chronic obstructive pulmonary disease) Neuropathy Grandmother Cancer Grandfather Cancer Grandfather Cancer Grandmother History of heart disease Other Family history non-contributory Social History household members: spouse and none Smoking Status: Former smoker Tobacco: How many years used: 5 second hand exposure: No alcohol intake: current substance use type: marijuana Discharge Assessment & Plan Assessment and Plan Assessment: Status post vaginal hysterectomy who is stable. Plan of Treatment: Discharge home to be followed up in 2 weeks. Routine precautions reviewed with the patient. Discharge Plan Discharge Plan Patient Disposition: Home Discharge orders & Medications Discharge Orders: Discharge (Order); Ordered 12/02/20 Ordered By: Fiona Christensen Prescriptions: New hydromorphone [Dilaudid] 4 mg tablet 4 mg PO Q4-6H PRN (Reason: pain) Qty: 30 RF: 0 Continued tramadol 50 mg tablet 50 mg PO BID PRN (Reason: pain) Qty: 10 RF: 0 Remicade 100 mg recon soln 100 mg IV DIRECTED RF: 0 (DME) blood pressure monitor [Blood Pressure Kit] Kit See Rx Instructions .Route Qty: 1 RF: 0 Combivent Respimat 20-100 mcg/actuation mist 1 puff inhalation Q6H Qty: 4 RF: 3 losartan 50 mg tablet 50 mg PO DAILY Qty: 90 RF: 1 sertraline 100 mg tablet 100 mg PO DAILY Qty: 90 RF: 0 Discontinued promethazine 12.5 mg suppository 12.5 mg OR Q6H PRN (Reason: nausea and vomiting) Qty: 12 RF: 0 medroxyprogesterone 10 mg tablet 10 mg PO DAILY Qty: 10 RF: 0 gi cocktail - Maalox 30ml, visc lido 15ml 45 ml PO ONCE PRN (Reason: abdominal discomfort) Qty: 350 RF: 0 ondansetron HCl [Zofran] 4 mg tablet 4 mg PO Q6H PRN (Reason: nausea and vomiting) Qty: 30 RF: 0 Follow up/Referrals: Jimenez Dos Santos ARNP [Primary Care Provider] - Finoa Christensen MD [Physician] - 12/17/20 11:30 am (appt:12/17 @ 11:[address] christensen please arrive 15 min prior to your scheduled appointment time ) Diet/Activity/Treatments Diet: Regular Activity: Nothing in vagina for 6 weeks. No lifting over 20 lb Skin/Wound/Dressing Care Report to your healthcare provider any signs of infection, such as:: chills, fever and increased pain Visit Report/Discharge Packet Instructions: DI for Hysterectomy Discharge Data Primary Care Provider: Jimenez Dos Santos Attending Provider: Fiona Christensen
[2020-12-02] MEDS: DOCUSATE 100 MG CAPSULE 200 MG PO (08:46)
[2020-12-02] MEDS: SERTRALINE 50 MG TABLET 100 MG PO (08:46)
[2020-12-02 08:47] VITALS: BP 136/78
[2020-12-02] MEDS: LOSARTAN 50 MG TABLET PO (08:47)
[2020-12-02] MEDS: INFLUENZA VACCINE QIV 0.5 ML SYRINGE IM (10:14)
--- NOTE | 2020-12-02 11:19 | CM.DANOTE ---
Patient is a 45 yo female who was admitted on 12/01/20 for Total Vaginal Hysterectomy. Pt has [employer] for insurance and her PCP is Jimenez Dos Santos. EMR was reviewed. Per OBGYN, pt tolerated surgical intervention yesterday and now medically stable to d/c home with no identified barriers to discharge. Per RN, pt is independent in the room and has voided and no concerns at this time. Spouse to provide transport home today. Pt was last admitted at [facility] in Mar 2018 and was able to d/c home with family and no needs. No bedside assessment at this time due to triage needs and no barriers identified. Plan: Patient to d/c home via spouse POV and outpt f/u and no SW needs at this time. RAS Cavanaugh Discharge Planning/Care Management CM Discharge Assessment Start: 12/02/20 11:17 Freq: Status: Active Protocol: Document 12/02/20 11:18 BF (Rec: 12/02/20 11:19 BF [id number]) Discharge Planning Assessment Assigned Arboriculturist RAS Lal DPOA/Assigned Designee Name informally spouse Contact Information [phone] Advance Directives? No Advance Directives on File No History Provided By Patient,Medical Record Has Patient been admitted in last 30 No days? Prior Living Arrangements House Household Members spouse Type of transporation used prior to Drives own vehicle admit Independent with ADL's Yes Is patient alert and oriented? Yes Barriers to Discharge No Discharge Plan Home Transportation Arrangement Spouse Referrals Initiated None needed Review Status In Process Please Provide Date Initial DC 12/02/20 Assessment Was Performed Next Review Type Continued Stay Review Pre-Anesthesia Assessment Start: 11/27/20 09:32 Freq: Status: Active Protocol: Document 11/27/20 09:32 CAB (Rec: 11/27/20 09:56 CAB [id number]) Pre-Anesthesia Assessment Patient Information Reviewed Via Chart Review Comment COVID screen @ 11/30/20 Primary Care Provider Jimenez Dos Santos Seen Specialist in Last 12 Months Yes Specialist Seen Lithograph Press Operator Tinware,Oncologist Primary Language Hebrew Preferred Language Hebrew Instructor Product Inspection Required No Height 177.8 cm Weight 127.006 kg Body Mass Index (BMI) 40.1 Hx Anesthesia Reactions No Anesthesia Review Requested No Chlorine Operator No alcohol intake current alcohol intake frequency 0-2 drinks per day Smoking Status Former smoker how long ago did patient quit smoking <10 years Substance Use Type marijuana History of Falling (Recent or History of No ) Patient is completely paralyzed or No completely immobile Mental Status Oriented to own ability Hx Sleep Apnea No Currently Taking a Beta Bernadine No Hx Chest Pain Yes: Echo @ [facility] 09/21/20-normal Anti-Coagulant Therapy No Has a Truck Driving Instructor No Cardiac Testing No Hx Pacemaker/ICD No Pacemaker Rep Required? No Cardiac Clearance Received Not Applicable Urinary Catheter Present No Hx Urinary Self Catheterization No Diabetes No Patient No Lactating No Marital Status Lives With spouse,none Patient Discharge Plan Description Return Home Do You Have Any Spiritual Beliefs That No May Affect Your HC Choices? Do You Have Any Cultural Practices That No May Affect Your HC Choices? Emergency Contact Name Veena Blanc (daughter) or Jett Rodriguez (ex spouse) [phone] Emergency Contact Advance Directives? No Power of Pulmonary Fellow No
--- NOTE | 2020-12-02 12:13 | PC.NURSE ---
Pt reports moderate to severe pain to lower abdomen; PO Tylenol and PO diluadid, IV toradol administered; pt denies nausea and sob; passing gas
--- NOTE | 2020-12-02 12:14 | PC.NURSE ---
Pt is dressed and ready for discharge home with Spouse. Provided fresh ice pack and Pt recently had pain meds. Went over d/c instructions with Pt and Spouse-discussed d/c meds, time of last dose, reviewed stroke education, s/s of infection and when to call MD, no lifting over 20lbs, drink plenty of fluids to prevent constipation or dehydration, no driving while on narcotics. Pt to follow up as scheduled. Pt and Spouse denied further questions and were taken out to pov by RN to POV with Spouse and all belongings.
== END 2020-12-02 12:19 | disposition home or self-care (01) ==
LOC: OR 12:20 → AC 12:20
PROVIDERS: PCP Nurse Practitioner Family; Referring Provider Specialist; Visit Provider Specialist
PROC: (CPT 58260; principal; 2020-12-01 13:30)
DX: N84.1 Polyp of cervix uteri (principal); K50.90 Crohn's disease, unspecified, without complications; D50.9 Iron deficiency anemia, unspecified; I10 Essential (primary) hypertension; Z23 Encounter for immunization; D25.9 Leiomyoma of uterus, unspecified
CPT/HCPCS: 58260; 36415; 81025; 85025; 90471; 90656; J0171; J0690; J1100; J1170; J1885; J2060; J2250; J2405; J2704; J3010; Q2038

== ENCOUNTER → 2021-03-25 15:22 | Outpatient (CLI) | payer OTHER, SELFPAY ==
[2020-12-01 17:35] VITALS: BMI 40.1
[2021-03-25 16:33] LABS: C-Reactive Protein Quant < 0.5 mg/dL (<1.0)
[2021-03-25 16:37] LABS: Erythrocyte Sedimentation Rate 4 MM/HR (0-20)
[2021-03-25 19:38] LABS: Hepatitis B Surface Antigen NEGATIVE s/c (NEGATIVE)
[2021-03-26 03:38] LABS: Hepatitis B Core Antibody Negative (Negative)
[2021-03-31 13:56] LABS: Clostridium Difficile Tox PCR Negative for C. diff (Negative)
[2021-04-02 09:01] LABS: QuantiFERON Mitogen Value >10.00 IU/mL (.); QuantiFERON TB Gold Plus Negative (Negative); QuantiFERON TB1 Ag Value 0.09 IU/mL (.); QuantiFERON TB2 Ag Value 0.08 IU/mL (.)
[2021-04-02 14:12] LABS: Calprotectin, Stool 90 ug/g (0-120)
== END ==
PROVIDERS: PCP Nurse Practitioner Family; Referring Provider Internal Medicine; Visit Provider Internal Medicine
DX: K50.018 Crohn's disease of small intestine with other complication (principal)
CPT/HCPCS: 36415; 80299; 82397; 83993; 85651; 86140; 86480; 86704; 87340; 87493

== ENCOUNTER → 2021-06-11 13:10 | Outpatient (CLI) | payer OTHER, SELFPAY ==
[2021-06-11 10:20] VITALS: BMI 40.1
[2021-06-11 14:13] LABS: Add Manual Diff / Slide Review NO; Basophils Absolute Auto 100 /uL (0-100); Basophils Percent Auto 0.8 % (0-2); Eosinophils Absolute Auto 200 /uL (0-450); Eosinophils Percent Auto 2.1 % (2-4); Hematocrit 39.9 % (36-46); Hemoglobin 13.3 g/dL (12.0-16.0); Lymphocytes Absolute Auto 1700 /uL (1100-4500); Lymphocytes Percent Auto 22.3 % (25-40); Mean Corpuscular HGB Conc 33.3 % (30-36); Mean Corpuscular Hemoglobin 27.6 PG (26-34); Mean Corpuscular Volume 82.9 fL (80-100); Monocytes Absolute Auto 400 /uL (0-900); Monocytes Percent Auto 4.8 % (3-14); Neutrophils Absolute Auto 5300 /uL (1500-7000); Platelet Count 246 X10^3/uL (150-400); Red Blood Cell Count 4.81 X10^6/uL (4.0-5.2); Red Cell Distribution Width 15.4 % (11.6-14.8); White Blood Cell Count 7.6 X10^3/uL (4.5-11.0)
[2021-06-11 14:21] LABS: HEMOLYSIS < 15 (0-50); Iron 45 ug/dL (37-170)
[2021-06-11 14:23] LABS: Alanine Aminotransferase 23 IU/L (<35); Albumin Globulin Ratio 1.3 (1.0-2.8); Alkaline Phosphatase 72 U/L (38-126); Aspartate Aminotransferase 27 IU/L (14-36); BUN Creatinine Ratio 17.7 (6-22); Bilirubin Total 0.5 mg/dL (0.2-1.3); Blood Urea Nitrogen 11 mg/dL (7-17); Calcium 9.1 mg/dL (8.4-10.2); Carbon Dioxide 25 mmol/L (22-32); Chloride 104 mmol/L (98-107); Estimated Glomerular Filt Rate > 60 mL/min (>60); Globulin 3.2 g/dL (1.7-4.1); Glucose 80 mg/dL (70-100); HEMOLYSIS < 15 (0-50); Potassium 4.5 mmol/L (3.4-5.1); Sodium 140 mmol/L (137-145); Total Protein 7.2 g/dL (6.3-8.2)
[2021-06-11 14:32] LABS: Percent Iron Saturation 22 % (15-50); Total Iron Binding Capacity 209 ug/dL (265-497); Transferrin 150 mg/dL (206-381)
[2021-06-11 15:12] LABS: Vitamin B12 864 pg/mL (239-931)
== END ==
PROVIDERS: PCP Family Medicine; Referring Provider Family Medicine; Visit Provider Family Medicine
DX: D50.0 Iron deficiency anemia secondary to blood loss (chronic) (principal); K50.018 Crohn's disease of small intestine with other complication
CPT/HCPCS: 36415; 80053; 82607; 83540; 83550; 85025

== ENCOUNTER → 2022-05-24 17:03 | Outpatient (CLI) | payer OTHER, SELFPAY ==
[2021-06-11 10:20] VITALS: BMI 40.1
[2022-05-24 17:30] LABS: Add Manual Diff / Slide Review NO; Basophils Absolute Auto 100 /uL (0-100); Basophils Percent Auto 1.1 % (0-2); Eosinophils Absolute Auto 200 /uL (0-450); Eosinophils Percent Auto 2.6 % (2-4); Hematocrit 39.7 % (36-46); Hemoglobin 13.2 g/dL (12.0-16.0); Lymphocytes Absolute Auto 2200 /uL (1100-4500); Lymphocytes Percent Auto 32.8 % (25-40); Mean Corpuscular HGB Conc 33.4 % (30-36); Mean Corpuscular Hemoglobin 28.2 PG (26-34); Mean Corpuscular Volume 84.5 fL (80-100); Monocytes Absolute Auto 300 /uL (0-900); Monocytes Percent Auto 4.7 % (3-14); Neutrophils Absolute Auto 4000 /uL (1500-7000); Neutrophils Percent Auto 58.8 % (50-75); Platelet Count 222 X10^3/uL (150-400); Red Blood Cell Count 4.69 X10^6/uL (4.0-5.2); Red Cell Distribution Width 14.3 % (11.6-14.8); White Blood Cell Count 6.8 X10^3/uL (4.5-11.0)
[2022-05-24 17:45] LABS: HEMOLYSIS < 15 (0-50); Iron 60 ug/dL (37-170)
[2022-05-24 17:46] LABS: Alanine Aminotransferase 18 IU/L (<35); Albumin 3.8 g/dL (3.5-5.0); Albumin Globulin Ratio 1.2 (1.0-2.8); Alkaline Phosphatase 48 U/L (38-126); Aspartate Aminotransferase 21 IU/L (14-36); BUN Creatinine Ratio 13.6 (6-22); Bilirubin Total 0.4 mg/dL (0.2-1.3); Blood Urea Nitrogen 8 mg/dL (7-17); Calcium 8.8 mg/dL (8.4-10.2); Carbon Dioxide 30 mmol/L (22-32); Chloride 103 mmol/L (98-107); Estimated Glomerular Filt Rate > 60 mL/min (>60); Globulin 3.3 g/dL (1.7-4.1); Glucose 89 mg/dL (70-100); HEMOLYSIS < 15 (0-50); Potassium 3.8 mmol/L (3.4-5.1); Sodium 138 mmol/L (137-145); Total Protein 7.1 g/dL (6.3-8.2)
[2022-05-24 18:23] LABS: Percent Iron Saturation 24 % (15-50); Total Iron Binding Capacity 250 ug/dL (265-497); Transferrin 199 mg/dL (206-381)
[2022-05-24 18:34] LABS: Vitamin B12 347 pg/mL (239-931)
== END ==
PROVIDERS: PCP Family Medicine; Referring Provider Family Medicine; Visit Provider Family Medicine
DX: D50.9 Iron deficiency anemia, unspecified (principal); F32.9 Major depressive disorder, single episode, unspecified; F41.9 Anxiety disorder, unspecified; K50.90 Crohn's disease, unspecified, without complications; Z90.3 Acquired absence of stomach [part of]
CPT/HCPCS: 36415; 80053; 82306; 82607; 83540; 83550; 85025

== ENCOUNTER 2022-09-08 17:40 | Emergency (ER) | payer OTHER, SELFPAY ==
[2021-06-11 10:20] VITALS: BMI 40.1
[2022-09-08 17:52] VITALS: BP 133/70; PULSE 70; RESP 16; TEMP 36.8; O2SAT 99; BMI 27.1
[2022-09-08] MEDS: ONDANSETRON 4 MG/2 ML INJ IV ×2 (18:21→19:51)
[2022-09-08 18:25] LABS: Add Manual Diff / Slide Review NO; Basophils Absolute Auto 100 /uL (0-100); Basophils Percent Auto 0.8 % (0-2); Eosinophils Absolute Auto 400 /uL (0-450); Eosinophils Percent Auto 5.1 % (2-4); Hematocrit 43.2 % (36-46); Hemoglobin 14.6 g/dL (12.0-16.0); Lymphocytes Absolute Auto 2200 /uL (1100-4500); Mean Corpuscular HGB Conc 33.9 % (30-36); Mean Corpuscular Hemoglobin 28.6 PG (26-34); Mean Corpuscular Volume 84.4 fL (80-100); Monocytes Absolute Auto 500 /uL (0-900); Monocytes Percent Auto 6.5 % (3-14); Neutrophils Absolute Auto 4400 /uL (1500-7000); Neutrophils Percent Auto 58.6 % (50-75); Platelet Count 205 X10^3/uL (150-400); Red Blood Cell Count 5.12 X10^6/uL (4.0-5.2); White Blood Cell Count 7.5 X10^3/uL (4.5-11.0)
[2022-09-08 18:55] LABS: Alanine Aminotransferase 22 IU/L (<35); Albumin 4.5 g/dL (3.5-5.0); Albumin Globulin Ratio 1.2 (1.0-2.8); Alkaline Phosphatase 61 U/L (38-126); Aspartate Aminotransferase 32 IU/L (14-36); BUN Creatinine Ratio 19.7 (6-22); Bilirubin Total 0.9 mg/dL (0.2-1.3); Blood Urea Nitrogen 12 mg/dL (7-17); Carbon Dioxide 25 mmol/L (22-32); Chloride 103 mmol/L (98-107); Estimated Glomerular Filt Rate > 60 mL/min (>60); Globulin 3.9 g/dL (1.7-4.1); Glucose 88 mg/dL (70-100); HEMOLYSIS 19 (0-50); Lipase 87 U/L (23-300); Potassium 3.7 mmol/L (3.4-5.1); Sodium 135 mmol/L (137-145); Total Protein 8.4 g/dL (6.3-8.2)
--- NOTE | 2022-09-08 19:24 | DI.CT.S_ITS ---
PROCEDURE: CT ABDOMEN PELVIS W CON INDICATIONS: History of Crohn's and multiple bowel resections with pain TECHNIQUE: After the administration of IV contrast, axial sections were acquired from the lung bases to the pubic symphysis. Coronal and sagittal reformats were performed. For radiation dose reduction, the following was used: automated exposure control, adjustment of mA and/or kV according to patient size. COMPARISON: [facility], CT, CT ABDOMEN PELVIS WITH CONTRAST, 01/01/2019, 19:13. [facility], CT, CT ABDOMEN PELVIS W CON, 05/23/2018, 22:24. FINDINGS: Image quality: Excellent. Lung bases: Unremarkable. Heart: Heart is normal in size. ABDOMEN: Liver: No mass lesion. Gallbladder: Within normal limits without calcified gallstones. Biliary ducts: No biliary ductal dilatation. Pancreas: Unremarkable. Spleen: Normal in size. Adrenal Glands: No adrenal nodules. Kidneys and Ureters: No hydronephrosis. Stomach and Bowel: There are postsurgical changes along the stomach and at the ileocecal junction. Stomach, small bowel loops, and colon are normal in caliber and wall thickness. Peritoneum: No abnormal intraperitoneal fluid. No free air. Ventral Wall: No hernia. Abdominal Nodes: No retroperitoneal or mesenteric adenopathy by size criteria. Vessels: Aorta and inferior vena cava are normal in size. PELVIS: Pelvic Organs: Uterus is surgically absent. Bladder: Unremarkable. Pelvic Nodes: No enlarged lymph nodes. Miscellaneous: No inguinal hernias are seen. Bones: Visualized osseous structures demonstrate no suspicious focal lesions. IMPRESSION: 1. No definite acute bowel inflammatory changes. 2. No evidence of bowel obstruction. Dictated by: Raffi Torres M.D. on 09/08/2022 at 20:58 Approved by: Raffi Torres M.D. on 09/08/2022 at 21:00
--- NOTE | 2022-09-08 19:24 | ED_ITS ---
HPI - General Adult General Chief complaint: Abdominal Pain Stated complaint: Chrons, not eating or drinking for 2 days Time Seen by Provider: 09/08/22 19:20 Source: patient Mode of arrival: Ambulatory History of Present Illness HPI narrative: Patient is a 47-year-old female. History of Crohn's disease. Also has had a gastric sleeve. Has had bowel resection. Is here for evaluation of upper abdominal pain that radiates to her back. Patient is having nausea. No vomiting. No fevers. No urinary symptoms. She is having blood in her stool. She is still passing gas and having bowel movements. Related Data Home Medications Medication Instructions Recorded Confirmed ustekinumab 130 mg/26 mL 260 mg IV ONCE 01/06/21 05/24/22 intravenous solution (Stelara) Previous Rx's Medication Instructions Recorded ipratropium 20 mcg-albuterol 100 1 puff inhalation Q6H #4 grams 05/24/22 mcg/actuation mist for inhalation (Combivent Respimat) nystatin 100,000 unit/gram topical 1 applic topical BID #15 grams 05/24/22 powder escitalopram oxalate 10 mg tablet 10 mg PO DAILY #90 tabs 08/31/22 (Lexapro) prednisone 20 mg tablet 20 mg PO DAILY 6 days #6 tabs 09/08/22 sucralfate 100 mg/mL oral 10 ml PO QACHS #414 mL 09/08/22 suspension (Carafate) Allergies Allergy/AdvReac Type Severity Reaction Status Date / Time metoclopramide AdvReac Severe grand mal Verified 06/17/21 14:01 seizure morphine AdvReac Severe Vomiting Verified 06/17/21 14:01 sertraline AdvReac Intermediate fear, Verified 06/17/21 14:01 increased anxiety venlafaxine AdvReac Intermediate explosive Verified 06/17/21 14:01 diarrhea fluoxetine [From Prozac] AdvReac Mild Shakiness Verified 06/17/21 14:01 lisinopril AdvReac Mild cough Verified 06/17/21 14:01 Review of Systems Constitutional Constitutional: Reports system reviewed and no additional complaints, except as documented Cardiovascular Cardiovascular: Reports system reviewed and no additional complaints, except as documented Respiratory Respiratory: Reports system reviewed and no additional complaints, except as documented Gastrointestinal Gastrointestinal: Reports system reviewed and no additional complaints, except as documented Genitourinary Genitourinary: Reports system reviewed and no additional complaints, except as documented Integumentary/Breasts Skin/Breast: Reports system reviewed and no additional complaints, except as documented Patient History Medical History Anxiety (02/2020) Asthma (Unknown) Chest pain (02/2020) Chicken pox (~1979) Depression (02/2020) Essential hypertension (06/2020) Heavy menstrual period Hemorrhoid History of asthma (~1984) History of Crohn's disease History of gastric ulcer History of kidney stones (~2016) Iron deficiency anemia (12/2020) Irritable bowel syndrome Measles Mumps Nonsurgical dumping syndrome PAC (premature atrial contraction) Painful menstrual periods Palpitations (02/2020) Pilonidal cyst without abscess (04/2013) PVCs (premature ventricular contractions) Rheumatic fever Rubella Seizure (09/2020) SVT (supraventricular tachycardia) Tinnitus (~2013) Surgical History Anesthesia H/O gastric sleeve (03/2021) History of tonsillectomy and adenoidectomy (~1979) History of uterine scar from previous surgery Status post (~09/08/02) Family History Mother Hypertension COPD (chronic obstructive pulmonary disease) Neuropathy Grandmother Cancer Grandfather Cancer Grandfather Cancer Grandmother History of heart disease Other Family history non-contributory Social History household members: spouse Smoking Status: Former smoker Tobacco: How many years used: 5 second hand exposure: No alcohol intake: current substance use type: marijuana Smoking Status: Former smoker alcohol intake frequency: a few times a month Substance Use Type: marijuana Exam Initial Vital Signs Initial Vital Signs: Vital Signs Temperature 98.3 F 09/08/22 17:52 Pulse Rate 70 09/08/22 17:52 Respiratory Rate 16 09/08/22 17:52 Blood Pressure 133/70 09/08/22 17:52 Pulse Oximetry 99 09/08/22 17:52 Oxygen Delivery Method Room Air 09/08/22 17:52 Const General: cooperative, comfortable and No ill appearing HENMT Head: normal to inspection and normocephalic Resp Effort & Inspection: normal respiratory effort Auscultation: clear to auscultation bilaterally Cardio Rate: regular rate Rhythm: regular rhythm GI Inspection: normal to inspection and non-distended Palpation: soft, No firm, No guarding and tender Skin General: no rashes or lesions noted Extrem General: normal to inspection and capillary refill normal Course Orders Ordered: ED Orders 09/08/22 18:15 Complete Blood Count AUTO DIFF Stat Comprehensive Metabolic Panel Stat Lipase Stat 09/08/22 19:24 CT abdomen pelvis w con Stat Discontinued Medications Al Hydrox/Mg Hydrox/Simethicone (Mag Hydrox/Alum/Simeth 30 Ml Udc) 30 ml PO NOW ONE Stop: 09/08/22 19:29 Last Admin: 09/08/22 19:41 Dose: 30 ml Documented By: KRISTA Sodium Chloride (Normal Saline 0.9%) 1,000 mls @ 1,000 mls/hr IV BOLUS ONE Stop: 09/08/22 20:23 Last Infusion: 09/08/22 21:05 Dose: 0 mls/hr Documented By: Infusion: 09/08/22 20:15 Dose: 1,000 mls/hr Documented By: Infusion: 09/08/22 19:53 Dose: 0 mls/hr Documented By: Admin: 09/08/22 19:42 Dose: 1,000 mls/hr Documented By: KRISTA Methylprednisolone (Methylprednisolone 125 Mg/2 Ml Vial) 125 mg IV NOW ONE Stop: 09/08/22 21:40 Last Admin: 09/08/22 22:03 Dose: 125 mg Documented By: BRIANNA Ondansetron HCl (Ondansetron 4 Mg Odt) 4 mg PO NOW PRN PRN Reason: Nausea And Vomiting Ondansetron HCl (Ondansetron 4 Mg/2 Ml Inj) 4 mg IV NOW PRN PRN Reason: Nausea And Vomiting Last Admin: 09/08/22 18:21 Dose: 4 mg Documented By: JUSTIN Ondansetron HCl (Ondansetron 4 Mg/2 Ml Inj) 4 mg IV NOW ONE Stop: 09/08/22 19:49 Last Admin: 09/08/22 19:51 Dose: 4 mg Documented By: KRISTA Pantoprazole Sodium (Pantoprazole 40 Mg Vial) 40 mg IV NOW ONE Stop: 09/08/22 19:29 Last Admin: 09/08/22 19:42 Dose: 40 mg Documented By: KRISTA Promethazine HCl (Promethazine 25 Mg Supp) 25 mg MT NOW ONE Stop: 09/08/22 21:04 Last Admin: 09/08/22 21:23 Dose: 25 mg Documented By: KRISTA Vital Signs Vital signs: Vital Signs - 8 hr 09/08/22 19:26 09/08/22 19:26 09/08/22 19:30 Pulse Rate 60 58 L Blood Pressure 156/85 H Pulse Oximetry 99 99 09/08/22 19:31 09/08/22 19:31 09/08/22 20:06 Pulse Rate 64 76 Blood Pressure 150/74 H Pulse Oximetry 99 09/08/22 20:17 09/08/22 20:17 Pulse Rate 60 Blood Pressure 158/76 H Pulse Oximetry 97 Medical Decision Making Medical Records Medical records reviewed: Yes I reviewed the patient's medical records. Lab Data Lab results reviewed: Yes I reviewed the patient's lab results. 09/08/22 18:15 09/08/22 18:15 Labs: Lab Results 09/08/22 09/08/22 Range/Units 18:15 18:15 WBC 7.5 (4.5-11.0) X10^3/uL RBC 5.12 (4.0-5.2) X10^6/uL Hgb 14.6 (12.0-16.0) g/dL Hct 43.2 (36-46) % MCV 84.4 (80-100) fL MCH 28.6 (26-34) PG MCHC 33.9 (30-36) % RDW 14.0 (11.6-14.8) % Plt Count 205 (150-400) X10^3/uL Neut % (Auto) 58.6 (50-75) % Lymph % (Auto) 29.0 (25-40) % [place] % (Auto) 6.5 (3-14) % Eos % (Auto) 5.1 H (2-4) % Baso % (Auto) 0.8 (0-2) % Neut # (Auto) 4400 (3184-0393) /uL Lymph # (Auto) 2200 (8479-4896) /uL [place] # (Auto) 500 (0-900) /uL Eos # (Auto) 400 (0-450) /uL Baso # (Auto) 100 (0-100) /uL Sodium 135 L (137-145) mmol/L Potassium 3.7 (3.4-5.1) mmol/L Chloride 103 (98-107) mmol/L Carbon Dioxide 25 (22-32) mmol/L BUN 12 (7-17) mg/dL Creatinine 0.61 (0.52-1.04) mg/dL Estimated GFR > 60 (>60) mL/min BUN/Creatinine Ratio 19.7 (6-22) Glucose 88 (70-100) mg/dL Calcium 9.0 (8.4-10.2) mg/dL Total Bilirubin 0.9 (0.2-1.3) mg/dL AST 32 (14-36) IU/L ALT 22 (<35) IU/L Alkaline Phosphatase 61 (38-126) U/L Total Protein 8.4 H (6.3-8.2) g/dL Albumin 4.5 (3.5-5.0) g/dL Globulin 3.9 (1.7-4.1) g/dL Albumin/Globulin Ratio 1.2 (1.0-2.8) Lipase 87 (23-300) U/L Urine Dip Bedside Urine Glucose Negative Bedside Urine Bilirubin - Negative Bedside Urine Ketone ++ 40 Urine Specific [place] 1.030 Bedside Urine Occult Blood - Negative Bedside Urine pH 6.0 Bedside Urine Protein - Negative Bedside Urine Urobilinogen - Negative Bedside Urine Nitrite - Negative Bedside Urine Leukocytes - Negative Esterase Point of care testing: Urine Dip Bedside Urine Glucose Negative Bedside Urine Bilirubin - Negative Bedside Urine Ketone ++ 40 Urine Specific [place] 1.030 Bedside Urine Occult Blood - Negative Bedside Urine pH 6.0 Bedside Urine Protein - Negative Bedside Urine Urobilinogen - Negative Bedside Urine Nitrite - Negative Bedside Urine Leukocytes - Negative Esterase Imaging Data CT scan - abdomen/pelvis: Radiologist's Impression: PROCEDURE:? CT ABDOMEN PELVIS W CON ? INDICATIONS:? History of Crohn's and multiple bowel resections with pain ? TECHNIQUE:? After the administration of IV contrast, axial sections were acquired from the lung bases to the pubic symphysis.? Coronal and sagittal reformats were performed.? For radiation dose reduction, the following was used:? automated exposure control, adjustment of mA and/or kV according to patient size. ? COMPARISON:? [facility], CT, CT ABDOMEN PELVIS WITH CONTRAST, 01/01/2019, 19:13.? [facility], CT, CT ABDOMEN PELVIS W CON, 05/23/2018, 22:24. ? FINDINGS:? Image quality:? Excellent.? ? Lung bases:? Unremarkable.? ? Heart:? Heart is normal in size. ? ? ABDOMEN: Liver:? No mass lesion. Gallbladder:? Within normal limits without calcified gallstones.? ? Biliary ducts:? No biliary ductal dilatation.? ? Pancreas:? Unremarkable.? ? Spleen:? Normal in size.? ? Adrenal Glands:? No adrenal nodules.? ? Kidneys and Ureters:? No hydronephrosis.? ? ? Stomach and Bowel:? There are postsurgical changes along the stomach and at the ileocecal junction.? Stomach, small bowel loops, and colon are normal in caliber and wall thickness.? Peritoneum:? No abnormal intraperitoneal fluid.? No free air.? ? Ventral Wall: ? No hernia.? Abdominal Nodes:? No retroperitoneal or mesenteric adenopathy by size criteria.? Vessels:? Aorta and inferior vena cava are normal in size.? ? PELVIS: Pelvic Organs:? Uterus is surgically absent.? ? Bladder:? Unremarkable.? ? Pelvic Nodes: No enlarged lymph nodes.? Miscellaneous: No inguinal hernias are seen. ? ? ? Bones:? Visualized osseous structures demonstrate no suspicious focal lesions. ? IMPRESSION:? ? 1.? No definite acute bowel inflammatory changes. ? 2. No evidence of bowel obstruction.? MDM Narrative Medical decision making narrative: Labs are unremarkable and CT scan does not show any signs of bowel obstruction. Patient has nausea medication at home. States that when symptoms like this happened she normally gets put on steroids which we will do. She was given a dose here in the ER. No indication for admission the hospital. No indication for surgical consultation. Will discharge patient home with return precautions and instructions to contact her GI doctor for follow-up. She expressed understanding and agreement. Discharge Plan Departure Patient Disposition: Home Clinical Impression: Abdominal pain, Crohn's disease Instructions: DI for Abdominal Pain-Adult Activity Restrictions/Additional Instructions: Recommend that you continue to take all of your medications as directed. I also recommend that you contact your primary doctor and your GI doctor for a follow- up. Return to the emergency department for new or worsening symptoms. Prescriptions: New prednisone 20 mg tablet 20 mg PO DAILY 6 Days Qty: 6 0RF sucralfate [Carafate] 100 mg/mL suspension 10 ml PO QACHS Qty: 414 2RF No Action escitalopram oxalate [Lexapro] 10 mg tablet 10 mg PO DAILY Qty: 90 0RF Stelara 130 mg/26 mL solution 260 mg IV ONCE Rx Instructions: administer over at least 1 hr Combivent Respimat 20-100 mcg/actuation mist 1 puff inhalation Q6H Qty: 4 3RF nystatin 100,000 unit/gram powder 1 applic topical BID Qty: 15 0RF Referrals: Ana Amaya MD [Primary Care Provider] - Stand Alone Forms: Patient Portal/API
[2022-09-08 19:26] VITALS: BP 156/85; PULSE 60; O2SAT 99
[2022-09-08 19:30] VITALS: PULSE 58; O2SAT 99
[2022-09-08 19:31] VITALS: BP 150/74; PULSE 64; O2SAT 99
[2022-09-08] MEDS: MAG HYDROX/ALUM/SIMETH 30 ML UDC PO (19:41)
[2022-09-08] MEDS: PANTOPRAZOLE 40 MG VIAL IV (19:42)
[2022-09-08] MEDS: SODIUM CHLORIDE 0.9% 1,000 ML 1000 ML IV (19:42)
[2022-09-08 20:06] VITALS: PULSE 76
[2022-09-08 20:17] VITALS: BP 158/76; PULSE 60; O2SAT 97
[2022-09-08] MEDS: PROMETHAZINE 25 MG SUPP PR (21:23)
[2022-09-08] MEDS: methylPREDNISolone 125 MG/2 ML VIAL IV (22:03)
== END 2022-09-08 22:09 | disposition home or self-care (01) ==
PROVIDERS: Emergency Medicine; Emergency Provider Emergency Medicine; PCP Family Medicine; Referring Provider Internal Medicine
DX: R10.10 Upper abdominal pain, unspecified (principal); K50.90 Crohn's disease, unspecified, without complications; R11.0 Nausea
CPT/HCPCS: 36415; 74177; 80053; 81003; 83690; 85025; 96361; 96374; 96375; 96376; 99284; C9113; J2405; J2930; Q9967

== ENCOUNTER → 2022-09-16 13:20 | Outpatient (CLI) | payer OTHER, SELFPAY ==
[2021-06-11 10:20] VITALS: BMI 40.1
[2022-09-16 14:43] LABS: Erythrocyte Sedimentation Rate 1 MM/HR (0-20)
== END ==
PROVIDERS: PCP Family Medicine; Referring Provider Internal Medicine; Visit Provider Internal Medicine
DX: K50.018 Crohn's disease of small intestine with other complication (principal)
CPT/HCPCS: 36415; 85651

== ENCOUNTER → 2022-09-19 15:16 | Outpatient (CLI) | payer OTHER, SELFPAY ==
[2021-06-11 10:20] VITALS: BMI 40.1
[2022-09-22 13:40] LABS: Calprotectin, Stool 305 ug/g (0-120)
== END ==
PROVIDERS: PCP Family Medicine; Referring Provider Internal Medicine; Visit Provider Internal Medicine
DX: K50.018 Crohn's disease of small intestine with other complication (principal)
CPT/HCPCS: 83993

== ENCOUNTER → 2022-10-14 16:26 | Outpatient (CLI) | payer OTHER, SELFPAY ==
[2021-06-11 10:20] VITALS: BMI 40.1
[2022-10-14 17:29] LABS: Cholesterol 146 mg/dL (140-199); HDL Cholesterol 48 mg/dL (40-60); LDL Cholesterol Calculated 74 mg/dL (<100); Triglycerides 122 mg/dL (35-150)
[2022-10-14 17:32] LABS: High Sensitivity CRP - Cardiac 1.7 mg/L (1.0-3.0)
[2022-10-14 17:42] LABS: Follicle Stimulating Hormone 3.95 mIU/mL
[2022-10-14 17:56] LABS: Thyroid Stimulating Hormone 0.404 uIU/mL (0.47-4.68)
[2022-10-16 08:28] LABS: Dehydroepiandrosterone Sulfate 69.4 ug/dL (41.2-243.7)
[2022-10-17 15:39] LABS: Estriol,Serum <0.1 ng/mL (.); Estrone,Serum 38 pg/mL (.)
[2022-10-21 06:49] LABS: Testosterone Free 0.15 ng/dL (0.10-0.85); Testosterone Total 13.9 ng/dL (.)
== END ==
PROVIDERS: PCP Family Medicine; Referring Provider Family Medicine; Visit Provider Family Medicine
DX: E34.9 Endocrine disorder, unspecified (principal); E78.5 Hyperlipidemia, unspecified; R00.2 Palpitations; R07.9 Chest pain, unspecified; R53.83 Other fatigue; Z90.710 Acquired absence of both cervix and uterus
CPT/HCPCS: 36415; 80061; 82627; 82670; 82677; 82679; 83001; 84402; 84403; 84443; 86140

== ENCOUNTER → 2023-01-09 15:16 | Outpatient (CLI) | payer OTHER, SELFPAY ==
[2021-06-11 10:20] VITALS: BMI 40.1
--- NOTE | 2023-01-09 | DI.RAD.S_ITS ---
PROCEDURE: XR ABDOMEN MIN 2V INDICATIONS: chrons disease of small intestine with other complication TECHNIQUE: 2 views of the abdomen were acquired. COMPARISON: None. FINDINGS: Surgical changes and devices: Surgical sutures project over the right lower quadrant.. Bowel: No pneumoperitoneum. The bowel gas pattern is normal. Soft tissues: No masses; visualized solid organ contours appear normal in size. No suspicious abdominal calcifications. Bones: No suspicious bony abnormalities. IMPRESSION: Non-obstructive bowel gas pattern. Dictated by: Escobar Joseph M.D. on 01/09/2023 at 16:41 Approved by: Escobar Joseph M.D. on 01/09/2023 at 16:41
== END ==
PROVIDERS: PCP Family Medicine; Referring Provider Internal Medicine; Visit Provider Internal Medicine
DX: K50.018 Crohn's disease of small intestine with other complication (principal); D50.9 Iron deficiency anemia, unspecified; F52.0 Hypoactive sexual desire disorder; R42 Dizziness and giddiness; E05.90 Thyrotoxicosis, unspecified without thyrotoxic crisis or storm; E55.9 Vitamin D deficiency, unspecified; E03.9 Hypothyroidism, unspecified
CPT/HCPCS: 36415; 74019; 80048; 82306; 82728; 83540; 83550; 84443; 86376; 86800

== ENCOUNTER → 2023-01-09 16:23 | Outpatient (CLI) | payer OTHER, SELFPAY ==
[2021-06-11 10:20] VITALS: BMI 40.1
[2023-01-09 16:56] LABS: BUN Creatinine Ratio 12.5 (6-22); Blood Urea Nitrogen 9 mg/dL (7-17); Carbon Dioxide 26 mmol/L (22-32); Chloride 106 mmol/L (98-107); Estimated Glomerular Filt Rate > 60 mL/min (>60); Glucose 90 mg/dL (70-100); HEMOLYSIS 97 (0-50); Potassium 4.4 mmol/L (3.4-5.1); Sodium 135 mmol/L (137-145)
[2023-01-09 17:06] LABS: HEMOLYSIS < 15 (0-50); Iron 65 ug/dL (37-170)
[2023-01-09 17:17] LABS: Percent Iron Saturation 29 % (15-50); Total Iron Binding Capacity 226 ug/dL (265-497); Transferrin 195 mg/dL (206-381)
[2023-01-09 17:24] LABS: Vitamin D 25 Hydroxy (D3) 29.7 ng/mL (30.0-100.0)
[2023-01-09 17:29] LABS: Ferritin 33 ng/mL (6-137)
[2023-01-09 17:37] LABS: TSH w/ Reflex to FT4 0.95 uIU/mL (0.47-4.68)
[2023-01-10 18:18] LABS: Anti Thyroglobulin Antibody <1.0 IU/mL (0.0-0.9); Thyroid Peroxidase Antibodies 13 IU/mL (0-34)
== END ==
PROVIDERS: PCP Family Medicine; Referring Provider Family Medicine; Visit Provider Family Medicine
DX: D50.9 Iron deficiency anemia, unspecified (principal); K58.2 Mixed irritable bowel syndrome; F52.0 Hypoactive sexual desire disorder; R42 Dizziness and giddiness; E05.90 Thyrotoxicosis, unspecified without thyrotoxic crisis or storm; E55.9 Vitamin D deficiency, unspecified; E03.9 Hypothyroidism, unspecified
CPT/HCPCS: 36415; 80048; 82306; 82728; 83540; 83550; 84443; 86376; 86800

== ENCOUNTER → 2023-07-05 14:48 | Outpatient (CLI) | payer OTHER, SELFPAY ==
[2021-06-11 10:20] VITALS: BMI 40.1
--- NOTE | 2023-07-05 14:49 | DI.MG.S_ITS ---
BILATERAL DIGITAL SCREENING MAMMOGRAM 3D/2D WITH CAD: 07/05/2023 CLINICAL: Baseline exam. Routine screening. Family history of breast cancer. No prior exams were available for comparison. Both breasts are heterogeneously dense, which may obscure small masses (category c / 51-75% glandular tissue). Current study was also evaluated with a Computer Aided Detection (CAD) system. There is an oval equal density focal asymmetry in the left breast at 8 o'clock posterior depth. No other significant masses, calcifications, or other findings are seen in either breast. IMPRESSION: INCOMPLETE: NEEDS ADDITIONAL IMAGING EVALUATION The oval equal density focal asymmetry in the left breast is indeterminate. Additional views with possible ultrasound are recommended. Based on the Tyrer Cuzick model (a risk assessment model) the patient's lifetime risk is 7.6% and her 10 year risk is 1.6%. According to the ACR, ACS, and NCCN guidelines, an annual breast MRI exam along with mammogram is recommended if the patient's lifetime risk is 20% or greater. This exam was interpreted at Station ID: [id number]. NOTE: For mammograms, a report in lay terms will be sent to the patient. Approximately 15% of breast malignancies will not be visualized mammographically. In the management of a palpable breast mass, a negative mammogram must not discourage biopsy of a clinically suspicious lesion. Electronically Signed By: Garrett ocasio/lor:07/06/2023 07:27:12 letter sent: Additional Imaging Needed ACR BI-RADS Category 0: Incomplete [id number]
== END ==
PROVIDERS: PCP Family Medicine; Referring Provider Family Medicine; Visit Provider Family Medicine
DX: Z12.31 Encounter for screening mammogram for malignant neoplasm of breast (principal); Z80.3 Family history of malignant neoplasm of breast; R92.333 Mammographic heterogeneous density, bilateral breasts
CPT/HCPCS: 77063; 77067

== ENCOUNTER → 2023-07-27 11:59 | Outpatient (CLI) | payer OTHER, SELFPAY ==
[2021-06-11 10:20] VITALS: BMI 40.1
--- NOTE | 2023-07-27 12:00 | DI.MG.S_ITS ---
UNILATERAL LEFT DIGITAL DIAGNOSTIC MAMMOGRAM 3D/2D WITH ADDITIONAL VIEWS: 07/27/2023 CLINICAL: Additional evaluation requested from prior study. Comparison is made to exam dated: 07/05/2023 mammogram - [facility]. The left breast is heterogeneously dense, which may obscure small masses (category c / 51-75% glandular tissue). There is a 0.9 cm oval mass with a circumscribed margin in the left breast at 8 o'clock posterior depth. This is seen in additional views. No other significant masses or calcifications are seen in the breast. IMPRESSION: INCOMPLETE: NEEDS ADDITIONAL IMAGING EVALUATION The 0.9 cm oval mass in the left breast is indeterminate. An ultrasound is recommended. Based on the Tyrer Cuzick model (a risk assessment model) the patient's lifetime risk is 7.6% and her 10 year risk is 1.6%. According to the ACR, ACS, and NCCN guidelines, an annual breast MRI exam along with mammogram is recommended if the patient's lifetime risk is 20% or greater. This exam was interpreted at Station ID: [id number]. NOTE: For mammograms, a report in lay terms will be sent to the patient. Approximately 15% of breast malignancies will not be visualized mammographically. In the management of a palpable breast mass, a negative mammogram must not discourage biopsy of a clinically suspicious lesion. Electronically Signed By: Mann purvis/lor:07/27/2023 13:49:25 ACR BI-RADS Category 0: Incomplete [id number]
--- NOTE | 2023-07-27 12:00 | DI.US.S_ITS ---
LIMITED ULTRASOUND OF LEFT BREAST: 07/27/2023 CLINICAL: Patient returns today to evaluate an asymmetry in the left breast. Comparison is made to exams dated: 07/27/2023 mammogram and 07/05/2023 mammogram - [facility]. Real-time ultrasound of the left breast 6-9 o'clock region was performed. Chaidez scale images of the real-time examination were reviewed. There is a possible 1 cm x 0.2 cm x 1 cm complicated cyst in the left breast at 6 o'clock middle depth 5 cm from the nipple. There also is a possible 0.2 cm x 0.2 cm x 0.2 cm complicated cyst in the left breast at 7 o'clock middle depth 8 cm from the nipple. IMPRESSION: PROBABLY BENIGN The possible 1 cm x 0.2 cm x 1 cm complicated cyst in the left breast at 6 o'clock middle depth is probably benign. This may correspond to the mammographic finding, though not certain. The possible 0.2 cm x 0.2 cm x 0.2 cm complicated cyst in the left breast at 7 o'clock middle depth is probably benign. A follow-up mammogram and an ultrasound in 6 months is recommended to demonstrate stability. This exam was interpreted at Station ID: [id number]. Electronically Signed By: Mann Christensen M.D. lc/:07/27/2023 13:51:58 letter sent: Followup Recommended Ultrasound BI-RADS: 3 Probably benign
== END ==
PROVIDERS: PCP Family Medicine; Referring Provider Family Medicine; Visit Provider Family Medicine
DX: R92.8 Other abnormal and inconclusive findings on diagnostic imaging of breast (principal); R92.332 Mammographic heterogeneous density, left breast
CPT/HCPCS: 76642; 77065; G0279

== ENCOUNTER → 2024-01-10 10:04 | Outpatient (CLI) | payer OTHER, SELFPAY ==
[2024-01-10 09:23] VITALS: BMI 40.1
[2024-01-10 14:41] LABS: Urine Volume 10mL (spun)
[2024-01-10 14:42] LABS: Amorphous Sediment Urine 3+; Bacteria Urine None Seen; Culture Indicated Urine Cult Not Indicated; RBC Urine None Seen (0-5/HPF); Squamous Epithelial Cell Urine None Seen (0-5/HPF); WBC Urine None Seen (0-5/HPF)
== END ==
PROVIDERS: PCP Family Medicine; Visit Provider Physician Assistant
DX: N30.01 Acute cystitis with hematuria (principal)
CPT/HCPCS: 81015

== ENCOUNTER 2024-03-27 17:34 | Emergency (ER) | payer OTHER, SELFPAY ==
[2024-01-10 09:23] VITALS: BMI 40.1
[2024-03-27] VITALS (14 sets, daily range): BP systolic 112–145; BP diastolic 69–83; PULSE 95–116; RESP 13–20; TEMP 36.9; O2SAT 95–100; BMI 24.3
--- NOTE | 2024-03-27 18:08 | DI.RAD.S_ITS ---
PROCEDURE: XR CHEST 1V INDICATIONS: suspected sepsis TECHNIQUE: One view of the chest was acquired. COMPARISON: None. FINDINGS: Surgical changes and devices: None. Lungs and pleura: Lungs are clear. No pleural effusions or pneumothorax. Mediastinum: Mediastinal contours appear normal. Heart size is normal. Bones and chest wall: No suspicious bony lesions. Overlying soft tissues appear unremarkable. IMPRESSION: No acute cardiopulmonary abnormality is seen. Dictated by: Maxwell Kuo M.D. on 03/27/2024 at 18:42 Approved by: Maxwell Kuo M.D. on 03/27/2024 at 18:43
[2024-03-27 18:50] LABS: Add Manual Diff / Slide Review NO; Basophils Absolute Auto 100 /uL (0-100); Eosinophils Absolute Auto 100 /uL (0-450); Hematocrit 30.9 % (36-46); Hemoglobin 10.1 g/dL (12.0-16.0); Lymphocytes Absolute Auto 1500 /uL (1100-4500); Lymphocytes Percent Auto 13.3 % (25-40); Mean Corpuscular HGB Conc 32.7 % (30-36); Mean Corpuscular Volume 85.7 fL (80-100); Monocytes Absolute Auto 700 /uL (0-900); Monocytes Percent Auto 6.1 % (3-14); Neutrophils Absolute Auto 9000 /uL (1500-7000); Neutrophils Percent Auto 78.6 % (50-75); Platelet Count 505 X10^3/uL (150-400); Red Blood Cell Count 3.61 X10^6/uL (4.0-5.2); Red Cell Distribution Width 15.1 % (11.6-14.8); White Blood Cell Count 11.4 X10^3/uL (4.5-11.0)
[2024-03-27] MEDS: SODIUM CHLORIDE 0.9% 1,000 ML 1000 ML IV (18:53)
[2024-03-27 19:03] LABS: INR 1.1 (0.9-1.3); Prothrombin Time 12.1 SECONDS (9.4-12.5)
[2024-03-27 19:05] LABS: PTT Partial Thromboplastin Tim 31 SECONDS (25.1-36.5)
[2024-03-27 19:07] LABS: Alanine Aminotransferase 13 IU/L (<35); Albumin 3.7 g/dL (3.5-5.0); Alkaline Phosphatase 73 U/L (38-126); Aspartate Aminotransferase 20 IU/L (14-36); Bilirubin Total 0.3 mg/dL (0.2-1.3); Blood Urea Nitrogen 12 mg/dL (7-17); Calcium 9.2 mg/dL (8.4-10.2); Carbon Dioxide 25 mmol/L (22-32); Chloride 103 mmol/L (98-107); Estimated Glomerular Filt Rate > 60 mL/min (>60); Globulin 3.8 g/dL (1.7-4.1); Glucose 98 mg/dL (70-100); HEMOLYSIS < 15 (0-50); Lactate (Lactic Acid) 0.9 mmol/L (0.7-2.1); Lipase 48 U/L (23-300); Potassium 4.1 mmol/L (3.4-5.1); Sodium 135 mmol/L (137-145); Total Protein 7.5 g/dL (6.3-8.2)
[2024-03-27 19:24] LABS: Procalcitonin 0.074 ng/mL (<0.5)
--- NOTE | 2024-03-27 19:27 | ED.ABDPAIN ---
HPI - Abdominal Pain General Chief Complaint: Abdominal Pain Stated Complaint: ABD filling with fluid, dizzy, dehydrated Time Seen by Provider: 03/27/24 19:27 History of Present Illness HPI narrative: 49-year-old female with a history of hypertension, hyperlipidemia, status post breast augmentation, tummy tuck, lower body lift done in [place] on 03/06, with revisions done on 03/07, had drains removed by Dr. Geiger here at [place] on 03/14/2024 presenting for persistent pain, swelling to the abdomen. Patient states that she called her primary care doctor about her symptoms and states that she was told to come into the ED for further evaluation treatment. Patient denies any other symptoms such as headache visual disturbances chest pain shortness of breath fever chills nausea vomiting or any other GI/ symptoms time. Not on any blood thinners, Review of records show that patient did see Dr. Geiger on 03/18/2024 in the clinic and had drains removed x2 in her abdomen. That time she was reporting drainage of about 50-60 mL per day states that she has been staying in contact with the plastic surgeon in [place] who told her that they needed to be removed. At that time he expressed concern that the drains were out putting too much and he would not recommend removal of drains, therefore drains were removed, gauze over the drain sites and to follow up as needed. Related Data Home Medications Medication Instructions Recorded Confirmed ustekinumab 130 mg/26 mL 260 mg IV ONCE 01/06/21 03/18/24 intravenous solution (Stelara) semaglutide 0.25 mg or 0.5 mg (2 0.25 mg SUBCUT QWEEK 02/06/24 03/18/24 mg/3 mL) subcutaneous pen injector Previous Rx's Medication Instructions Recorded ipratropium 20 mcg-albuterol 100 1 puff inhalation Q6H #4 grams 05/24/22 mcg/actuation mist for inhalation (Combivent Respimat) sucralfate 100 mg/mL oral 10 ml PO QACHS #414 mL 09/08/22 suspension (Carafate) nystatin 100,000 unit/gram topical 1 applic topical BID #15 grams 10/03/22 powder GI cocktail - Maalox 30ml and 45 ml PO ONCE #45 mL 12/12/22 viscous lido 15ml escitalopram oxalate 10 mg tablet 10 mg PO DAILY #90 tabs 01/02/23 (Lexapro) esomeprazole magnesium 40 mg 40 mg PO DAILY #90 caps 01/09/23 capsule,delayed release flibanserin 100 mg tablet (Addyi) 100 mg PO BEDTIME #90 tabs 01/09/23 nitrofurantoin macrocrystal 100 mg 100 mg PO BID #14 caps 01/10/24 capsule progesterone micronized 100 mg 100 - 400 mg (1 - 4 x 100 mg) PO 02/06/24 capsule BEDTIME #90 caps testosterone 0.5-1% 2 - 10 mg topical DAILY #30 days 02/07/24 promethazine 12.5 mg rectal 12.5 mg ID Q6H PRN nausea and 03/21/24 suppository vomiting #12 ea Allergies Allergy/AdvReac Type Severity Reaction Status Date / Time metoclopramide AdvReac Severe grand mal Verified 03/18/24 13:23 seizure morphine AdvReac Severe Vomiting Verified 03/18/24 13:23 sertraline AdvReac Intermediate fear, Verified 03/18/24 13:23 increased anxiety venlafaxine AdvReac Intermediate explosive Verified 03/18/24 13:23 diarrhea fluoxetine [From Prozac] AdvReac Mild Shakiness Verified 03/18/24 13:23 lisinopril AdvReac Mild cough Verified 03/18/24 13:23 Review of Systems Review of Systems Narrative: General: Denies fever, chills, weight loss HEENT: Denies headache, eye drainage, eye irritation, head trauma, sore throat, voice change Cardiovascular: Denies any chest pain, palpitations, shortness of breath, tachycardia Respiratory: Denies any shortness of breath, cough, wheeze, stridor GI/: Positive abdominal pain, distention, denies nausea, vomiting, diarrhea, bright red blood per rectum, melanotic stools, urinary frequency, urinary retention, dysuria, hematuria MSK: Denies any joint pain, muscle pains, swelling Skin: Denies any rashes, lesions, discoloration Neuro: Denies any headache, lightheadedness, dizziness, fainting, weakness Psych: Denies SI/HI Patient History Medical History Pilonidal cyst without abscess (04/2013) Menorrhagia with irregular cycle History of kidney stones Acute mesenteric adenitis History of seizure (~09/2020) PAC (premature atrial contraction) PVCs (premature ventricular contractions) SVT (supraventricular tachycardia) Asthma (Unknown) Iron deficiency anemia (12/2020) Palpitations (02/2020) Essential hypertension (06/2020) Depression (02/2020) Anxiety (02/2020) Rubella Rheumatic fever Mumps Measles Chicken pox (~1979) Tinnitus (~2013) Painful menstrual periods Heavy menstrual period Irritable bowel syndrome Hemorrhoid History of Crohn's disease History of gastric ulcer Nonsurgical dumping syndrome History of kidney stones (~2016) History of asthma (~1984) Surgical History History of partial colectomy (~2021) H/O gastric sleeve (03/2021) Anesthesia History of uterine scar from previous surgery Status post (~09/08/02) History of tonsillectomy and adenoidectomy (~1979) Family History Mother Hypertension COPD (chronic obstructive pulmonary disease) Neuropathy Grandmother Cancer Grandfather Cancer Grandfather Cancer Grandmother History of heart disease Other Family history non-contributory Social History household members: spouse Smoking Status: Former smoker Tobacco: How many years used: 5 second hand exposure: No alcohol intake: current substance use type: marijuana Smoking Status: Former smoker alcohol intake frequency: a few times a month Exam Narrative Exam Narrative: General: Cooperative, comfortable, well-developed, not in acute distress HEENT: Normocephalic, atraumatic, PERRLA, normal sclera, eyelids normal, Neck: Active full range of motion, atraumatic Chest: Normal to inspection, negative crepitus, no overlying erythema ecchymosis Respiratory: Normal respiratory effort, not in acute respiratory distress, clear to auscultation bilaterally negative cough, wheeze, tachypnea, rhonchi, rales Cardiology: Regular rate rhythm negative gallop, murmur, rubs GI/: Patient with well-healing scar to the lower abdomen consistent with recent tummy tuck, no purulent discharge no erythema no other signs of infection soft, nonrigid, no tenderness to palpation, exam deferred MSK: Full range of active range of motion of all 4 extremities, atraumatic Skin: No rashes lesions noted Neuro: Alert awake oriented x3, moves all 4 extremities spontaneously, cranial nerves intact, able to answer all questions appropriately follows commands appropriately Psych: Cooperative, negative suicidal or homicidal ideations Initial Vital Signs Initial Vital Signs: Vital Signs Temperature 98.5 F 03/27/24 17:44 Pulse Rate 116 H 03/27/24 17:44 Respiratory Rate 20 03/27/24 17:44 Blood Pressure 142/83 H 03/27/24 17:44 Pulse Oximetry 99 03/27/24 17:44 Oxygen Delivery Method Room Air 03/27/24 17:44 Course Orders Ordered: ED Orders 03/27/24 18:08 XR chest 1V Stat EKG-12 Lead Stat RT Consult Eval and Treat NOW 03/27/24 18:25 Complete Blood Count AUTO DIFF Stat Comprehensive Metabolic Panel Stat Lactate (Lactic Acid) Stat Lipase Stat PTT Partial Thromboplastin Joesph Stat Procalcitonin Stat Prothrombin Time INR Stat 03/27/24 18:35 Blood Culture Stat 03/27/24 18:53 Urine Microscopic Stat 03/27/24 19:30 CT abdomen pelvis w con Stat Ondansetron HCl (Ondansetron 4 Mg/2 Ml Inj) 4 mg IV NOW PRN PRN Reason: Nausea And Vomiting Ondansetron HCl (Ondansetron 4 Mg Odt) 4 mg SL NOW PRN PRN Reason: Nausea And Vomiting Discontinued Medications Sodium Chloride (Normal Saline 0.9%) 1,000 mls @ 1,000 mls/hr IV BOLUS ONE Stop: 03/27/24 19:06 Last Infusion: 03/27/24 20:20 Dose: Infused Documented By: Admin: 03/27/24 18:53 Dose: 1,000 mls/hr Documented By: SHIELA Acetaminophen (Ofirmev) 1,000 mg in 100 mls @ 400 mls/hr IV NOW ONE Stop: 03/27/24 19:55 Last Infusion: 03/27/24 20:34 Dose: Infused Documented By: Admin: 03/27/24 20:13 Dose: 400 mls/hr Documented By: MR Vital Signs Vital signs: Vital Signs - 8 hr 03/27/24 17:44 03/27/24 17:55 03/27/24 17:56 Temperature 98.5 F Pulse Rate 116 H 97 H Respiratory Rate 20 19 Blood Pressure 142/83 H 133/73 Pulse Oximetry 99 98 Oxygen Delivery Method Room Air 03/27/24 17:56 03/27/24 18:00 03/27/24 18:00 Temperature Pulse Rate 96 H 95 H Respiratory Rate 14 15 Blood Pressure 130/70 Pulse Oximetry 95 97 Oxygen Delivery Method 03/27/24 18:30 03/27/24 18:30 03/27/24 18:54 Temperature Pulse Rate 104 H Respiratory Rate 17 Blood Pressure 133/81 145/83 H Pulse Oximetry 97 Oxygen Delivery Method 03/27/24 18:54 03/27/24 19:00 03/27/24 19:00 Temperature Pulse Rate 99 H 98 H Respiratory Rate 18 20 Blood Pressure 127/69 Pulse Oximetry 99 98 Oxygen Delivery Method MDM - Abdominal Pain Differential Diagnosis Differential diagnosis: Likely abdominal pain and other (Seroma, cellulitis, abscess) Lab Data 03/27/24 18:25 03/27/24 18:25 Labs: Lab Results 03/27/24 03/27/24 Range/Units 18:25 18:53 WBC 11.4 H (4.5-11.0) X10^3/uL RBC 3.61 L (4.0-5.2) X10^6/uL Hgb 10.1 L (12.0-16.0) g/dL Hct 30.9 L (36-46) % MCV 85.7 (80-100) fL MCH 28.0 (26-34) PG MCHC 32.7 (30-36) % RDW 15.1 H (11.6-14.8) % Plt Count 505 H (150-400) X10^3/uL Neut % (Auto) 78.6 H (50-75) % Lymph % (Auto) 13.3 L (25-40) % [place] % (Auto) 6.1 (3-14) % Eos % (Auto) 1.0 L (2-4) % Baso % (Auto) 1.0 (0-2) % Neut # (Auto) 9000 H (7357-6030) /uL Lymph # (Auto) 1500 (8635-6145) /uL [place] # (Auto) 700 (0-900) /uL Eos # (Auto) 100 (0-450) /uL Baso # (Auto) 100 (0-100) /uL PT 12.1 (9.4-12.5) SECONDS INR 1.1 (0.9-1.3) APTT 31 (25.1-36.5) SECONDS Sodium 135 L (137-145) mmol/L Potassium 4.1 (3.4-5.1) mmol/L Chloride 103 (98-107) mmol/L Carbon Dioxide 25 (22-32) mmol/L BUN 12 (7-17) mg/dL Creatinine 0.60 (0.52-1.04) mg/dL Estimated GFR > 60 (>60) mL/min BUN/Creatinine Ratio 20.0 (6-22) Glucose 98 (70-100) mg/dL Lactate 0.9 (0.7-2.1) mmol/L Calcium 9.2 (8.4-10.2) mg/dL Total Bilirubin 0.3 (0.2-1.3) mg/dL AST 20 (14-36) IU/L ALT 13 (<35) IU/L Alkaline Phosphatase 73 (38-126) U/L Total Protein 7.5 (6.3-8.2) g/dL Albumin 3.7 (3.5-5.0) g/dL Globulin 3.8 (1.7-4.1) g/dL Albumin/Globulin Ratio 1.0 (1.0-2.8) Lipase 48 (23-300) U/L Procalcitonin 0.074 (<0.5) ng/mL Urine RBC None seen (0-5/HPF) Urine WBC 0-1/hpf (0-5/HPF) Ur Squamous Epith Cells 0-1 /hpf (0-5/HPF) Calcium Oxalate Crystal Moderate H Urine Bacteria Occasional (0-1) (None) Ur Culture Indicated? Cult not indicated Vol Urine Centrifuged 10ml (spun) Point of care testing: Point of Care Testing Test Results Negative Urine Dip Bedside Urine Glucose Negative Bedside Urine Bilirubin - Negative Bedside Urine Ketone ++ 40 Urine Specific [place] 1.030 Bedside Urine Occult Blood - Negative Bedside Urine pH 6.0 Bedside Urine Protein - Negative Bedside Urine Urobilinogen - Negative Bedside Urine Nitrite - Negative Bedside Urine Leukocytes - Negative Esterase MDM Narrative Medical decision making narrative: 49-year-old female status post tummy tuck done in [place] on 03/06/2024 presenting for distention to her lower abdomen started a few days after patient had drains removed on 03/14/[address] Geiger here at [place]. Patient lab work mild leukocytosis of 11 however patient afebrile nontoxic exam externally showing no purulent discharge no erythema no streaking concerning for an infection. 2054: Dr. lemon (general surgery) personally reviewed the CT scans, sedating that there is no acute findings, is recommending patient to continue to wear wear compressive garments, agrees leukocytosis most likely secondary to postop changes and given the fact that patient not presenting without any erythema purulent discharge or tenderness to palpation of the area no indication for antibiotics at this time 2139: Patient was re-evaluated no new complaints at this time improved symptoms after administration medication informed her of her negative workup performed here in the emergency department, informed her CT scans are consistent with normal postop findings to continue wearing her compressive garments, patient was given strict return precautions she verbalized understanding of this and agrees to being discharged home with outpatient follow up Discharge Plan Departure Patient Disposition: Home Clinical Impression: Post-op pain Activity Restrictions/Additional Instructions: Please follow up with your general surgeon your primary care doctor for continued evaluation treatment of your symptoms Please read the discharge instructions sheet carefully and bring all papers to all doctor follow-up visits, as it may contain information that your doctor may want to see. Disease processes change and evolve, if your symptoms worsen or if you develop any new symptoms that are concerning to you please return for evaluation. Your evaluation today does not show any evidence of any life-threatening/serious illnesses requiring admission to the hospital or surgery. Please follow-up with your doctor for re-evaluation in approximately 1 day. Seek immediate medical attention for any worrisome symptoms. *If you do not have a primary care provider please contact the [facility] Resource line at [phone]. They will ask some questions about your medical history and help get you set up with a doctor in the community. Prescriptions: No Action nystatin 100,000 unit/gram powder 1 applic topical BID Qty: 15 0RF GI cocktail - Maalox 30ml and viscous lido 15ml 45 ml PO ONCE Qty: 45 2RF Rx Instructions: Drink once for Crohn's flare up escitalopram oxalate [Lexapro] 10 mg tablet 10 mg PO DAILY Qty: 90 0RF Hold Instructions: Home Medication placed on hold at Doctor's office promethazine 12.5 mg suppository 12.5 mg ID Q6H PRN (Reason: nausea and vomiting) Qty: 12 1RF Rx Instructions: For use with Crohn's flare up Stelara 130 mg/26 mL solution 260 mg IV ONCE Rx Instructions: administer over at least 1 hr Combivent Respimat 20-100 mcg/actuation mist 1 puff inhalation Q6H Qty: 4 3RF nitrofurantoin macrocrystal 100 mg capsule 100 mg PO BID Qty: 14 0RF Rx Instructions: must administer with a meal/food Addyi 100 mg tablet 100 mg PO BEDTIME Qty: 90 0RF esomeprazole magnesium 40 mg capsule,delayed release(DR/EC) 40 mg PO DAILY Qty: 90 0RF semaglutide 0.25 mg or 0.5 mg (2 mg/3 mL) pen injector 0.25 mg SUBCUT QWEEK Rx Instructions: for 4 weeks progesterone micronized 100 mg capsule 100 - 400 mg PO BEDTIME Qty: 90 2RF Rx Instructions: Start with 100mg nightly, can increase to max 400/day testosterone 0.5-1% 2 - 10 mg topical DAILY MDD 10mg Qty: 30 5RF Rx Instructions: Start with 2mg daily, can increase by 2mg to max 10mg daily as discussed in clinic visit sucralfate [Carafate] 100 mg/mL suspension 10 ml PO QACHS Qty: 414 2RF Referrals: Noemi Garay DO [Primary Care Provider] - Stand Alone Forms: Patient Portal/API/Survey
--- NOTE | 2024-03-27 19:30 | DI.CT.S_ITS ---
PROCEDURE: CT ABDOMEN PELVIS W CON INDICATIONS: Status post tummy tuck with drain removal TECHNIQUE: After the administration of intravenous contrast, axial sections acquired from the lung bases to the pubic symphysis. Coronal and sagittal reformats were performed. For radiation dose reduction, the following was used: automated exposure control, adjustment of mA and/or kV according to patient size. COMPARISON: [facility], CT, CT ABDOMEN PELVIS W CON, 09/08/2022, 19:52. FINDINGS: Image quality: Diagnostic. Lower Chest: No significant findings. Bilateral breast implants are intact. ABDOMEN: Liver: No solid mass. Gallbladder: No radiopaque gallstones or wall thickening. Biliary ducts: No biliary dilation. Pancreas: No ductal dilation. Spleen: Size is within normal limits. Adrenal Glands: No adrenal nodules. Kidneys and Ureters: No hydronephrosis. No solid mass. No complex renal cystic lesion which requires follow up. Stomach and Bowel: There is no bowel obstruction. No abnormal bowel wall thickening or mesenteric fat stranding. Postsurgical changes are noted in right lower quadrant with intact surgical anastomosis. Sigmoid diverticulosis is seen without CT evidence of acute diverticulitis. No abscess collection. Peritoneum: No abnormal intraperitoneal fluid. No free air. Ventral Wall: Postsurgical changes are noted in anterior abdominal wall with subcutaneous fat stranding. Ill-defined fluid collection in lower anterior abdominal wall/pelvic wall is seen measures up to 8 x 2.3 x 5.6 cm in size and show no definite thickened enhancing wall. Abdominal Nodes: No retroperitoneal or mesenteric adenopathy by size criteria. Vessels: Aorta and inferior vena cava are normal in size. PELVIS: Pelvic Organs: Unremarkable. Bladder: No bladder wall thickening, accounting for underdistention. Pelvic Nodes: No enlarged lymph nodes. Miscellaneous: No inguinal hernias are seen. Bones: No aggressive osseous abnormality. IMPRESSION: 1. Postsurgical changes in anterior lower abdominal wall and pelvic wall with ill-defined thin walled fluid collection in anterior lower abdominal/pelvic wall as described above likely represent postsurgical seroma. Early infected fluid collection cannot be entirely excluded. Clinical and imaging follow-up is recommended. 2. There is no bowel obstruction or abnormal bowel wall thickening. No peritoneal free fluid or free air. No peritoneal abscess collection. Dictated by: Dino Funes M.D. on 03/27/2024 at 20:18 Approved by: Dino Funes M.D. on 03/27/2024 at 20:21
[2024-03-27 20:08] LABS: Bacteria Urine Occasional (0-1); Calcium Oxalate Crystals Urine Moderate; RBC Urine None Seen (0-5/HPF); Squamous Epithelial Cell Urine 0-1 /HPF (0-5/HPF); Urine Volume 10mL (spun); WBC Urine 0-1/HPF (0-5/HPF)
[2024-03-27 20:09] LABS: Culture Indicated Urine Cult Not Indicated
[2024-03-27] MEDS: ACETAMINOPHEN IV 1,000 MG/100 ML VIAL 400 MG IV (20:13)
== END 2024-03-27 21:54 | disposition home or self-care (01) ==
PROVIDERS: Emergency Provider Student in an Organized Health Care Education/Training Program; PCP Family Medicine
DX: G89.18 Other acute postprocedural pain (principal); R19.00 Intra-abdominal and pelvic swelling, mass and lump, unspecified site; R10.9 Unspecified abdominal pain
CPT/HCPCS: 36415; 71045; 74177; 80053; 81003; 81015; 81025; 83605; 83690; 84145; 85025; 85610; 85730; 87040; 96361; 96365; 99284; 99285; J0131; Q9967

== ENCOUNTER → 2024-04-16 09:43 | Outpatient (CLI) | payer OTHER, SELFPAY ==
[2024-01-10 09:23] VITALS: BMI 40.1
== END ==
LOC: WC 09:47
PROVIDERS: PCP Family Medicine; Referring Provider Family Medicine; Visit Provider Surgery
DX: S21.002A Unspecified open wound of left breast, initial encounter (principal); S21.102A Unspecified open wound of left front wall of thorax without penetration into thoracic cavity, initial encounter; T81.31XA Disruption of external operation (surgical) wound, not elsewhere classified, initial encounter
CPT/HCPCS: 11042; 11045; 99203; 99213

== ENCOUNTER → 2024-04-23 11:03 | Outpatient (CLI) | payer OTHER, SELFPAY ==
[2024-01-10 09:23] VITALS: BMI 40.1
== END ==
LOC: WC 11:05
PROVIDERS: PCP Family Medicine; Referring Provider Family Medicine; Visit Provider Surgery
DX: T81.31XA Disruption of external operation (surgical) wound, not elsewhere classified, initial encounter (principal); S21.002A Unspecified open wound of left breast, initial encounter; S31.109A Unspecified open wound of abdominal wall, unspecified quadrant without penetration into peritoneal cavity, initial encounter; S71.001A Unspecified open wound, right hip, initial encounter; S21.102D Unspecified open wound of left front wall of thorax without penetration into thoracic cavity, subsequent encounter
CPT/HCPCS: 11042; 99213

== ENCOUNTER → 2024-04-30 11:05 | Outpatient (CLI) | payer OTHER, SELFPAY ==
[2024-01-10 09:23] VITALS: BMI 40.1
== END ==
LOC: WC 11:07
PROVIDERS: PCP Family Medicine; Referring Provider Family Medicine; Visit Provider Surgery
DX: T81.89XA Other complications of procedures, not elsewhere classified, initial encounter (principal); S31.109A Unspecified open wound of abdominal wall, unspecified quadrant without penetration into peritoneal cavity, initial encounter; S21.002A Unspecified open wound of left breast, initial encounter
CPT/HCPCS: 11042; 97602

== ENCOUNTER → 2024-05-07 14:13 | Outpatient (CLI) | payer OTHER, SELFPAY ==
[2024-01-10 09:23] VITALS: BMI 40.1
== END ==
LOC: WC 14:14
PROVIDERS: PCP Family Medicine; Referring Provider Family Medicine; Visit Provider Surgery
DX: T81.31XA Disruption of external operation (surgical) wound, not elsewhere classified, initial encounter (principal); S21.002A Unspecified open wound of left breast, initial encounter; S31.109A Unspecified open wound of abdominal wall, unspecified quadrant without penetration into peritoneal cavity, initial encounter
CPT/HCPCS: 11042

== ENCOUNTER → 2024-05-13 11:30 | Outpatient (CLI) | payer OTHER, SELFPAY ==
[2024-01-10 09:23] VITALS: BMI 40.1
--- NOTE | 2024-05-13 | OV.WND_ITS ---
PROGRESS NOTE DETAILS PATIENT NAME: ROCCO CANO PATIENT NUMBER: [id number] CLINICIAN: SHILPA ZAIDI PATIENT DATE OF : 1975 PHYSICIAN / ORTHOPEDIC PHYSICAL THERAPIST: PAUL LEVINE PATIENT SUBJECTIVE CHIEF COMPLAINT THIS INFORMATION WAS OBTAINED FROM THE PATIENT. IT'S BEEN ACHY AND ITCHY ALLERGIES LISINOPRIL, METOCLOPRAMIDE, MORPHINE, PROZAC, SERTRALINE HCL, VENLAFAXINE HPI THIS INFORMATION WAS OBTAINED FROM THE PATIENT. THE FOLLOWING HPI ELEMENTS WERE DOCUMENTED FOR THE PATIENT'S WOUND: LOCATION: L BREAST, ABDOMEN DURATION: 03/30/24, 04/11/24 CONTEXT: SURGICAL THE PATIENT IS A 49-YEAR-OLD FEMALE WITH CROHN'S DISEASE, ASTHMA, AND SVT WHO RETURNS TODAY FOR FOLLOW UP OF SURGICAL WOUNDS ON THE LEFT BREAST AND ABDOMEN. THE PATIENT UNDERWENT BILATERAL BREAST AUGMENTATION AND ABDOMINOPLASTY IN [place] ON MARCH 06, 2024. SHE DEVELOPED AN INFECTION IN THE LEFT BREAST AND UNDERWENT REMOVAL OF THE IMPLANT ON MARCH 30, [address] [facility]. SHE HAS BEEN RECEIVING DRESSING CHANGES WITH THE HYDROFERA BLUE AND ADAPTIC TO THE LEFT BREAST AND HYDROFERA BLUE TO THE ABDOMINAL WOUND. SHE NOT NOTED ANY REDNESS NOR HAS SHE HAD ANY FEVER OR CHILLS. THERE HAS BEEN INCREASED DRAINAGE FROM THE LEFT ABA AREOLA WOUND. THE PATIENT RECENTLY DEVELOPED SOME PAIN IN THE RIGHT BREAST BUT DOES NOT HAVE ANY OPEN WOUNDS. SHE HAS HAD A SEROMA OF THE ABDOMEN AND HAS PERCUTANEOUS DRAINS THAT ARE BEING MANAGED BY PLASTIC SURGERY AT THE [facility]. 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 THE PATIENT REPORTS A GOOD APPETITE AND DENIES HAVING ANY OTHER RECENT CHANGES IN HER OVERALL HEALTH. THE PATIENT DOES NOT SMOKE CIGARETTES. ON EXAM TODAY THE WOUND OF THE INFERIOR ASPECT OF THE LEFT BREAST REMAINS HEALED AND THE ABA AREOLA WOUND IS SLIGHTLY IMPROVED. THE WOUND ON THE RIGHT LATERAL ASPECT OF THE LOW TRANSVERSE INCISION IS CONTINUING TO IMPROVE. LABS: 03/27/24: WBC 11.4, HEMOGLOBIN 10.1, HCT 30.9, ELECTROLYTES UNREMARKABLE, GFR GREATER THAN 60, LFTS NORMAL FAMILY HISTORY THIS INFORMATION WAS OBTAINED FROM THE PATIENT. CANCER- MATERNAL GRANDPARENTS, PATERNAL GRANDPARENTS DIABETES- MATERNAL GRANDPARENTS, PATERNAL GRANDPARENTS HEART DISEASE- MOTHER ROCCO CANO [id number] 1975 SOCIAL HISTORY THIS INFORMATION WAS OBTAINED FROM THE CHART, PATIENT. FORMER SMOKER: QUIT 10 YEARS AGO ALCOHOL USE: OCCASIONAL CAFFEINE USE: 1 CUP/DAY CHILDREN: TWO LIVES IN: OWN HOME MARITAL STATUS: OCCUPATION: UNEMPLOYED MEDICAL HISTORY THIS INFORMATION WAS OBTAINED FROM THE PATIENT. PATIENT HAS A MEDICAL HISTORY OF: ASTHMA CROHN'S DISEASE ADDITIONAL INFORMATION DOES PATIENT HAVE A HISTORY OF CANCER? YES? COMPLETE ALL QUESTIONS.: NO SURGICAL HISTORY THIS INFORMATION WAS OBTAINED FROM THE PATIENT. PATIENT HAS A SURGICAL HISTORY OF: BREAST IMPLANT REMOVAL (LEFT)- 03/30/2024 KATHY JACKSONCK, BREAST IMPLANTS- 03/06/2024 BOWEL RESECTION- 06/20/2021 GASTRIC SLEEVE- 03/23/2021 HYSTERECTOMY- (2021) HERNIA REPAIR (X2)- 08/21/2023 - (2002) TONSILECTOMY- (AGE 8) REVIEW OF SYSTEMS (ROS) THIS INFORMATION WAS OBTAINED FROM THE PATIENT. COMPLAINTS AND SYMPTOMS PATIENT COM PLAINS OF: PRIOR WOUND HISTORY: BLEEDING, DRAINAGE, PAIN PATIENT DENIES COM PLAINTS OR SY M PTOM S RELATED TO: CARDIOVASCULAR (CENTRAL): CHEST PAIN, DYSPNEA ON EXERTION CONSTITUTIONAL SYMPTOMS (GENERAL HEALTH): CHILLS, FEVER, LOSS OF APPETITE, MARKED WEIGHT CHANGE PRIOR WOUND HISTORY: ERYTHEMA, MALODOR RESPIRATORY: COUGH, SHORTNESS OF BREATH OBJECTIVE VITALS FANTA BAXTER ROCCO B [id number] 1975 HEIGHT/LENGTH: 68 IN (172.72 CM), WEIGHT: 177.5 LBS (80.68 KGS), BMI: 27, TEMPERATURE: 98.0 ?F (36.67 ?C), PULSE: 75 BPM, RESPIRATORY RATE: 18 BREATHS/MIN, BLOOD PRESSURE: 133/76 MMHG, PULSE OXIMETRY: 100 %. PHYSICAL EXAM CONSTITUTIONAL: VITAL SIGNS REVIEWED AND NOTED. WELL DEVELOPED, WELL NOURISHED, AND IN NO ACUTE DISTRESS. ALERT AND ORIENTED X3. RESPIRATORY: EVEN RESPIRATIONS WITHOUT USE OF ACCESSORY MUSCLES. NO INTERCOASTAL RETRACTIONS NOTED. EVEN AND NON LABORED RESPIRATION. INTEGUMENTARY (HAIR, SKIN): NO ERYTHEMA. NO SWELLING OR TENDERNESS. SEE WOUND ASSESSMENT. SKIN WARM AND DRY. NEUROLOGICAL: SENSATION: SYMMETRIC FUNCTION BY INFORMAL OBSERVATION. PSYCHIATRIC: ORIENTATION TO TIME, PLACE AND PERSON: NORMAL AFFECT WITH NORMAL THOUGHT PATTERN. ADDITIONAL INFORMATION THE PATIENT'S POTENTIAL TO HEAL IS: GOOD. WOUND ASSESSMENT(S) WOUND #1 LEFT, PROXIMAL BREAST IS A CHRONIC FULL THICKNESS SURGICAL WOUND ACQUIRED ON 03/30/2024 AND HAS RECEIVED A STATUS OF NOT HEALED. INITIAL WOUND ENCOUNTER MEASUREMENTS ARE 2.5CM LENGTH X 1.9CM WIDTH X 0.1 CM DEPTH, WITH AN AREA OF 4.75 SQ CM AND A VOLUME OF 0.475 CUBIC CM.INITIAL WOUND ENCOUNTER PREVIOUS MEASUREMENTS FROM 05/07/2024 ARE 2.4CM LENGTH X 2.2CM WIDTH X 0.1CM DEPTH, WITH AN AREA OF 5.28 SQ CM AND A VOLUME OF 0.528 CUBIC CM. ADIPOSE IS EXPOSED. NO TUNNELING HAS BEEN NOTED. NO SINUS TRACT HAS BEEN NOTED. NO UNDERMINING HAS BEEN NOTED. THERE IS A MODERATE AMOUNT OF SEROSANGUINEOUS DRAINAGE NOTED WHICH HAS NO ODOR. THE PATIENT REPORTS A WOUND PAIN OF LEVEL 3/10. THE WOUND MARGIN IS ATTACHED WOUND BED HAS YES, BRIGHT RED, PINK, FIRM, GRANULATION, YES SLOUGH, NO ESCHAR, YES EPITHELIALIZATION. THE PERIWOUND SKIN DID NOT EXHIBIT BRAWNY INDURATION, EDEMA, EXCORIATION, INDURATION, CALLUS, CREPITUS, FLUCTUANCE, RASH, MACERATION, ATROPHIE TANYA, CYANOSIS, ECCHYMOSIS, ERYTHEMA, HEMOSIDEROSIS, PALLOR AND RUBOR. THE PERIWOUND SKIN WAS FRIABLE. THE PERIWOUND SKIN WAS NOT DRY/SCALY AND MOIST. THE TEMPERATURE OF THE PERIWOUND SKIN IS WNL. PERIWOUND SKIN DOES NOT EXHIBIT SIGNS OR SYMPTOMS OF INFECTION. LOCAL PULSE IS N/A. ADDITIONAL INFORMATION OTHER DEVITALIZED TISSUE PRESENT: BIOFILM WOUND #4 ABDOMEN - RLQ IS A CHRONIC FULL THICKNESS SURGICAL WOUND ACQUIRED ON 04/16/2024 AND HAS RECEIVED A STATUS OF NOT HEALED. INITIAL WOUND ENCOUNTER MEASUREMENTS ARE 0.2CM LENGTH X 0.5CM WIDTH X 0.1 CM DEPTH, WITH AN AREA OF 0.1 SQ CM AND A VOLUME OF 0.01 CUBIC CM.INITIAL WOUND ENCOUNTER PREVIOUS MEASUREMENTS FROM 05/07/2024 ARE 0.4CM LENGTH X 1.1CM WIDTH X 0.1CM DEPTH, WITH AN AREA OF 0.44 SQ CM AND A VOLUME OF 0.044 CUBIC CM. ADIPOSE IS EXPOSED. NO TUNNELING HAS BEEN NOTED. NO SINUS TRACT HAS BEEN NOTED. NO UNDERMINING HAS BEEN NOTED. THERE IS A MODERATE AMOUNT OF SEROUS DRAINAGE NOTED WHICH HAS NO ODOR. THE PATIENT REPORTS A WOUND PAIN OF LEVEL 3/10. THE WOUND MARGIN IS UNATTACHED WOUND BED HAS YES, PINK, FIRM, GRANULATION, YES SLOUGH, NO ESCHAR, NO EPITHELIALIZATION. THE PERIWOUND SKIN EXHIBITED INDURATION. THE PERIWOUND SKIN DID NOT EXHIBIT BRAWNY INDURATION, EDEMA, EXCORIATION, CALLUS, CREPITUS, FLUCTUANCE, RASH, MACERATION, ATROPHIE TANYA, CYANOSIS, ECCHYMOSIS, ERYTHEMA, HEMOSIDEROSIS, PALLOR AND RUBOR. THE PERIWOUND SKIN WAS NOT FRIABLE, DRY/SCALY AND MOIST. THE TEMPERATURE OF THE PERIWOUND SKIN IS WNL. PERIWOUND SKIN DOES NOT EXHIBIT SIGNS OR SYMPTOMS OF INFECTION. LOCAL PULSE IS N/A. ADDITIONAL INFORMATION OTHER DEVITALIZED TISSUE PRESENT: CHELSEA ROCCO CANO [id number] 1975 ASSESSMENT ACTIVE PROBLEMS ICD-10 (ENCOUNTER DIAGNOSIS) S21.002D - UNSPECIFIED OPEN WOUND OF LEFT BREAST, SUBSEQUENT ENCOUNTER (ENCOUNTER DIAGNOSIS) T81.31XD - DISRUPTION OF EXTERNAL OPERATION (SURGICAL) WOUND, NOT ELSEWHERE CLASSIFIED, SUBSEQUENT ENCOUNTER (ENCOUNTER DIAGNOSIS) S31.109D - UNSPECIFIED OPEN WOUND OF ABDOMINAL WALL, UNSPECIFIED QUADRANT WITHOUT PENETRATION INTO PERITONEAL CAVITY, SUBSEQUENT ENCOUNTER GENERAL NOTES OPEN WOUND LEFT NIPPLE AREOLA COMPLE IMPROVED OPEN WOUND ABDOMEN WOUND IMPROVED THE FOLLOWING FACTORS HAVE BEEN IDENTIFIED THAT MAY AFFECT WOUND HEALING: DEVITALIZED TISSUE BIOFILM RECENT SURGERY INFECTION GOALS: REMOVE DEVITALIZED TISSUE REMOVE AND PREVENT BIOFILM IDENTIFY AND TREAT INFECTION WOUND CLOSURE PLAN: DEBRIDEMENT, SWITCH TO DRESSING CHANGES WITH JUST ADAPTIC TO BOTH WOUNDS, RINSE WOUNDS WITH VASHE SOLUTION WITH EACH DRESSING CHANGE. CONTINUE PROTEIN SUPPLEMENTATION. FOLLOW UP IN 1 WEEK FOR A RECHECK. PROCEDURES WOUND #1 WOUND #1 (SURGICAL WOUND) IS LOCATED ON THE LEFT, PROXIMAL BREAST. A SKIN/SUBCUTANEOUS TISSUE LEVEL SURGICAL DEBRIDEMENT WITH A TOTAL AREA DEBRIDED OF 4.75 SQ CM. WAS PERFORMED BY PAUL LEVINE MD. SUBCUTANEOUS WAS REMOVED ALONG WITH DEVITALIZED TISSUE: BIOFILM, EXUDATE AND SLOUGH. THE FOLLOWING INSTRUMENT(S) WERE USED: CURETTE. PAIN CONTROL WAS ACHIEVED USING EMLA LIDOCAINE/PRILOCAINE 2.5%/2.5%. A TIME OUT WAS CONDUCTED PRIOR TO THE START OF THE PROCEDURE. A MINIMAL AMOUNT OF BLEEDING WAS CONTROLLED WITH PRESSURE. THE PROCEDURE WAS TOLERATED WELL WITH A PAIN LEVEL OF 0 THROUGHOUT AND A PAIN LEVEL OF 0 FOLLOWING THE PROCEDURE. POST DEBRIDEMENT MEASUREMENTS: 2.5CM LENGTH X 1.9CM WIDTH X 0.2CM DEPTH; WITH AN AREA OF 4.75 SQ CM AND A VOLUME OF 0.95 CUBIC CM. WOUND #4 WOUND #4 (SURGICAL WOUND) IS LOCATED ON THE ABDOMEN - RLQ. A SKIN/SUBCUTANEOUS TISSUE LEVEL SURGICAL DEBRIDEMENT WITH A TOTAL AREA DEBRIDED OF 0.1 SQ CM. WAS PERFORMED BY PAUL LEVINE MD. SUBCUTANEOUS WAS REMOVED ALONG WITH DEVITALIZED TISSUE: BIOFILM, EXUDATE AND SLOUGH. THE FOLLOWING INSTRUMENT(S) WERE USED: CURETTE. PAIN CONTROL WAS ACHIEVED USING EMLA LIDOCAINE/PRILOCAINE 2.5%/2.5%. A TIME OUT WAS CONDUCTED PRIOR TO THE START OF THE PROCEDURE. A MINIMAL AMOUNT OF BLEEDING WAS CONTROLLED WITH PRESSURE. THE PROCEDURE WAS TOLERATED WELL WITH A PAIN LEVEL OF 0 THROUGHOUT AND A PAIN LEVEL OF 0 FOLLOWING THE PROCEDURE. POST DEBRIDEMENT MEASUREMENTS: 0.2CM LENGTH X 0.5CM WIDTH X 0.2CM DEPTH; WITH AN AREA OF 0.1 SQ CM AND A VOLUME OF 0.02 CUBIC CM. ADDITIONAL INFORMATION MUSCLE FASCIA OR BONE REMOVED AND SENT TO PATHOLOGY?: NO ROCCO CANO [id number] 1975 PLAN WOUND ORDERS: WOUND #1 LEFT, PROXIMAL BREAST HAND HYGIENE HAND HYGIENE - WASH HANDS BEFORE AND AFTER WOUND CARE. CALL THE WOUND CENTER AT [phone] IF YOU HAVE SIGNS OR SYMPTOMS OF INFECTION, FEVER CHILLS OR SHAKES, INCREASED DRAINAGE, INCREASED ODOR OR UNUSUAL REDNESS. AFTER WOUND CENTER HOURS PLEASE NOTIFY YOUR PCP OR GO TO THE EMERGENCY ROOM. CLEANSER CLEANSE WOUND WITH NORMAL SALINE CLEANSE WOUND AND ABA WOUND WITH A NON-CYTOTOXIC WOUND CLEANSER. - RECOMMEND PURCHASING VASHE TO CLEANSE WOUNDS AT HOME, HANDOUT GIVEN IN CLINIC TODAY. MAY SHOWER, LEAVE WOUND DRESSING INTACT. COVER WOUND DRESSING WITH A WATERPROOF BARRIER. KEEP DRESSING DRY. NO BATHS PLEASE. - CHANGE DRESSING IMMEDIATELY AFTER SHOWERING. PROCEDURE / ANESTHETIC 4% TOPICAL LIDOCAINE TO WOUND BED PRIOR TO PROCEDURE, IN CLINIC ONLY. DRESSING ORDERS APPLY DRESSING(S) AND SECURE WITH: - THEN HYDROFERA BLUE FOAM, COVER WITH BORDERED SILICONE FOAM. DRESSING CHANGE FREQUENCY CHANGE DRESSING 3 TIMES PER WEEK. CHANGE DRESSING IF IT BECOMES SOILED OR WET. WOUND #4 ABDOMEN - RLQ HAND HYGIENE HAND HYGIENE - WASH HANDS BEFORE AND AFTER WOUND CARE. CALL THE WOUND CENTER AT [phone] IF YOU HAVE SIGNS OR SYMPTOMS OF INFECTION, FEVER CHILLS OR SHAKES, INCREASED DRAINAGE, INCREASED ODOR OR UNUSUAL REDNESS. AFTER WOUND CENTER HOURS PLEASE NOTIFY YOUR PCP OR GO TO THE EMERGENCY ROOM. CLEANSER CLEANSE WOUND WITH NORMAL SALINE CLEANSE WOUND AND ABA WOUND WITH A NON-CYTOTOXIC WOUND CLEANSER. - RECOMMEND PURCHASING VASHE TO CLEANSE WOUNDS AT HOME, HANDOUT GIVEN IN CLINIC TODAY. MAY SHOWER, LEAVE WOUND DRESSING INTACT. COVER WOUND DRESSING WITH A WATERPROOF BARRIER. KEEP DRESSING DRY. NO BATHS PLEASE. - CHANGE DRESSING IMMEDIATELY AFTER SHOWERING. PROCEDURE / ANESTHETIC 4% TOPICAL LIDOCAINE TO WOUND BED PRIOR TO PROCEDURE, IN CLINIC ONLY. DRESSING ORDERS APPLY DRESSING(S) AND SECURE WITH: - HYDROFERA BLUE, BORDERED SILICONE FOAM. DRESSING CHANGE FREQUENCY CHANGE DRESSING 3 TIMES PER WEEK. CHANGE DRESSING IF IT BECOMES SOILED OR WET. ADDITIONAL ORDERS: DIETARY TAKE VITAMIN C 1000MG BY MOUTH DAILY. TAKE ZINC 25MG BY MOUTH DAILY. INCREASE THE PROTEIN IN YOUR DIET. - AIM FOR ADDITIONAL 30 GRAMS BETWEEN MEALS, AIDS IN WOUND HEALING. FOLLOW-UP APPOINTMENTS RETURN APPOINTMENT 1 WEEK SCRIBING ATTESTATION I ATTEST, THE NURSE, THAT I SCRIBED THESE ORDERS FOR THE WOUND CARE PROVIDER. PROVIDER REVIEW AND ATTESTATION: REVIEWED AND EVALUATED LABS. REVIEWED HOSPITAL RECORDS. DISCUSSED THE PLAN OF CARE @ BEDSIDE WITH - THE PATIENT I AGREE AND ATTEST TO THE ABOVE INFORMATION PROVIDED FROM OTHER LICENSED PROFESSIONALS. PLAN OF CARE: ROCCO CANO [id number] 1975 01. ENSURE/ESTABLISH OPTIMAL BLOOD FLOW : - REVIEWED, NOT APPLICABLE 02. ASSESS FOR/TREAT INFECTION : - EVALUATE FOR SIGNS AND SYMPTOMS OF INFECTION AND DOCUMENT FINDINGS. STATUS: CONTINUED DATE: 05/13/2024 - OBTAIN CULTURE AND SENSITIVITY (CANDS) OR TISSUE CULTURE WHEN INFECTION IS SUSPECTED. (NOTE:) CONSIDER REPEATING WHEN WOUND HEALING <40% AFTER 30 DAYS OF WOUND CARE. STATUS: CONTINUED DATE: 05/13/2024 03. DEBRIDE WEEKLY OR MORE OFTEN PRN : - EVALUATE PATIENT IN CENTER WEEKLY TO ASSESS WOUND BED AND MARGINS FOR NEED FOR DEBRIDEMENT. STATUS: CONTINUED DATE: 05/13/2024 - DEBRIDEMENT BY ANY METHOD TO REMOVE DEVITALIZED/NECROTIC TISSUE TO PROMOTE HEALING AND PREVENT FURTHER COMPLICATIONS. GOAL IS TO STIMULATE AND/OR MAINTAIN ACUTE PHASE OF WOUND HEALING BY REDUCING BACTERIAL BURDEN AND DEVITALIZED/NON-VIABLE TISSUE. STATUS: CONTINUED DATE: 05/13/2024 04. OPTIMIZE GLUCOSE CONTROL AND NUTRITION : - ORDER/REVIEW PERTINENT LABS TO EVALUATE RENAL FUNCTION, GLUCOSE CONTROL, AND NUTRITIONAL STATUS. STATUS: CONTINUED DATE: 05/13/2024 - COMPLETE A NUTRITION RISK ASSESSMENT. STATUS: COMPLETED DATE: 05/13/2024 05. OFFLOADING PLAN : - REVIEWED, NOT APPLICABLE 06. OPTIMIZE HOST FACTORS: - ASSESS AND REVIEW PATIENT HISTORY FOR WOUND ETIOLOGY, CO-MORBID CONDITIONS, MEDICATION REGIME, AND SMOKING HISTORY. STATUS: COMPLETED DATE: 05/13/2024 07. DRESSING SELECTION : - EVALUATE FOR DRESSING-RELATED FACTORS, SUCH AVAILABILITY, WEAR TIME, ADAPTABILITY AND USE TO BETTER OPTIMIZE WOUND HEALING AND PATIENT COMPLIANCE. STATUS: CONTINUED DATE: 05/13/2024 - EDUCATE THE PATIENT/FAMILY/CAREGIVER TO MONITOR DRESSING DAILY. CHANGE DRESSING ONLY NEEDED BUT NEVER LESS FREQUENTLY THAN WEEKLY SO THAT WOUND BED CAN BE REASSESSED. STATUS: CONTINUED DATE: 05/13/2024 08. ADVANCED MODALITIES : - RE-EVALUATE PLAN OF CARE IF NO EVIDENCE OF HEALING (40% IN 4 WEEKS). STATUS: CONTINUED DATE: 05/13/2024 09. FALL PREVENTION : - COMPLETE FALL ASSESSMENT. STATUS: COMPLETED DATE: 04/16/2024 10. PAIN MANAGEMENT : - COMPLETE PAIN ASSESSMENT STATUS: COMPLETED DATE: 04/16/2024 11. MEASURABLE GOALS FOR WOUND HEALING AND/OR HYPERBARIC OXYGEN THERAPY : - WOUND CLOSURE STATUS: CONTINUED DATE: 05/13/2024 12. DURATION/FREQUENCY OF WOUND CARE VISITS : - 1X WEEKLY FOR 30 DAYS STATUS: CONTINUED DATE: 05/13/2024 ROCCO CANO [id number] 1975 ELECTRONIC SIGNATURE(S) SIGNED BY: DATE: PAUL LEVINE MD 05/13/2024 15:58:23 (PT) ENTERED BY: PAUL LEVINE MD ON 05/13/2024 13:08:54 (PT) ROCCO CANO [id number] 1975
== END ==
LOC: WC 11:31
PROVIDERS: PCP Family Medicine; Referring Provider Family Medicine; Visit Provider Surgery
DX: T81.31XA Disruption of external operation (surgical) wound, not elsewhere classified, initial encounter (principal); S21.002A Unspecified open wound of left breast, initial encounter; S31.103A Unspecified open wound of abdominal wall, right lower quadrant without penetration into peritoneal cavity, initial encounter
CPT/HCPCS: 11042

== ENCOUNTER → 2024-05-21 11:04 | Outpatient (CLI) | payer OTHER, SELFPAY ==
[2024-01-10 09:23] VITALS: BMI 40.1
== END ==
LOC: WC 11:04
PROVIDERS: PCP Family Medicine; Referring Provider Family Medicine; Visit Provider Surgery
DX: T81.31XA Disruption of external operation (surgical) wound, not elsewhere classified, initial encounter (principal); S21.002A Unspecified open wound of left breast, initial encounter; S31.109D Unspecified open wound of abdominal wall, unspecified quadrant without penetration into peritoneal cavity, subsequent encounter
CPT/HCPCS: 11042

== ENCOUNTER → 2024-05-27 10:36 | Outpatient (CLI) | payer OTHER, SELFPAY ==
[2024-01-10 09:23] VITALS: BMI 40.1
[2024-05-27 12:06] LABS: Add Manual Diff / Slide Review NO; Basophils Absolute Auto 100 /uL (0-100); Eosinophils Absolute Auto 200 /uL (0-450); Eosinophils Percent Auto 2.9 % (2-4); Hematocrit 30.2 % (36-46); Hemoglobin 9.5 g/dL (12.0-16.0); Lymphocytes Absolute Auto 2000 /uL (1100-4500); Lymphocytes Percent Auto 31.5 % (25-40); Mean Corpuscular HGB Conc 31.3 % (30-36); Mean Corpuscular Hemoglobin 22.2 PG (26-34); Mean Corpuscular Volume 71.1 fL (80-100); Monocytes Absolute Auto 400 /uL (0-900); Monocytes Percent Auto 6.3 % (3-14); Neutrophils Absolute Auto 3700 /uL (1500-7000); Neutrophils Percent Auto 58.3 % (50-75); Platelet Count 199 X10^3/uL (150-400); Red Blood Cell Count 4.25 X10^6/uL (4.0-5.2); Red Cell Distribution Width 18.1 % (11.6-14.8); White Blood Cell Count 6.4 X10^3/uL (4.5-11.0)
[2024-05-27 12:17] LABS: Hemoglobin A1C% w Est Avg Glu 4.7 % (4.0-6.0)
[2024-05-27 12:24] LABS: Iron 29 ug/dL (37-170)
[2024-05-27 12:33] LABS: Alanine Aminotransferase 10 IU/L (<35); Albumin 3.9 g/dL (3.5-5.0); Albumin Globulin Ratio 1.3 (1.0-2.8); Alkaline Phosphatase 65 U/L (38-126); Aspartate Aminotransferase 19 IU/L (14-36); BUN Creatinine Ratio 10.3 (6-22); Bilirubin Total 0.5 mg/dL (0.2-1.3); Blood Urea Nitrogen 6 mg/dL (7-17); Calcium 8.8 mg/dL (8.4-10.2); Carbon Dioxide 23 mmol/L (22-32); Chloride 106 mmol/L (98-107); Cholesterol 198 mg/dL (140-199); Estimated Glomerular Filt Rate > 60 mL/min (>60); Globulin 3.1 g/dL (1.7-4.1); Glucose 85 mg/dL (70-100); HDL Cholesterol 78 mg/dL (40-60); HEMOLYSIS < 15 (0-50); LDL Cholesterol Calculated 106 mg/dL (<100); Potassium 4.5 mmol/L (3.4-5.1); Sodium 137 mmol/L (137-145); Triglycerides 70 mg/dL (35-150)
[2024-05-27 12:41] LABS: Vitamin D 25 Hydroxy (D3) 15.3 ng/mL (30.0-100.0)
[2024-05-27 12:58] LABS: Thyroid Stimulating Hormone 0.208 uIU/mL (0.47-4.68)
[2024-05-27 13:04] LABS: Ferritin 16 ng/mL (6-137)
[2024-05-27 13:33] LABS: Folate 4.6 ng/mL (2.76-20.0); Vitamin B12 409 pg/mL (239-931)
[2024-06-07 14:40] LABS: Vitamin B1 84.7 nmol/L (66.5-200.0)
== END ==
PROVIDERS: PCP Family Medicine; Referring Provider Surgery; Visit Provider Surgery
DX: E63.9 Nutritional deficiency, unspecified (principal); K90.9 Intestinal malabsorption, unspecified; Z98.84 Bariatric surgery status
CPT/HCPCS: 36415; 80053; 80061; 82306; 82607; 82728; 82746; 83036; 83540; 84425; 84443; 85025

== ENCOUNTER → 2024-06-04 11:19 | Outpatient (CLI) | payer OTHER, SELFPAY ==
[2024-01-10 09:23] VITALS: BMI 40.1
== END ==
PROVIDERS: PCP Family Medicine; Referring Provider Family Medicine; Visit Provider Surgery
DX: S21.002D Unspecified open wound of left breast, subsequent encounter (principal); T81.31XD Disruption of external operation (surgical) wound, not elsewhere classified, subsequent encounter
CPT/HCPCS: 99212; 99213

== ENCOUNTER → 2025-02-01 11:00 | Outpatient (CLI) | payer OTHER, SELFPAY ==
[2024-10-23 10:47] VITALS: BMI 40.1
[2025-02-01 13:15] LABS: Add Manual Diff / Slide Review NO; Hematocrit 36.2 % (36-46); Hemoglobin 11.6 g/dL (12.0-16.0); Lymphocytes Absolute Auto 2400 /uL (1100-4500); Mean Corpuscular HGB Conc 32.1 % (30-36); Mean Corpuscular Hemoglobin 24.5 PG (26-34); Mean Corpuscular Volume 76.3 fL (80-100); Platelet Count 210 X10^3/uL (150-400)
[2025-02-01 13:36] LABS: HEMOLYSIS < 15 (0-50); Iron 45 ug/dL (37-170)
[2025-02-01 13:43] LABS: Alanine Aminotransferase 8 IU/L (<35); Albumin 3.9 g/dL (3.5-5.0); Albumin Globulin Ratio 1.3 (1.0-2.8); Alkaline Phosphatase 56 U/L (38-126); Blood Urea Nitrogen 10 mg/dL (7-17); Calcium 8.8 mg/dL (8.4-10.2); Carbon Dioxide 25 mmol/L (22-32); Chloride 105 mmol/L (98-107); Estimated Glomerular Filt Rate > 60 mL/min (>60); Globulin 2.9 g/dL (1.7-4.1); Glucose 74 mg/dL (70-99); HEMOLYSIS < 15 (0-50); Potassium 4.6 mmol/L (3.4-5.1); Sodium 137 mmol/L (137-145); Total Protein 6.8 g/dL (6.3-8.2)
[2025-02-01 13:48] LABS: Percent Iron Saturation 12 % (15-50); Total Iron Binding Capacity 390 ug/dL (265-497); Transferrin 340 mg/dL (206-381)
[2025-02-01 14:11] LABS: TSH w/ Reflex to FT4 0.14 uIU/mL (0.47-4.68)
[2025-02-01 14:13] LABS: Ferritin 5 ng/mL (11-264)
[2025-02-01 14:47] LABS: Folate 10.8 ng/mL (2.76-20.0); Vitamin B12 661 pg/mL (239-931)
[2025-02-01 16:28] LABS: Vitamin D 25 Hydroxy (D3) 28.5 ng/mL (30.0-100.0)
[2025-02-01 17:26] LABS: Free T4, Direct Thyroxine 1.04 ng/dL (0.78-2.19)
[2025-02-02 15:08] LABS: Insulin Level Total 5.7 uIU/mL (2.6-24.9)
== END ==
PROVIDERS: PCP Family Medicine; Referring Provider Internal Medicine Gastroenterology; Visit Provider Internal Medicine Gastroenterology
DX: K50.018 Crohn's disease of small intestine with other complication (principal); E78.5 Hyperlipidemia, unspecified; K50.90 Crohn's disease, unspecified, without complications; D50.9 Iron deficiency anemia, unspecified; I10 Essential (primary) hypertension; F52.0 Hypoactive sexual desire disorder; Z90.3 Acquired absence of stomach [part of]
CPT/HCPCS: 36415; 80053; 82306; 82607; 82728; 82746; 83525; 83540; 83550; 83993; 84425; 84439; 84443; 85025; 86140